=== PATIENT | female | born 1960 | race African-American/Black ===

== ENCOUNTER 2017-03-07 08:12 | Inpatient (IN) | payer OTHER ==
[2017-03-07 09:52] VITALS: BMI 25.0
--- NOTE | 2017-03-07 11:22 | HP ---
COWS - Scale Resting Pulse: 0= [place] 80 or Below Sweatin= Chills/Flushing Restless Observation: 1= Difficult to Sit Still Pupil Size: 1= Pupils >than Normal Bone or Joint Aches: 1= Mild Discomfort Runny Nose/ Eye Tearin= Nasal Congestion GI Upset > 30mins: 2= Nausea/Diarrhea Tremor Observation: 1= Tremor [place], Not Seen Yawning Observation: 1= 1-2x During Session Anxiety or Irritability: 2=Irritable/Anxious Goose Flesh Skin: 3=Piloerection COWS Score: 14 Admission [facility] Chief Complaint: opioid withdrawal sx Allergies/Adverse Reactions: Allergies Allergy/AdvReac Type Severity Reaction Status Date / Time No Known Allergies Allergy Verified 03/07/17 10:11 History of Present Illness: 56 yo f with h/o addiction - crack cocaoien in past, has developed opioid dependence after surgeryand now using percocets daily, last used today. has opioid withdrawal sx when she does not use, denies alcohol use, no seizures, no DTs, no si at thsi time. Exam Limitations: No Limitations - Ebola screening Have you traveled outside of the country in the last 21 days: No Have you had contact with anyone from an Ebola affected area: No Have you been sick,other than usual withdrawal symptoms: No - Review of Systems Constitutional: Chills, Diaphoresis, Night Sweats, Changes in sleep, Weight Stable EENT: reports: Tearing, Nose Congestion Respiratory: reports: No Symptoms reported Cardiac: reports: No Symptoms Reported GI: reports: Diarrhea, Nausea, Poor Appetite, Poor Fluid Intake, Rectal Bleeding , Vomiting, Indigestion, Abdominal cramping : reports: No Symptoms Reported Musculoskeletal: reports: Back Pain, Joint Pain, Muscle Pain Integumentary: reports: Flushing, Sweating Neuro: reports: Headache, Numbness, Tingling, Tremors Endocrine: reports: Increased Thirst Hematology: reports: No Symptoms Reported Psychiatric: reports: Judgement Intact, Mood/Affect Appropiate, Orientated x3, Anxious, Depressed Other Systems: Reviewed and Negative Patient History - Patient Medical History Hx Anemia: No Hx Asthma: No Hx Chronic Obstructive Pulmonary Disease (COPD): No Hx Cancer: No Hx Cardiac Disorders: No Hx Congestive Heart Failure: No Hx Hypertension: Yes Hx Hypercholesterolemia: No Hx Pacemaker: No HX Cerebrovascular Accident: No Hx Seizures: No Hx Dementia: No Hx Diabetes: No Hx Gastrointestinal Disorders: No Hx Liver Disease: No Hx Genitourinary Disorders: No Hx Sexually Transmitted Disorders: Yes (COLD SORE) Hx Renal Disease (ESRD): No Hx Thyroid Disease: No Hx Human Immunodeficiency Virus (HIV): No Hx Hepatitis C: No Hx Depression: Yes (THERAPY ONCE A MONTH) Hx Suicide Attempt: No (no Si) Hx Bipolar Disorder: No Hx Schizophrenia: No - Patient Surgical History Past Surgical History: No Hx Neurologic Surgery: No Hx Cataract Extraction: No Hx Cardiac Surgery: No Hx Lung Surgery: No Hx Breast Surgery: No Hx Breast Biopsy: No Hx Abdominal Surgery: No Hx Appendectomy: No Hx Cholecystectomy: No Hx Genitourinary Surgery: No Hx Section: No Hx Orthopedic Surgery: No Other Surgical History: SURGERY FOR GANGLIA CYST OF RIGHT HAND Anesthesia Reaction: No - PPD History Previous Implant?: No PPD to be Administered?: Yes - Reproductive History Patient is a Female of Child Bearing Age (11 -55 yrs old): No Patient : No - Smoking Cessation Smoking history: Never smoked Have you smoked in the past 12 months: No Hx Chewing Tobacco Use: No Initiated information on smoking cessation: No 'Breaking Loose' booklet given: 03/07/17 - Substance & Tx. History Hx Alcohol Use: No Hx Substance Use: Yes Substance Use Type: Cocaine, Opiates, Prescribed Hx Substance Use Treatment: Yes ([facility]) - Substances Abused PERCOCET Route: Oral Frequency: Daily Amount used: 10-12 10MG PILLS Age of first use: 56 Date of Last Use: 03/07/17 Family Disease History - Family Disease History Family Disease History: Other: Mother (alcoholic) Admission Physical Exam S - Vital Signs Vital Signs: Vital Signs - 24 hr 03/07/17 09:30 Temperature 96.4 F L Pulse Rate 77 Respiratory 20 Rate Blood Pressure 158/106 - Physical General Appearance: Yes: Nourished, Appropriately Dressed, Disheveled, Mild Distress, Thin, Tremorous, Irritable, Sweating, Anxious HEENTM: Yes: EOMI, Hearing grossly Normal, Normocephalic, Normal Voice, OSVALDO, Pharynx Normal, Rhinorrhea Respiratory: Yes: Within Normal Limits, Chest Non-Tender, Lungs Clear, Normal Breath Sounds Neck: Yes: Within Normal Limits, No masses,lesions,Nodules, Supple, Trachea in good position Breast: Yes: Breast Exam Deferred Cardiology: Yes: Within Normal Limits, Regular Rhythm, Regular Rate, S1, S2 Abdominal: Yes: Within Normal Limits, Normal Bowel Sounds, Non Tender, Flat, Soft, Increased Bowel Sounds Genitourinary: Yes: Within Normal Limits Back: Yes: Normal Inspection, Muscle Spasm Musculoskeletal: Yes: Within Normal Limits, full range of Motion, Gait Steady, Pelvis Stable Extremities: Yes: Normal Capillary Refill, Normal Inspection, Normal Range of Motion, Non-Tender, Tremors Neurological: Yes: selling manager II-XII NML intact, Fully Oriented, Alert, Motor Strength 5/5, Normal Response, Depressed Affect Integumentary: Yes: Normal Color, Warm, Diaphoresis, Moist Lymphatic: Yes: Within Normal Limits - Addiitonal Findings: withdrawal sx - Diagnostic (1) Opioid dependence with withdrawal Current Visit: Yes Status: Acute (2) Depression Current Visit: Yes Status: Acute (3) Anxiety Current Visit: Yes Status: Acute (4) Dehydration Current Visit: Yes Status: Acute Cleared for Admission [facility] - Detox or Rehab [facility] Level of Care: Medically Managed Detox Regimen/Protocol: Methadone [facility] Breath Alcohol Content Breath Alcohol Content: 0 Urine Pregancy Test - Result Urine Test Results: Negative- NO Line Present Urine Drug Screen - Results Drug Screen Negative: No Urine Drug Screen Results: OXY-Oxycodone
[2017-03-07] MEDS ORDERED: MAGNESIUM HYDROX 2400MG/30ML ORAL SUSPENSION 30 ML CUP PO PRN (11:24)
[2017-03-07] MEDS ORDERED: P-EPHED 60MG/TRIPROLIDI 2.5MG TABLET PO PRN (11:24)
[2017-03-07] MEDS ORDERED: MENTHOL/PHENOL 1 EACH UD MM PRN (11:24)
[2017-03-07] MEDS ORDERED: guaiFENesin/D-METHORPHAN HB 10 ML UNIT-DOSE CUPS PO PRN (11:24)
[2017-03-07] MEDS ORDERED: MAGNESIUM CITRATE 300 ML BOTTLE PO PRN (11:24)
[2017-03-07] MEDS ORDERED: METHADONE HCL 10 MG TABLET (FOR DETOX USE ONLY) PO ONE ×2 (11:50→23:00)
[2017-03-07] MEDS: cloNIDine HCL 0.1 MG TABLET PO SCH ×2 (12:46→22:18)
[2017-03-07] MEDS: diazePAM 5 MG TABLET PO PRN ×3 (12:49→22:19)
[2017-03-07] MEDS: IBUPROFEN 400 MG TABLET (FP) PO PRN (17:04)
--- NOTE | 2017-03-07 17:32 | CONSULT ---
[facility] Psychiatric Consult - Data Date of interview: 03/07/17 Admission source: [facility] Identifying data: Pt. is a 56 year old female, separted, mother of three, and currently unemployed. This is patient's first admission to [facility]. Pt. admitted for opiate dependence. Substance Abuse History: Smoking Cessation. Smoking history: Never smoked. Have you smoked in the past 12 months: No. Hx Chewing Tobacco Use: No. Initiated information on smoking cessation: No. 'Breaking Loose' booklet given : 03/07/17. - Substance & Tx. History. Hx Alcohol Use: No. Hx Substance Use: Yes. Substance Use Type: Cocaine, Opiates, Prescribed. Hx Substance Use Treatment: Yes ([facility]). - Substances Abused. PERCOCET. Route: Oral. Frequency: Daily. Amount used: 10-12 10MG PILLS. Age of first use: 56. Date of Last Use: 03/07/17 Medical History: Denies. Psychiatric History: Pt. reports one psychatric hospitalization over [address] [facility]. Reports a diagnosis of anxiety and depression. Denies h/o OPC. Reports seeing a therapist daily. Denies h/o psychotrophic medications. Reports one suicide attempt 20 years ago by cutting her left wrist. Pt. denies suicidal and homicidal ideation. Physical/Sexual Abuse/Trauma History: Denies. Mental Status Exam - Mental Status Exam Alert and Oriented to: Time, Place, Person Cognitive Function: Good Patient Appearance: Well Groomed Mood: Hopeful, Happy Affect: Appropriate Patient Behavior: Cooperative Speech Pattern: Clear, Appropriate Voice Loudness: Normal Thought Process: Goal Oriented Thought Disorder: Not Present Hallucinations: Denies Suicidal Ideation: Denies Homicidal Ideation: Denies Insight/Judgement: Poor Sleep: Fair Appetite: Good Muscle strength/Tone: Normal Gait/Station: Normal Psychiatric Findings - Problem List ([place] 1, 2,3) (1) Opioid dependence with withdrawal Current Visit: Yes Status: Acute (2) MDD (major depressive disorder), single episode Current Visit: No Status: Suspected Comment: Self reports. One episode over 8 years agol. - Initial Treatment Plan Initial Treatment Plan: Psychoeducation provided. Detoxification in progress. Observation.
[2017-03-07 20:43] LABS: URINE APPEARANCE CLEAR; URINE BILIRUBIN NEGATIVE (NEGATIVE); URINE BLOOD NEGATIVE (NEGATIVE); URINE COLOR LTYELLOW; URINE GLUCOSE (UA) NEGATIVE (NEGATIVE); URINE KETONE NEGATIVE (NEGATIVE); URINE LEUK ESTERASE NEGATIVE (NEGATIVE); URINE NITRITE NEGATIVE (NEGATIVE); URINE PROTEIN NEGATIVE (NEGATIVE); URINE UROBILINOGEN NEGATIVE mg/dL (0.2-1.0)
[2017-03-07] MEDS: THIAMINE HCL 100 MG TABLET (FP) PO SCH (22:19)
[2017-03-08] MEDS: diazePAM 5 MG TABLET PO PRN ×3 (07:22→22:22)
[2017-03-08 09:49] LABS: HEMATOCRIT 39.1 % (32.4-45.2); HEMOGLOBIN 12.5 GM/dL (10.7-15.3); MCH 28.8 pg (25.7-33.7); MCHC 31.9 g/dl (32.0-36.0); MEAN CELL VOLUME 90.3 fl (80-96); MEAN PLT VOLUME 10.3 fl (7.5-11.1); PLATELET COUNT 197 K/MM3 (134-434); RBC 4.33 M/mm3 (3.60-5.2); RDW 13.8 % (11.6-15.6)
[2017-03-08] MEDS ORDERED: METHADONE HCL 10 MG TABLET (FOR DETOX USE ONLY) PO ONE (10:00)
[2017-03-08 10:04] LABS: ALK PHOS 81 U/L (45-117); ANION GAP 6 (8-16); BILIRUBIN,TOTAL 0.4 mg/dL (0.2-1.0); BLOOD UREA NITROGEN 13 mg/dL (7-18); CALCIUM 8.9 mg/dL (8.5-10.1); CHLORIDE 106 mmol/L (98-107); CO2 28 mmol/L (21-32); CREATININE 0.8 mg/dL (0.55-1.02); GLUCOSE,RANDOM 71 mg/dL (74-106); POTASSIUM 3.9 mmol/L (3.5-5.1); SGOT/AST 26 U/L (15-37); SGPT/ALT 24 U/L (12-78); SODIUM 140 mmol/L (136-145); TOT PROT 7.2 g/dl (6.4-8.2)
[2017-03-08] MEDS: cloNIDine HCL 0.1 MG TABLET PO SCH ×2 (10:47→22:22)
[2017-03-08] MEDS: amLODIPine BESYLATE 10 MG TABLET (FP) PO SCH (10:47)
[2017-03-08] MEDS: PRENATAL VITAMINS W/ FOLIC ACID TABLET (FP) PO SCH (10:47)
--- NOTE | 2017-03-08 10:50 | PN ---
BHS COWS - Scale Resting Pulse: 0= [place] 80 or Below Sweatin=Flushed/Facial Moisture Restless Observation: 1= Difficult to Sit Still Pupil Size: 0= Normal to Room Light Bone or Joint Aches: 2= Severe Diffuse Aches Runny Nose/ Eye Tearin= Runny Nose/Eyes GI Upset > 30mins: 0= None Tremor Observation of Outstretched Hands: 2= Slight Tremor Visible Yawning Observation: 2= >3x During Session Anxiety or Irritability: 2=Irritable/Anxious Goose Flesh Skin: 0=Smooth Skin COWS Score: 13 BHS Progress Note (SOAP) Subjective: agitation sweats shakes interrupted sleep Objective: 03/08/17 10:49 Vital Signs Temperature 97.0 F L 03/08/17 07:42 Pulse Rate 56 L 03/08/17 07:42 Respiratory Rate 16 03/08/17 07:42 Blood Pressure 110/73 03/08/17 07:42 O2 Sat by Pulse Oximetry (%) Laboratory Tests 03/07/17 03/08/17 03/08/17 19:00 05:45 05:45 WBC 4.0 RBC 4.33 Hgb 12.5 Hct 39.1 MCV 90.3 MCH 28.8 MCHC 31.9 L RDW 13.8 Plt Count 197 MPV 10.3 Sodium 140 Potassium 3.9 Chloride 106 Carbon Dioxide 28 Anion Gap 6 L BUN 13 Creatinine 0.8 Creat Clearance w eGFR > 60 Random Glucose 71 L Calcium 8.9 Total Bilirubin 0.4 AST 26 ALT 24 Alkaline Phosphatase 81 Total Protein 7.2 Albumin 4.0 Urine Color Ltyellow Urine Appearance Clear Urine pH 5.0 Ur Specific [place] 1.013 Urine Protein Negative Urine Glucose (UA) Negative Urine Ketones Negative Urine Blood Negative Urine Nitrite Negative Urine Bilirubin Negative Urine Urobilinogen Negative Ur Leukocyte Esterase Negative aaox3 ambulating no acute distress Assessment: 03/08/17 10:50 withdrawal sx Plan: continue detox increase fluids
--- NOTE | 2017-03-08 15:19 | EKG ---
Test Reason : Blood Pressure : / mmHG Vent. Rate : 061 BPM Atrial Rate : 061 BPM P-R Int : 176 ms QRS Dur : 088 ms QT Int : 442 ms P-R-T Axes : 062 061 054 degrees QTc Int : 444 ms NORMAL SINUS RHYTHM CANNOT RULE OUT ANTERIOR INFARCT , AGE UNDETERMINED ABNORMAL ECG NO PREVIOUS ECGS AVAILABLE Confirmed by MD TOBIAS, DIANNE ([id number]) on 03/08/2017 3:19:31 PM Referred By: Confirmed By:DIANNE COLLADO MD
[2017-03-08] MEDS: THIAMINE HCL 100 MG TABLET (FP) PO SCH (22:22)
[2017-03-08] MEDS: ACETAMINOPHEN 325 MG TABLET (FP) PO PRN (22:23)
[2017-03-09] MEDS: diazePAM 5 MG TABLET PO PRN ×4 (05:49→20:47)
[2017-03-09] MEDS ORDERED: METHADONE HCL 5 MG TABLET (FOR DETOX USE ONLY) PO ONE (10:00)
[2017-03-09] MEDS: cloNIDine HCL 0.1 MG TABLET PO SCH ×2 (10:55→22:37)
[2017-03-09] MEDS: PRENATAL VITAMINS W/ FOLIC ACID TABLET (FP) PO SCH (10:55)
[2017-03-09] MEDS: amLODIPine BESYLATE 10 MG TABLET (FP) PO SCH (10:56)
[2017-03-09] MEDS: LOPERAMIDE HCL 2 MG CAPSULE PO PRN ×2 (10:59→22:38)
[2017-03-09] MEDS: HYDROCORTISONE 1% TOPICAL CREAM 30 GM TUBE TP PRN (14:12)
--- NOTE | 2017-03-09 14:59 | PN ---
BHS COWS - Scale Resting Pulse: 0= [place] 80 or Below Sweatin= Chills/Flushing Restless Observation: 1= Difficult to Sit Still Pupil Size: 0= Normal to Room Light Bone or Joint Aches: 1= Mild Discomfort Runny Nose/ Eye Tearin= Runny Nose/Eyes GI Upset > 30mins: 2= Nausea/Diarrhea Tremor Observation of Outstretched Hands: 2= Slight Tremor Visible Yawning Observation: 2= >3x During Session Anxiety or Irritability: 2=Irritable/Anxious Goose Flesh Skin: 0=Smooth Skin COWS Score: 13 BHS Progress Note (SOAP) Subjective: Interrupted sleep, chills, sweat, body aches, anxious Objective: 03/09/17 14:57 Last Vital Signs Temp Pulse Resp BP Pulse Ox 97.1 F L 60 20 113/77 03/09/17 10:32 03/09/17 10:32 03/09/17 10:32 03/09/17 10:32 Laboratory Last Values WBC 4.0 K/mm3 (4.0-10.0) 03/08/17 05:45 RBC 4.33 M/mm3 (3.60-5.2) 03/08/17 05:45 Hgb 12.5 GM/dL (10.7-15.3) 03/08/17 05:45 Hct 39.1 % (32.4-45.2) 03/08/17 05:45 MCV 90.3 fl (80-96) 03/08/17 05:45 MCH 28.8 pg (25.7-33.7) 03/08/17 05:45 MCHC 31.9 g/dl (32.0-36.0) L 03/08/17 05:45 RDW 13.8 % (11.6-15.6) 03/08/17 05:45 Plt Count 197 K/MM3 (134-434) 03/08/17 05:45 MPV 10.3 fl (7.5-11.1) 03/08/17 05:45 Sodium 140 mmol/L (136-145) 03/08/17 05:45 Potassium 3.9 mmol/L (3.5-5.1) 03/08/17 05:45 Chloride 106 mmol/L (98-107) 03/08/17 05:45 Carbon Dioxide 28 mmol/L (21-32) 03/08/17 05:45 Anion Gap 6 (8-16) L 03/08/17 05:45 BUN 13 mg/dL (7-18) 03/08/17 05:45 Creatinine 0.8 mg/dL (0.55-1.02) 03/08/17 05:45 Creat Clearance w eGFR > 60 (>60) 03/08/17 05:45 Random Glucose 71 mg/dL (74-106) L 03/08/17 05:45 Calcium 8.9 mg/dL (8.5-10.1) 03/08/17 05:45 Total Bilirubin 0.4 mg/dL (0.2-1.0) 03/08/17 05:45 AST 26 U/L (15-37) 03/08/17 05:45 ALT 24 U/L (12-78) 03/08/17 05:45 Alkaline Phosphatase 81 U/L (45-117) 03/08/17 05:45 Total Protein 7.2 g/dl (6.4-8.2) 03/08/17 05:45 Albumin 4.0 g/dl (3.4-5.0) 03/08/17 05:45 Urine Color Ltyellow 03/07/17 19:00 Urine Appearance Clear 03/07/17 19:00 Urine pH 5.0 (5.0-8.0) 03/07/17 19:00 Ur Specific [place] 1.013 (1.001-1.035) 03/07/17 19:00 Urine Protein Negative (NEGATIVE) 03/07/17 19:00 Urine Glucose (UA) Negative (NEGATIVE) 03/07/17 19:00 Urine Ketones Negative (NEGATIVE) 03/07/17 19:00 Urine Blood Negative (NEGATIVE) 03/07/17 19:00 Urine Nitrite Negative (NEGATIVE) 03/07/17 19:00 Urine Bilirubin Negative (NEGATIVE) 03/07/17 19:00 Urine Urobilinogen Negative mg/dL (0.2-1.0) 03/07/17 19:00 Ur Leukocyte Esterase Negative (NEGATIVE) 03/07/17 19:00 RPR Titer Nonreactive (NONREACTIVE) 03/08/17 05:45 Labs noted Assessment: 01/20/18 14:57 AOx 3 Ambulating No distress withdrawal symptoms Plan: Increase fluids continue detox
[2017-03-09] MEDS: THIAMINE HCL 100 MG TABLET (FP) PO SCH (22:38)
[2017-03-09] MEDS: hydrOXYzine PAMOATE 50 MG CAPSULE (FP) PO PRN (22:39)
[2017-03-10] MEDS: diazePAM 5 MG TABLET PO PRN ×3 (01:18→10:32)
[2017-03-10] MEDS ORDERED: METHADONE HCL 5 MG TABLET (FOR DETOX USE ONLY) PO ONE (10:00)
[2017-03-10] MEDS: PRENATAL VITAMINS W/ FOLIC ACID TABLET (FP) PO SCH (10:32)
[2017-03-10] MEDS: cloNIDine HCL 0.1 MG TABLET PO SCH ×2 (10:32→22:42)
[2017-03-10] MEDS: amLODIPine BESYLATE 10 MG TABLET (FP) PO SCH (10:33)
[2017-03-10] MEDS: IBUPROFEN 400 MG TABLET (FP) PO PRN ×2 (10:36→21:31)
--- NOTE | 2017-03-10 11:23 | PN ---
BHS Progress Note (SOAP) Subjective: general body ache gi distress sweat Objective: 03/10/17 11:22 Vital Signs Temperature 98.1 F 03/10/17 10:28 Pulse Rate 67 03/10/17 10:28 Respiratory Rate 18 03/10/17 10:28 Blood Pressure 136/82 03/10/17 10:28 O2 Sat by Pulse Oximetry (%) Laboratory Last Values WBC 4.0 K/mm3 (4.0-10.0) 03/08/17 05:45 RBC 4.33 M/mm3 (3.60-5.2) 03/08/17 05:45 Hgb 12.5 GM/dL (10.7-15.3) 03/08/17 05:45 Hct 39.1 % (32.4-45.2) 03/08/17 05:45 MCV 90.3 fl (80-96) 03/08/17 05:45 MCH 28.8 pg (25.7-33.7) 03/08/17 05:45 MCHC 31.9 g/dl (32.0-36.0) L 03/08/17 05:45 RDW 13.8 % (11.6-15.6) 03/08/17 05:45 Plt Count 197 K/MM3 (134-434) 03/08/17 05:45 MPV 10.3 fl (7.5-11.1) 03/08/17 05:45 Sodium 140 mmol/L (136-145) 03/08/17 05:45 Potassium 3.9 mmol/L (3.5-5.1) 03/08/17 05:45 Chloride 106 mmol/L (98-107) 03/08/17 05:45 Carbon Dioxide 28 mmol/L (21-32) 03/08/17 05:45 Anion Gap 6 (8-16) L 03/08/17 05:45 BUN 13 mg/dL (7-18) 03/08/17 05:45 Creatinine 0.8 mg/dL (0.55-1.02) 03/08/17 05:45 Creat Clearance w eGFR > 60 (>60) 03/08/17 05:45 Random Glucose 71 mg/dL (74-106) L 03/08/17 05:45 Calcium 8.9 mg/dL (8.5-10.1) 03/08/17 05:45 Total Bilirubin 0.4 mg/dL (0.2-1.0) 03/08/17 05:45 AST 26 U/L (15-37) 03/08/17 05:45 ALT 24 U/L (12-78) 03/08/17 05:45 Alkaline Phosphatase 81 U/L (45-117) 03/08/17 05:45 Total Protein 7.2 g/dl (6.4-8.2) 03/08/17 05:45 Albumin 4.0 g/dl (3.4-5.0) 03/08/17 05:45 Urine Color Ltyellow 03/07/17 19:00 Urine Appearance Clear 03/07/17 19:00 Urine pH 5.0 (5.0-8.0) 03/07/17 19:00 Ur Specific [place] 1.013 (1.001-1.035) 03/07/17 19:00 Urine Protein Negative (NEGATIVE) 03/07/17 19:00 Urine Glucose (UA) Negative (NEGATIVE) 03/07/17 19:00 Urine Ketones Negative (NEGATIVE) 03/07/17 19:00 Urine Blood Negative (NEGATIVE) 03/07/17 19:00 Urine Nitrite Negative (NEGATIVE) 03/07/17 19:00 Urine Bilirubin Negative (NEGATIVE) 03/07/17 19:00 Urine Urobilinogen Negative mg/dL (0.2-1.0) 03/07/17 19:00 Ur Leukocyte Esterase Negative (NEGATIVE) 03/07/17 19:00 RPR Titer Nonreactive (NONREACTIVE) 03/08/17 05:45 lab noted Assessment: 03/10/17 11:22 withdrawal sx Plan: continue detox
[2017-03-10] MEDS ORDERED: ONDANSETRON *ODT* 4 MG TABLET SL PRN (18:05)
[2017-03-10] MEDS: LOPERAMIDE HCL 2 MG CAPSULE PO PRN (19:43)
[2017-03-10] MEDS: THIAMINE HCL 100 MG TABLET (FP) PO SCH (22:42)
[2017-03-11] MEDS: IBUPROFEN 400 MG TABLET (FP) PO PRN ×3 (04:15→15:51)
[2017-03-11] MEDS: ACETAMINOPHEN 325 MG TABLET (FP) PO PRN ×2 (06:23→19:40)
[2017-03-11] MEDS: CYCLOBENZAPRINE HCL 5 MG TABLET PO PRN ×2 (07:47→22:25)
[2017-03-11] MEDS ORDERED: METHADONE HCL 10 MG TABLET (FOR DETOX USE ONLY) PO ONE (10:00)
[2017-03-11] MEDS: amLODIPine BESYLATE 10 MG TABLET (FP) PO SCH (10:43)
[2017-03-11] MEDS: PRENATAL VITAMINS W/ FOLIC ACID TABLET (FP) PO SCH (10:43)
[2017-03-11] MEDS: cloNIDine HCL 0.1 MG TABLET PO SCH ×2 (10:43→22:25)
--- NOTE | 2017-03-11 14:24 | PN ---
S Progress Note (SOAP) Subjective: Generalized pain sleep disturbance diarrhea Objective: 03/11/17 14:23 Vital Signs Temperature 98.2 F 03/11/17 09:25 Pulse Rate 65 03/11/17 09:25 Respiratory Rate 18 03/11/17 09:25 Blood Pressure 123/78 03/11/17 09:25 O2 Sat by Pulse Oximetry (%) Assessment: 03/11/17 14:23 withdrawal sx Ambulating around steadily No acute distress Plan: continue detox D/c tomorrow
[2017-03-11] MEDS: MAG HYDROX/AL HYDROX/SIMETH 30 ML UNIT-DOSE CUP PO PRN ×2 (15:52→22:54)
[2017-03-11] MEDS: HYDROCORTISONE 1% TOPICAL CREAM 30 GM TUBE TP PRN (18:04)
[2017-03-11] MEDS: hydrOXYzine PAMOATE 50 MG CAPSULE (FP) PO PRN (22:25)
[2017-03-11] MEDS: THIAMINE HCL 100 MG TABLET (FP) PO SCH (22:25)
[2017-03-12] MEDS: hydrOXYzine PAMOATE 50 MG CAPSULE (FP) PO PRN (04:44)
[2017-03-12] MEDS: CYCLOBENZAPRINE HCL 5 MG TABLET PO PRN (04:44)
[2017-03-12] MEDS: IBUPROFEN 400 MG TABLET (FP) PO PRN (04:44)
[2017-03-12] MEDS ORDERED: METHADONE HCL 5 MG TABLET (FOR DETOX USE ONLY) PO ONE (06:00)
[2017-03-12 06:33] VITALS: TEMP 97.7
--- NOTE | 2017-03-12 09:17 | DS ---
[facility] Detox Discharge Summary Admission Date: 03/07/17 Discharge Date: 03/12/17 - History Present History: Opioid Dependence Pertinent Past History: SEE BELOW ADMITTED IN ACUTE WITHDRAWAL MEDICALLY STABLE ON DC DETOX COMPLETED DC TODAY Laboratory Tests 03/07/17 03/08/17 03/08/17 19:00 05:45 05:45 WBC 4.0 RBC 4.33 Hgb 12.5 Hct 39.1 MCV 90.3 MCH 28.8 MCHC 31.9 L RDW 13.8 Plt Count 197 MPV 10.3 Sodium 140 Potassium 3.9 Chloride 106 Carbon Dioxide 28 Anion Gap 6 L BUN 13 Creatinine 0.8 Creat Clearance w eGFR > 60 Random Glucose 71 L Calcium 8.9 Total Bilirubin 0.4 AST 26 ALT 24 Alkaline Phosphatase 81 Total Protein 7.2 Albumin 4.0 Urine Color Ltyellow Urine Appearance Clear Urine pH 5.0 Ur Specific [place] 1.013 Urine Protein Negative Urine Glucose (UA) Negative Urine Ketones Negative Urine Blood Negative Urine Nitrite Negative Urine Bilirubin Negative Urine Urobilinogen Negative Ur Leukocyte Esterase Negative RPR Titer 03/08/17 05:45 WBC RBC Hgb Hct MCV MCH MCHC RDW Plt Count MPV Sodium Potassium Chloride Carbon Dioxide Anion Gap BUN Creatinine Creat Clearance w eGFR Random Glucose Calcium Total Bilirubin AST ALT Alkaline Phosphatase Total Protein Albumin Urine Color Urine Appearance Urine pH Ur Specific [place] Urine Protein Urine Glucose (UA) Urine Ketones Urine Blood Urine Nitrite Urine Bilirubin Urine Urobilinogen Ur Leukocyte Esterase RPR Titer Nonreactive Vital Signs - 24 hr 03/11/17 03/11/17 03/11/17 09:25 14:41 18:38 Temperature 98.2 F 98.2 F 99.5 F Pulse Rate 65 58 L 73 Respiratory 18 18 18 Rate Blood Pressure 123/78 113/56 113/77 03/11/17 03/12/17 03/12/17 23:11 00:30 06:00 Temperature 97.5 F L 97.7 F Pulse Rate 63 58 L Respiratory 18 18 16 Rate Blood Pressure 110/63 124/80 - Physical Exam Results Vital Signs: Vital Signs Temperature 97.7 F 03/12/17 06:00 Pulse Rate 58 L 03/12/17 06:00 Respiratory Rate 16 03/12/17 06:00 Blood Pressure 124/80 03/12/17 06:00 O2 Sat by Pulse Oximetry (%) - Treatment Hospital Course: Detox Protocol Followed, Detoxed Safely, Responded well, Discharged Condition Good, Rehab Referral Accepted - Medication Discharge Medications: Ambulatory Orders Amlodipine Besylate 10 mg PO DAILY 03/07/17 Cholecalciferol (Vitamin D3) [Vitamin D3 -] 1,000 unit PO DAILY 03/07/17 Omeprazole 20 mg PO DAILY PRN 03/07/17 Valacyclovir HCl [Valtrex -] 500 mg PO DAILY 03/07/17 - Diagnosis (1) Anxiety Current Visit: Yes Status: Acute (2) Depression Current Visit: Yes Status: Acute (3) Opioid dependence with withdrawal Current Visit: Yes Status: Acute - AMA Did Patient Leave Against Medical Advice: No
[2017-03-12] MEDS: amLODIPine BESYLATE 10 MG TABLET (FP) PO SCH (09:21)
[2017-03-12] MEDS: PRENATAL VITAMINS W/ FOLIC ACID TABLET (FP) PO SCH (09:21)
[2017-03-12] MEDS: cloNIDine HCL 0.1 MG TABLET PO SCH (09:21)
[2017-03-12 09:39] VITALS: BP 138/81; PULSE 60
== END 2017-03-12 11:35 | disposition home or self-care (01) | DRG 773 ==
LOC: YASAS 08:12 → Y6N 11:46
PROVIDERS: ADMIT Internal Medicine; ATTEND Internal Medicine
PROC: HZ2ZZZZ Detoxification Services for Substance Abuse Treatment (ICD-10-PCS; principal; 2017-03-07)
DX: F11.23 Opioid dependence with withdrawal (principal); F41.9 Anxiety disorder, unspecified; F32.9 Major depressive disorder, single episode, unspecified; E86.0 Dehydration; I10 Essential (primary) hypertension
CPT/HCPCS: 36415; 80053; 81003; 85027; 86593; 93005; 93010; J0735

== ENCOUNTER 2018-02-21 11:00 | Inpatient (IN) | payer OTHER ==
[2018-02-21 11:59] VITALS: BMI 24.1
--- NOTE | 2018-02-21 15:17 | HP ---
COWS - Scale Resting Pulse: 0= MD 80 or Below Sweatin= Chills/Flushing Restless Observation: 3= Extraneous Movement Pupil Size: 1= Pupils >than Normal Bone or Joint Aches: 2= Severe Diffuse Aches Runny Nose/ Eye Tearin= Runny Nose/Eyes GI Upset > 30mins: 3= Vomiting/Diarrhea Tremor Observation: 2= Slight Tremor Visible Yawning Observation: 2= >3x During Session Anxiety or Irritability: 2=Irritable/Anxious Goose Flesh Skin: 0=Smooth Skin COWS Score: 18 CIWA Score - Admission Criteria [facility] Guidelines: Admission for Medically Managed Detox: Requires at least one of the followin. CIWA greater than 12 2. Seizures within the past 24 hours 3. Delirium tremens within the past 24 hours 4. Hallucinations within the past 24 hours 5. Acute intervention needed for co occurring medical disorder 6. Acute intervention needed for co occurring psychiatric disorder 7. Severe withdrawal that cannot be handled at a lower level of care (continued vomiting, continued diarrhea, abnormal vital signs) requiring intravenous medication and/or fluids 8. Admission ROS [facility] - [facility] Chief Complaint: i need help to stop using percocet Allergies/Adverse Reactions: Allergies Allergy/AdvReac Type Severity Reaction Status Date / Time No Known Allergies Allergy Verified 02/21/18 14:06 History of Present Illness: this 57 years old female with percocet dependence,seeking detox,withdrawal symptom,last treatment 03/07/17 to 03/12/17 hypertension on medication herpes right buttock seen by pmd 3 weeks ago longest period of sobriety 8 years anxiety,depression,insomnia Exam Limitations: No Limitations - Ebola screening Have you traveled outside of the country in the last 21 days: No Have you had contact with anyone from an Ebola affected area: No Have you been sick,other than usual withdrawal symptoms: No Do you have a fever: No - Review of Systems Constitutional: Chills, Loss of Appetite, Malaise, Night Sweats, Changes in sleep, Weakness, Unintentional Wgt. Loss EENT: reports: Tearing, Nose Congestion Respiratory: reports: No Symptoms reported Cardiac: reports: No Symptoms Reported GI: reports: Diarrhea, Nausea, Poor Appetite, Abdominal cramping : reports: No Symptoms Reported Musculoskeletal: reports: Back Pain, Joint Pain, Muscle Pain Integumentary: reports: Dryness Neuro: reports: Headache, Tremors Endocrine: reports: No Symptoms Reported Hematology: reports: No Symptoms Reported Psychiatric: reports: No Sypmtoms Reported, Judgement Intact, Mood/Affect Appropiate, Orientated x3, Agitated, Anxious (insomnia) Patient History - Patient Medical History Hx Anemia: No Hx Asthma: No Hx Chronic Obstructive Pulmonary Disease (COPD): No Hx Cancer: No Hx Cardiac Disorders: No Hx Congestive Heart Failure: No Hx Hypertension: Yes (on meds) Hx Hypercholesterolemia: No Hx Pacemaker: No HX Cerebrovascular Accident: No Hx Seizures: No Hx Dementia: No Hx Diabetes: No Hx Gastrointestinal Disorders: No Hx Liver Disease: No Hx Genitourinary Disorders: No Hx Sexually Transmitted Disorders: Yes (COLD SORE) Hx Renal Disease (ESRD): No Hx Thyroid Disease: No Hx Human Immunodeficiency Virus (HIV): No (last 2007 negative) Hx Hepatitis C: No Hx Depression: Yes (THERAPY ONCE A MONTH) Hx Suicide Attempt: Yes (cuttter) Hx Bipolar Disorder: No Hx Schizophrenia: No Other Medical History: no suicidal,no homicidal - Patient Surgical History Past Surgical History: No Hx Neurologic Surgery: No Hx Cataract Extraction: No Hx Cardiac Surgery: No Hx Lung Surgery: No Hx Breast Surgery: No Hx Breast Biopsy: No Hx Abdominal Surgery: No Hx Appendectomy: No Hx Cholecystectomy: No Hx Genitourinary Surgery: No Hx Section: No Hx Orthopedic Surgery: No Other Surgical History: SURGERY FOR GANGLiON CYST OF RIGHT HAND Anesthesia Reaction: No - PPD History Previous Implant?: Yes Documented Results: Negative w/proof Implanted On Prior [facility] Admission?: Yes Date: 03/09/17 PPD to be Administered?: No - Reproductive History Patient : No - Smoking Cessation Smoking history: Never smoked Have you smoked in the past 12 months: No Hx Chewing Tobacco Use: No - Substance & Tx. History Hx Alcohol Use: No Hx Substance Use: Yes Substance Use Type: Opiates Hx Substance Use Treatment: Yes ([facility] 03/07/17 03/12/17) - Substances Abused Percocet Route: Oral Frequency: Daily Amount used: 10 10mg tablet Age of first use: 56 Date of Last Use: 02/21/18 Family Disease History - Family Disease History Family Disease History: Other: Mother (alcoholic) Admission Physical Exam [facility] - Vital Signs Vital Signs: Vital Signs - 24 hr 02/21/18 11:49 Temperature 97.5 F L Pulse Rate 57 L Respiratory 20 Rate Blood Pressure 137/86 - Physical General Appearance: Yes: Moderate Distress, Tremorous, Irritable, Sweating, Anxious HEENTM: Yes: Normal ENT Inspection, OSVALDO, Pharynx Normal Respiratory: Yes: Lungs Clear, Normal Breath Sounds, No Respiratory Distress Neck: Yes: Within Normal Limits, Supple, Trachea in good position Breast: Yes: Breast Exam Deferred Cardiology: Yes: Within Normal Limits, Regular Rhythm, Regular Rate, S1, S2 Abdominal: Yes: Within Normal Limits, Normal Bowel Sounds, Non Tender, Flat, Soft Genitourinary: Yes: Within Normal Limits Back: Yes: Muscle Spasm Musculoskeletal: Yes: full range of Motion, Back pain, Muscle Pain Extremities: Yes: Tremors Neurological: Yes: senior foreman II-XII NML intact, Fully Oriented, Alert, Motor Strength 5/5 Integumentary: Yes: Dry, Other (herpes right buttock) Lymphatic: Yes: Within Normal Limits - Diagnostic (1) Opioid dependence with withdrawal Current Visit: Yes Status: Acute (2) Dehydration Current Visit: No Status: Acute (3) Anxiety and depression Current Visit: Yes Status: Acute (4) History of herpes simplex infection Current Visit: Yes Status: Chronic (5) Weight loss Current Visit: Yes Status: Acute Cleared for Admission [facility] - Detox or Rehab [facility] Level of Care: Medically Managed Detox Regimen/Protocol: Methadone [facility] Breath Alcohol Content Breath Alcohol Content: 0 Urine Pregancy Test - Result Urine Test Results: Negative- NO Line Present Urine Drug Screen - Results Drug Screen Negative: No Urine Drug Screen Results: OPI-Opiates
[2018-02-21] MEDS ORDERED: P-EPHED 60MG/TRIPROLIDI 2.5MG TABLET PO PRN (15:38)
[2018-02-21] MEDS ORDERED: IBUPROFEN 400 MG TABLET (FP) PO PRN (15:38)
[2018-02-21] MEDS ORDERED: LOPERAMIDE HCL 2 MG CAPSULE PO PRN (15:38)
[2018-02-21] MEDS ORDERED: MAG HYDROX/AL HYDROX/SIMETH 30 ML UNIT-DOSE CUP PO PRN (15:38)
[2018-02-21] MEDS ORDERED: MENTHOL/PHENOL 1 EACH UD MM PRN (15:38)
[2018-02-21] MEDS ORDERED: MAGNESIUM CITRATE 300 ML BOTTLE PO PRN (15:38)
[2018-02-21] MEDS ORDERED: MAGNESIUM HYDROX 2400MG/30ML ORAL SUSPENSION 30 ML CUP PO PRN (15:38)
[2018-02-21] MEDS ORDERED: guaiFENesin/D-METHORPHAN HB 10 ML UNIT-DOSE CUPS PO PRN (15:38)
[2018-02-21] MEDS ORDERED: ACETAMINOPHEN 325 MG TABLET (FP) PO PRN (15:38)
[2018-02-21] MEDS ORDERED: METHADONE HCL 10 MG TABLET (FOR DETOX USE ONLY) PO ONE ×2 (17:00→23:00)
[2018-02-21] MEDS: diazePAM 5 MG TABLET PO PRN (17:43)
[2018-02-21] MEDS: MELATONIN 5 MG TABLETS PO PRN (22:10)
[2018-02-21] MEDS: THIAMINE HCL 100 MG TABLET (FP) PO SCH (22:10)
[2018-02-22] MEDS: diazePAM 5 MG TABLET PO PRN ×4 (03:42→22:24)
[2018-02-22] MEDS ORDERED: METHADONE HCL 10 MG TABLET (FOR DETOX USE ONLY) PO ONE (10:00)
[2018-02-22] MEDS ORDERED: COLLOIDAL OATMEAL 1 BAR EACH TP PRN (10:03)
[2018-02-22 10:20] LABS: HEMATOCRIT 35.1 % (32.4-45.2); HEMOGLOBIN 11.2 GM/dL (10.7-15.3); MCH 28.7 pg (25.7-33.7); MEAN CELL VOLUME 89.9 fl (80-96); MEAN PLT VOLUME 9.4 fl (7.5-11.1); PLATELET COUNT 205 K/MM3 (134-434); RBC 3.91 M/mm3 (3.60-5.2); RDW 13.8 % (11.6-15.6); WHITE BLOOD COUNT 3.9 K/mm3 (4.0-10.0)
[2018-02-22 10:53] LABS: ALBUMIN 3.4 g/dl (3.4-5.0); ALK PHOS 66 U/L (45-117); ANION GAP 8 MMOL/L (8-16); BILIRUBIN,TOTAL 0.4 mg/dL (0.2-1); BLOOD UREA NITROGEN 18 mg/dL (7-18); CALCIUM 8.7 mg/dL (8.5-10.1); CHLORIDE 106 mmol/L (98-107); CO2 27 mmol/L (21-32); CREATININE 0.9 mg/dL (0.55-1.3); GLUCOSE,RANDOM 73 mg/dL (74-106); POTASSIUM 4.5 mmol/L (3.5-5.1); SGOT/AST 22 U/L (15-37); SGPT/ALT 19 U/L (13-61); SODIUM 140 mmol/L (136-145); TOT PROT 6.1 g/dl (6.4-8.2)
[2018-02-22] MEDS: PANTOPRAZOLE 20 MG TABLET (FP) PO SCH (11:07)
[2018-02-22] MEDS: amLODIPine BESYLATE 10 MG TABLET (FP) PO SCH (11:07)
[2018-02-22] MEDS: PRENATAL VITAMINS W/ FOLIC ACID TABLET (FP) PO SCH (11:07)
[2018-02-22] MEDS: CHOLECALCIFEROL (VITAMIN D3) 1,000 UNIT TABLET (FP) PO SCH (11:09)
[2018-02-22] MEDS: valACYclovir HCL 500 MG TABLET (FP) PO SCH (11:09)
[2018-02-22] MEDS: BACITRACIN 0.9 GM PACKET TP SCH ×2 (11:11→22:21)
--- NOTE | 2018-02-22 15:16 | CONSULT ---
[facility] Psychiatric Consult - Data Date of interview: 02/22/18 Admission source: [facility] Identifying data: Readmission to [facility] for this 57 y/o AA female currently undregoing detoxification treatment, on , for opioid dependence. Patient is , a mother of three, domiciled, unemployed and supported on SSI benefits. Substance Abuse History: Discussed with patient in session. Details in current [facility] report : Smoking history: Never smoked. Have you smoked in the past 12 months: No. Hx Chewing Tobacco Use: No. - Substance & Tx. History. Hx Alcohol Use: No. Hx Substance Use: Yes. Substance Use Type: Opiates. Hx [facility] - Substances Abused. * * Percocet. Route: Oral. Frequency: Daily. Amount used: 10 10mg tablet. Age of first use: 56. Date of Last Use: 02/21/18 Medical History: GERD and hypertension. Psychiatric History: Patient endorses a history of multiple psychiatric hospitalizations ([facility], [facility], [facility] in [facility]). Diagnosed with MDD and Anxiety Disorder. Ms Garcia reports that she sees a private psychiatrist in [facility] for medication management (abilify 5 mg/day + lexapro 10 mg/day + xanax : dose not recalled). Admits to a distant history (six years ago) of a suicide attempt via self-mutilation (wrist-cutting). Physical/Sexual Abuse/Trauma History: Not discussed. Patient declines. Additional Comment: Urine Drug Screen Results: OPI-Opiates. Noted. Mental Status Exam - Mental Status Exam Alert and Oriented to: Time, Place, Person Patient Appearance: Well Groomed Mood: Withdrawn, Hopeful Affect: Appropriate, Normal Range Patient Behavior: Fatigued, Cooperative Speech Pattern: Clear, Appropriate Voice Loudness: Normal Thought Process: Goal Oriented Thought Disorder: Not Present Hallucinations: Denies Suicidal Ideation: Denies Homicidal Ideation: Denies Insight/Judgement: Poor Sleep: Poorly, Difficulty falling asleep Appetite: Good Muscle strength/Tone: Normal Gait/Station: Normal Psychiatric Findings - Problem List ([place] 1, 2,3) (1) Opioid dependence with withdrawal Current Visit: Yes Status: Acute (2) Substance induced mood disorder Current Visit: Yes Status: Chronic (3) Depressive disorder Current Visit: No Status: Chronic (4) Insomnia Current Visit: Yes Status: Chronic - Initial Treatment Plan Initial Treatment Plan: Psychoeducation. Sleep hygiene. Detoxification. NA meetings. Motivational rounds. Supportive, group therapy. Patient insists on resuming lexapro and abilify. Ordered : lexapro 10 mg po daily + abilify 5 mg po daily. Side effects/benefits of both drugs are discussed with the patient. Insomnia is addressed with melatonin at bedtime. Ms Garcia is in agreement with this plan of care. Consent (verbal) granted to MD. Herrera.
--- NOTE | 2018-02-22 15:40 | PN ---
[facility] CIWA - CIWA Score Nausea/Vomitin-No Nausea/No Vomiting Muscle Tremors: 4-Moderate,w/Arms Extend Anxiety: 4-Mod. Anxious/Guarded Agitation: 4-Moderately Restless Paroxysmal Sweats: 1-Minimal Palms Moist Orientation: 0-Oriented Tacttile Disturbances: 0-None Auditory Disturbances: 0-None Visual Disturbances: 0-None Headache: 0-None Present CIWA-Ar Total Score: 13 [facility] COWS - Scale Resting Pulse: 0= MS 80 or Below Sweatin= Chills/Flushing Restless Observation: 0= Sits Still Pupil Size: 0= Normal to Room Light Bone or Joint Aches: 4=Acute Joint/Muscle Pain Runny Nose/ Eye Tearin= Nasal Congestion GI Upset > 30mins: 2= Nausea/Diarrhea Tremor Observation of Outstretched Hands: 2= Slight Tremor Visible Yawning Observation: 1= 1-2x During Session Anxiety or Irritability: 2=Irritable/Anxious Goose Flesh Skin: 0=Smooth Skin COWS Score: 13 [facility] Progress Note (SOAP) Subjective: ANXIETY, DIARRHEA, HEADACHE, STOMACH CRAMPS. Objective: 02/22/18 15:36 Vital Signs 02/22/18 10:47 Temperature 97.1 F L Pulse Rate 80 Respiratory 18 Rate Blood Pressure 104/74 Laboratory Tests 02/22/18 02/22/18 02/22/18 08:00 08:00 08:00 WBC 3.9 L RBC 3.91 Hgb 11.2 Hct 35.1 MCV 89.9 MCH 28.7 MCHC 32.0 RDW 13.8 Plt Count 205 MPV 9.4 Sodium 140 Potassium 4.5 Chloride 106 Carbon Dioxide 27 Anion Gap 8 BUN 18 Creatinine 0.9 Creat Clearance w eGFR > 60 Random Glucose 73 L Calcium 8.7 Total Bilirubin 0.4 AST 22 ALT 19 Alkaline Phosphatase 66 Total Protein 6.1 L Albumin 3.4 RPR Titer Nonreactive Assessment: 02/22/18 15:36 WITHDRAWAL SX Plan: CONTINUE DETOX IMODIUM PRN FOR DIARRHEA TYLENOL PRN FOR HEADACHE
[2018-02-22] MEDS ORDERED: CYCLOBENZAPRINE HCL 10 MG TABLET (FP) PO PRN (15:42)
[2018-02-22] MEDS: MELATONIN 5 MG TABLETS PO PRN (22:22)
[2018-02-22] MEDS: THIAMINE HCL 100 MG TABLET (FP) PO SCH (22:22)
[2018-02-23] MEDS: diazePAM 5 MG TABLET PO PRN ×2 (05:10→10:26)
[2018-02-23] MEDS ORDERED: METHADONE HCL 5 MG TABLET (FOR DETOX USE ONLY) PO ONE (10:00)
[2018-02-23] MEDS: valACYclovir HCL 500 MG TABLET (FP) PO SCH (10:22)
[2018-02-23] MEDS: PANTOPRAZOLE 20 MG TABLET (FP) PO SCH (10:22)
[2018-02-23] MEDS: CHOLECALCIFEROL (VITAMIN D3) 1,000 UNIT TABLET (FP) PO SCH (10:22)
[2018-02-23] MEDS: ESCITALOPRAM OXALATE 10 MG TABLET (FP) PO SCH (10:22)
[2018-02-23] MEDS: PRENATAL VITAMINS W/ FOLIC ACID TABLET (FP) PO SCH (10:22)
[2018-02-23] MEDS: amLODIPine BESYLATE 10 MG TABLET (FP) PO SCH (10:22)
[2018-02-23] MEDS: BACITRACIN 0.9 GM PACKET TP SCH ×2 (10:23→22:16)
[2018-02-23] MEDS: ARIPiprazole 5 MG TABLET (FP) PO SCH (10:23)
--- NOTE | 2018-02-23 17:43 | PN ---
[facility] COWS - Scale Resting Pulse: 0= SD 80 or Below Sweatin= Chills/Flushing Restless Observation: 3= Extraneous Movement Pupil Size: 1= Pupils >than Normal Bone or Joint Aches: 2= Severe Diffuse Aches Runny Nose/ Eye Tearin= Runny Nose/Eyes GI Upset > 30mins: 1= Stomach Cramp Tremor Observation of Outstretched Hands: 2= Slight Tremor Visible Yawning Observation: 0= None Anxiety or Irritability: 2=Irritable/Anxious Goose Flesh Skin: 0=Smooth Skin COWS Score: 14 [facility] Progress Note (SOAP) Subjective: Stomach ache, diarrhea, headache, sweating, tremor, interrupted sleep Objective: 02/23/18 17:42 Last Vital Signs Temp Pulse Resp BP Pulse Ox 97.4 F L 60 18 128/80 02/23/18 11:30 02/23/18 11:30 02/23/18 11:30 02/23/18 11:30 Laboratory Tests 02/22/18 02/22/18 02/22/18 08:00 08:00 08:00 WBC 3.9 L RBC 3.91 Hgb 11.2 Hct 35.1 MCV 89.9 MCH 28.7 MCHC 32.0 RDW 13.8 Plt Count 205 MPV 9.4 Sodium 140 Potassium 4.5 Chloride 106 Carbon Dioxide 27 Anion Gap 8 BUN 18 Creatinine 0.9 Creat Clearance w eGFR > 60 Random Glucose 73 L Calcium 8.7 Total Bilirubin 0.4 AST 22 ALT 19 Alkaline Phosphatase 66 Total Protein 6.1 L Albumin 3.4 RPR Titer Nonreactive Labs reviewed Assessment: 02/23/18 17:42 Withdrawal symptoms Plan: Continue detox Encouraged PO water intake
[2018-02-23] MEDS: THIAMINE HCL 100 MG TABLET (FP) PO SCH (22:16)
[2018-02-24] MEDS: diazePAM 5 MG TABLET PO PRN ×2 (03:29→07:31)
[2018-02-24] MEDS: amLODIPine BESYLATE 10 MG TABLET (FP) PO SCH (09:48)
[2018-02-24] MEDS: PANTOPRAZOLE 20 MG TABLET (FP) PO SCH (09:48)
[2018-02-24] MEDS: PRENATAL VITAMINS W/ FOLIC ACID TABLET (FP) PO SCH (09:48)
[2018-02-24] MEDS: valACYclovir HCL 500 MG TABLET (FP) PO SCH (09:48)
[2018-02-24] MEDS: ESCITALOPRAM OXALATE 10 MG TABLET (FP) PO SCH (09:48)
[2018-02-24] MEDS: CHOLECALCIFEROL (VITAMIN D3) 1,000 UNIT TABLET (FP) PO SCH (09:49)
[2018-02-24] MEDS: BACITRACIN 0.9 GM PACKET TP SCH ×2 (09:49→22:16)
[2018-02-24] MEDS: ARIPiprazole 5 MG TABLET (FP) PO SCH (09:49)
[2018-02-24] MEDS ORDERED: METHADONE HCL 5 MG TABLET (FOR DETOX USE ONLY) PO ONE (10:00)
[2018-02-24] MEDS ORDERED: LOSARTAN POTASSIUM 50 MG TABLET (FP) PO SCH (10:00)
[2018-02-24] MEDS: LOSARTAN POTASSIUM 50 MG TABLET (FP) PO SCH (12:02)
--- NOTE | 2018-02-24 13:49 | PN ---
[facility] Progress Note (SOAP) Subjective: body aches tremor joints pain sweat restlessness dry skin hemorroid discomfort long history of hypertension treated with losartan 50 mg last filled 30 days supply on 02/19/18 Objective: 02/24/18 13:48 Vital Signs Temperature 97.1 F L 02/24/18 13:25 Pulse Rate 70 02/24/18 13:25 Respiratory Rate 18 02/24/18 13:25 Blood Pressure 132/97 02/24/18 13:25 O2 Sat by Pulse Oximetry (%) Laboratory Last Values WBC 3.9 K/mm3 (4.0-10.0) L 02/22/18 08:00 RBC 3.91 M/mm3 (3.60-5.2) 02/22/18 08:00 Hgb 11.2 GM/dL (10.7-15.3) 02/22/18 08:00 Hct 35.1 % (32.4-45.2) 02/22/18 08:00 MCV 89.9 fl (80-96) 02/22/18 08:00 MCH 28.7 pg (25.7-33.7) 02/22/18 08:00 MCHC 32.0 g/dl (32.0-36.0) 02/22/18 08:00 RDW 13.8 % (11.6-15.6) 02/22/18 08:00 Plt Count 205 K/MM3 (134-434) 02/22/18 08:00 MPV 9.4 fl (7.5-11.1) 02/22/18 08:00 Sodium 140 mmol/L (136-145) 02/22/18 08:00 Potassium 4.5 mmol/L (3.5-5.1) 02/22/18 08:00 Chloride 106 mmol/L (98-107) 02/22/18 08:00 Carbon Dioxide 27 mmol/L (21-32) 02/22/18 08:00 Anion Gap 8 MMOL/L (8-16) 02/22/18 08:00 BUN 18 mg/dL (7-18) 02/22/18 08:00 Creatinine 0.9 mg/dL (0.55-1.3) 02/22/18 08:00 Creat Clearance w eGFR > 60 (>60) 02/22/18 08:00 Random Glucose 73 mg/dL (74-106) L 02/22/18 08:00 Calcium 8.7 mg/dL (8.5-10.1) 02/22/18 08:00 Total Bilirubin 0.4 mg/dL (0.2-1) 02/22/18 08:00 AST 22 U/L (15-37) 02/22/18 08:00 ALT 19 U/L (13-61) 02/22/18 08:00 Alkaline Phosphatase 66 U/L (45-117) 02/22/18 08:00 Total Protein 6.1 g/dl (6.4-8.2) L 02/22/18 08:00 Albumin 3.4 g/dl (3.4-5.0) 02/22/18 08:00 RPR Titer Nonreactive (NONREACTIVE) 02/22/18 08:00 lab noted Assessment: 02/24/18 13:49 withdrawal sx 02/24/18 13:51 hypertension 02/24/18 13:51 Plan: continue detox losartan 50 mg po daily
[2018-02-24] MEDS: BENZOCAINE 28 GM HEMORRHOIDAL OINTMENT PR SCH ×2 (15:44→22:16)
[2018-02-24] MEDS: MINERAL OIL/PETROLAT/WATER TOPICAL CREAM 113 GM JAR TP SCH (15:44)
[2018-02-24] MEDS: hydrOXYzine PAMOATE 25 MG CAPSULE (FP) PO PRN ×2 (19:17→22:17)
[2018-02-24] MEDS: THIAMINE HCL 100 MG TABLET (FP) PO SCH (22:17)
[2018-02-25] MEDS ORDERED: METHADONE HCL 10 MG TABLET (FOR DETOX USE ONLY) PO ONE (10:00)
[2018-02-25] MEDS: BENZOCAINE 28 GM HEMORRHOIDAL OINTMENT PR SCH ×2 (10:32→22:25)
[2018-02-25] MEDS: PANTOPRAZOLE 20 MG TABLET (FP) PO SCH (10:33)
[2018-02-25] MEDS: valACYclovir HCL 500 MG TABLET (FP) PO SCH (10:33)
[2018-02-25] MEDS: ESCITALOPRAM OXALATE 10 MG TABLET (FP) PO SCH (10:33)
[2018-02-25] MEDS: PRENATAL VITAMINS W/ FOLIC ACID TABLET (FP) PO SCH (10:33)
[2018-02-25] MEDS: BACITRACIN 0.9 GM PACKET TP SCH ×2 (10:34→22:24)
--- NOTE | 2018-02-25 10:34 | PN ---
[facility] Progress Note (SOAP) Subjective: patient requests zantec for GERD feeling better less body aches little tremor less sweating sleep better at night Objective: 02/25/18 10:35 Vital Signs Temperature 98.2 F 02/25/18 09:28 Pulse Rate 77 02/25/18 09:28 Respiratory Rate 18 02/25/18 09:28 Blood Pressure 101/59 L 02/25/18 09:28 O2 Sat by Pulse Oximetry (%) Laboratory Last Values WBC 3.9 K/mm3 (4.0-10.0) L 02/22/18 08:00 RBC 3.91 M/mm3 (3.60-5.2) 02/22/18 08:00 Hgb 11.2 GM/dL (10.7-15.3) 02/22/18 08:00 Hct 35.1 % (32.4-45.2) 02/22/18 08:00 MCV 89.9 fl (80-96) 02/22/18 08:00 MCH 28.7 pg (25.7-33.7) 02/22/18 08:00 MCHC 32.0 g/dl (32.0-36.0) 02/22/18 08:00 RDW 13.8 % (11.6-15.6) 02/22/18 08:00 Plt Count 205 K/MM3 (134-434) 02/22/18 08:00 MPV 9.4 fl (7.5-11.1) 02/22/18 08:00 Sodium 140 mmol/L (136-145) 02/22/18 08:00 Potassium 4.5 mmol/L (3.5-5.1) 02/22/18 08:00 Chloride 106 mmol/L (98-107) 02/22/18 08:00 Carbon Dioxide 27 mmol/L (21-32) 02/22/18 08:00 Anion Gap 8 MMOL/L (8-16) 02/22/18 08:00 BUN 18 mg/dL (7-18) 02/22/18 08:00 Creatinine 0.9 mg/dL (0.55-1.3) 02/22/18 08:00 Creat Clearance w eGFR > 60 (>60) 02/22/18 08:00 Random Glucose 73 mg/dL (74-106) L 02/22/18 08:00 Calcium 8.7 mg/dL (8.5-10.1) 02/22/18 08:00 Total Bilirubin 0.4 mg/dL (0.2-1) 02/22/18 08:00 AST 22 U/L (15-37) 02/22/18 08:00 ALT 19 U/L (13-61) 02/22/18 08:00 Alkaline Phosphatase 66 U/L (45-117) 02/22/18 08:00 Total Protein 6.1 g/dl (6.4-8.2) L 02/22/18 08:00 Albumin 3.4 g/dl (3.4-5.0) 02/22/18 08:00 RPR Titer Nonreactive (NONREACTIVE) 02/22/18 08:00 lab noted Assessment: 02/25/18 10:35 mild withdrawal sx Plan: continue detox
[2018-02-25] MEDS: ARIPiprazole 5 MG TABLET (FP) PO SCH (10:35)
[2018-02-25] MEDS: LOSARTAN POTASSIUM 50 MG TABLET (FP) PO SCH (10:41)
[2018-02-25] MEDS: CHOLECALCIFEROL (VITAMIN D3) 1,000 UNIT TABLET (FP) PO SCH (10:42)
[2018-02-25] MEDS: MINERAL OIL/PETROLAT/WATER TOPICAL CREAM 113 GM JAR TP SCH (11:20)
[2018-02-25] MEDS: RANITIDINE HCL 150 MG TABLET (FP) PO SCH (22:24)
[2018-02-25] MEDS: THIAMINE HCL 100 MG TABLET (FP) PO SCH (22:24)
[2018-02-25] MEDS: MELATONIN 5 MG TABLETS PO PRN (22:26)
[2018-02-26] MEDS ORDERED: METHADONE HCL 5 MG TABLET (FOR DETOX USE ONLY) PO ONE (06:00)
[2018-02-26 06:28] VITALS: BP 141/86; PULSE 57; TEMP 97.7
[2018-02-26] MEDS: PRENATAL VITAMINS W/ FOLIC ACID TABLET (FP) PO SCH (09:01)
[2018-02-26] MEDS: ARIPiprazole 5 MG TABLET (FP) PO SCH (09:01)
[2018-02-26] MEDS: MINERAL OIL/PETROLAT/WATER TOPICAL CREAM 113 GM JAR TP SCH (09:01)
[2018-02-26] MEDS: ESCITALOPRAM OXALATE 10 MG TABLET (FP) PO SCH (09:01)
[2018-02-26] MEDS: BENZOCAINE 28 GM HEMORRHOIDAL OINTMENT PR SCH (09:01)
[2018-02-26] MEDS: LOSARTAN POTASSIUM 50 MG TABLET (FP) PO SCH (09:01)
[2018-02-26] MEDS: BACITRACIN 0.9 GM PACKET TP SCH (09:01)
[2018-02-26] MEDS: CHOLECALCIFEROL (VITAMIN D3) 1,000 UNIT TABLET (FP) PO SCH (09:02)
[2018-02-26] MEDS: RANITIDINE HCL 150 MG TABLET (FP) PO SCH (09:02)
[2018-02-26] MEDS: valACYclovir HCL 500 MG TABLET (FP) PO SCH (09:02)
--- NOTE | 2018-02-26 12:17 | DS ---
[facility] Detox Discharge Summary Admission Date: 02/21/18 Discharge Date: 02/26/18 - History Present History: Alcohol Dependence Additional Comments: 57 years old female admitted on 02/21/18 for alcohol withdrawal stabilization completed alcohol detox regimen [facility] Pertinent Past History: patient reported that [facility] is her primary care [facility] services provide medical mental and addiction services - Physical Exam Results Vital Signs: Vital Signs Temperature 97.7 F 02/26/18 06:27 Pulse Rate 57 L 02/26/18 06:27 Respiratory Rate 18 02/26/18 06:27 Blood Pressure 141/86 02/26/18 06:27 O2 Sat by Pulse Oximetry (%) Pertinent Admission Physical Exam Findings: alcohol withdrawal sx Vital Signs Temperature 97.7 F 02/26/18 06:27 Pulse Rate 57 L 02/26/18 06:27 Respiratory Rate 18 02/26/18 06:27 Blood Pressure 141/86 02/26/18 06:27 O2 Sat by Pulse Oximetry (%) Laboratory Last Values WBC 3.9 K/mm3 (4.0-10.0) L 02/22/18 08:00 RBC 3.91 M/mm3 (3.60-5.2) 02/22/18 08:00 Hgb 11.2 GM/dL (10.7-15.3) 02/22/18 08:00 Hct 35.1 % (32.4-45.2) 02/22/18 08:00 MCV 89.9 fl (80-96) 02/22/18 08:00 MCH 28.7 pg (25.7-33.7) 02/22/18 08:00 MCHC 32.0 g/dl (32.0-36.0) 02/22/18 08:00 RDW 13.8 % (11.6-15.6) 02/22/18 08:00 Plt Count 205 K/MM3 (134-434) 02/22/18 08:00 MPV 9.4 fl (7.5-11.1) 02/22/18 08:00 Sodium 140 mmol/L (136-145) 02/22/18 08:00 Potassium 4.5 mmol/L (3.5-5.1) 02/22/18 08:00 Chloride 106 mmol/L (98-107) 02/22/18 08:00 Carbon Dioxide 27 mmol/L (21-32) 02/22/18 08:00 Anion Gap 8 MMOL/L (8-16) 02/22/18 08:00 BUN 18 mg/dL (7-18) 02/22/18 08:00 Creatinine 0.9 mg/dL (0.55-1.3) 02/22/18 08:00 Creat Clearance w eGFR > 60 (>60) 02/22/18 08:00 Random Glucose 73 mg/dL (74-106) L 02/22/18 08:00 Calcium 8.7 mg/dL (8.5-10.1) 02/22/18 08:00 Total Bilirubin 0.4 mg/dL (0.2-1) 02/22/18 08:00 AST 22 U/L (15-37) 02/22/18 08:00 ALT 19 U/L (13-61) 02/22/18 08:00 Alkaline Phosphatase 66 U/L (45-117) 02/22/18 08:00 Total Protein 6.1 g/dl (6.4-8.2) L 02/22/18 08:00 Albumin 3.4 g/dl (3.4-5.0) 02/22/18 08:00 RPR Titer Nonreactive (NONREACTIVE) 02/22/18 08:00 lab noted - Treatment Hospital Course: Detox Protocol Followed, Detoxed Safely, Responded well, Discharged Condition Good, Rehab Referral Accepted Patient has Accepted a Rehab Referral to: [facility] - Medication Discharge Medications: Ambulatory Orders Amlodipine Besylate 10 mg PO DAILY 03/07/17 Cholecalciferol (Vitamin D3) [Vitamin D3 -] 1,000 unit PO DAILY 03/07/17 Omeprazole 20 mg PO DAILY PRN 03/07/17 Valacyclovir HCl [Valtrex -] 500 mg PO DAILY 03/07/17 Losartan Potassium [Cozaar -] 50 mg PO DAILY #14 tablet 02/26/18 - Diagnosis (1) Alcohol dependence with uncomplicated withdrawal Status: Acute (2) Weight loss Status: Acute (3) Essential hypertension Status: Chronic (4) Substance induced mood disorder Status: Suspected (5) GERD (gastroesophageal reflux disease) Status: Chronic - AMA Did Patient Leave Against Medical Advice: No
--- NOTE | 2018-04-15 11:43 | EKG ---
Test Reason : Blood Pressure : / mmHG Vent. Rate : 052 BPM Atrial Rate : 052 BPM P-R Int : 190 ms QRS Dur : 088 ms QT Int : 496 ms P-R-T Axes : 063 057 071 degrees QTc Int : 461 ms SINUS BRADYCARDIA NONSPECIFIC T WAVE ABNORMALITY PROLONGED QT ABNORMAL ECG WHEN COMPARED WITH ECG OF 07-MAR-2017 14:06, NONSPECIFIC T WAVE ABNORMALITY NO LONGER EVIDENT IN INFERIOR LEADS Confirmed by Joe Hancock MD ([id number]) on 04/15/2018 11:42:24 AM Referred By: Confirmed By:Joe Hancock MD
== END 2018-02-26 09:01 | disposition home or self-care (01) | DRG 773 ==
LOC: YASAS 11:00 → Y3N 15:32
PROC: HZ2ZZZZ Detoxification Services for Substance Abuse Treatment (ICD-10-PCS; principal; 2018-02-21)
DX: F11.23 Opioid dependence with withdrawal (principal); F10.230 Alcohol dependence with withdrawal, uncomplicated; F19.24 Other psychoactive substance dependence with psychoactive substance-induced mood disorder; F41.8 Other specified anxiety disorders; F32.9 Major depressive disorder, single episode, unspecified; F39 Unspecified mood [affective] disorder; I10 Essential (primary) hypertension; K21.9 Gastro-esophageal reflux disease without esophagitis; E86.0 Dehydration; E55.9 Vitamin D deficiency, unspecified; G47.00 Insomnia, unspecified; R63.4 Abnormal weight loss; Z68.24 Body mass index [BMI] 24.0-24.9, adult; Z86.19 Personal history of other infectious and parasitic diseases; Z91.5 Personal history of self-harm
CPT/HCPCS: 36415; 80053; 85027; 86593; 93005; 93010

== ENCOUNTER 2018-06-30 11:27 | Inpatient (IN) | payer OTHER ==
--- NOTE | 2018-06-30 13:31 | HP ---
COWS - Scale Resting Pulse: 0= [place] 80 or Below Sweatin= Chills/Flushing Restless Observation: 3= Extraneous Movement Pupil Size: 1= Pupils >than Normal Bone or Joint Aches: 2= Severe Diffuse Aches Runny Nose/ Eye Tearin= Runny Nose/Eyes GI Upset > 30mins: 2= Nausea/Diarrhea Tremor Observation: 2= Slight Tremor Visible Yawning Observation: 1= 1-2x During Session Anxiety or Irritability: 2=Irritable/Anxious Goose Flesh Skin: 0=Smooth Skin COWS Score: 16 CIWA Score - Admission Criteria OASAS Guidelines: Admission for Medically Managed Detox: Requires at least one of the followin. CIWA greater than 12 2. Seizures within the past 24 hours 3. Delirium tremens within the past 24 hours 4. Hallucinations within the past 24 hours 5. Acute intervention needed for co occurring medical disorder 6. Acute intervention needed for co occurring psychiatric disorder 7. Severe withdrawal that cannot be handled at a lower level of care (continued vomiting, continued diarrhea, abnormal vital signs) requiring intravenous medication and/or fluids 8. Admission ROS S - HPI Chief Complaint: i need help to stop using percocet Allergies/Adverse Reactions: Allergies Allergy/AdvReac Type Severity Reaction Status Date / Time No Known Allergies Allergy Verified 06/30/18 12:01 History of Present Illness: this 58 years old female with percocet dependence,seeking detox,withdrawal symptom, multiple admissions in detox,last 02/21/18 to 02/23/18 keep relapsing hypertension on md riding bicycle anxiety,depression,insomnia history of left foot surgery in 2016,with deformity Exam Limitations: No Limitations - Ebola screening Have you traveled outside of the country in the last 21 days: No Have you had contact with anyone from an Ebola affected area: No Do you have a fever: No - Review of Systems Constitutional: No Symptoms Reported, Chills, Changes in sleep EENT: reports: Tearing, Nose Congestion Respiratory: reports: No Symptoms reported Cardiac: reports: No Symptoms Reported GI: reports: Diarrhea, Nausea, Vomiting : reports: No Symptoms Reported Musculoskeletal: reports: Back Pain, Muscle Pain Integumentary: reports: Dryness Neuro: reports: Headache, Tremors Endocrine: reports: No Symptoms Reported Hematology: reports: No Symptoms Reported Psychiatric: reports: No Sypmtoms Reported, Judgement Intact, Mood/Affect Appropiate, Orientated x3, Anxious, other (insomnia) Other Systems: Reviewed and Negative Patient History - Patient Medical History Hx Anemia: No Hx Asthma: No Hx Chronic Obstructive Pulmonary Disease (COPD): No Hx Cancer: No Hx Cardiac Disorders: No Hx Congestive Heart Failure: No Hx Hypertension: Yes (on meds) Hx Hypercholesterolemia: No Hx Pacemaker: No HX Cerebrovascular Accident: No Hx Seizures: No Hx Dementia: No Hx Diabetes: No Hx Gastrointestinal Disorders: No Hx Liver Disease: No Hx Genitourinary Disorders: No Hx Sexually Transmitted Disorders: Yes (COLD SORE) Hx Renal Disease (ESRD): No Hx Thyroid Disease: No Hx Human Immunodeficiency Virus (HIV): No (last 2007 negative) Hx Hepatitis C: No Hx Depression: Yes (THERAPY ONCE A MONTH) Hx Suicide Attempt: Yes (cuttter at age 38) Hx Bipolar Disorder: No Hx Schizophrenia: No Other Medical History: no suicidal,no homicidal - Patient Surgical History Past Surgical History: No Hx Neurologic Surgery: No Hx Cataract Extraction: No Hx Cardiac Surgery: No Hx Lung Surgery: No Hx Breast Surgery: No Hx Breast Biopsy: No Hx Abdominal Surgery: No Hx Appendectomy: No Hx Cholecystectomy: No Hx Genitourinary Surgery: No Hx Section: No Hx Orthopedic Surgery: No Other Surgical History: SURGERY FOR GANGLiON CYST OF RIGHT HAND in 2017 Anesthesia Reaction: No - PPD History Previous Implant?: Yes Implanted On Prior [facility] Admission?: Yes Date: 03/09/17 PPD to be Administered?: Yes - Smoking Cessation Smoking history: Never smoked Have you smoked in the past 12 months: No Hx Chewing Tobacco Use: No - Substance & Tx. History Hx Alcohol Use: No Hx Substance Use: Yes Substance Use Type: Opiates Hx Substance Use Treatment: Yes ([facility] 02/21/18 to 02/26/18) - Substances abused Other Other (specify): percocet Substance route: Oral Frequency: Daily Amount used: (15) 10-325mg Age of first use: 56 Date of last use: 06/30/18 Family Disease History - Family Disease History Family Disease History: Other: Mother (alcoholic) Admission Physical Exam BHS - Vital Signs Vital Signs: Vital Signs - 24 hr 06/30/18 12:01 Temperature 97.1 F L Pulse Rate 56 L Respiratory 18 Rate Blood Pressure 140/85 - Physical General Appearance: Yes: Moderate Distress, Tremorous, Irritable, Sweating, Anxious HEENTM: Yes: Normal ENT Inspection, OSVALDO, Pharynx Normal Respiratory: Yes: Lungs Clear, Normal Breath Sounds, No Respiratory Distress Neck: Yes: Within Normal Limits, Supple, Trachea in good position Breast: Yes: Breast Exam Deferred Cardiology: Yes: Bradycardia Abdominal: Yes: Normal Bowel Sounds, Non Tender, Soft Genitourinary: Yes: Within Normal Limits Back: Yes: Muscle Spasm Musculoskeletal: Yes: Back pain, Muscle Pain Extremities: Yes: Tremors, Other (scar of right hand) Neurological: Yes: case management director II-XII NML intact, Fully Oriented, Alert, Motor Strength 5/5 Integumentary: Yes: Dry Lymphatic: Yes: Within Normal Limits - Diagnostic (1) Opioid dependence with withdrawal Current Visit: No Status: Acute (2) Anxiety and depression Current Visit: No Status: Acute (3) Vitamin D deficiency Current Visit: No Status: Acute (4) Essential hypertension Current Visit: No Status: Chronic (5) GERD (gastroesophageal reflux disease) Current Visit: No Status: Chronic (6) Insomnia Current Visit: No Status: Chronic Cleared for Admission [facility] - Detox or Rehab [facility] Level of Care: Medically Managed Detox Regimen/Protocol: Methadone Breathalyzer - Breathalyzer Breathalyzer: 0 Urine Drug Screen - Test Device Lot number: [id number] Expiration date: 03/20/20 - Control Is test valid?: Yes - Results Drug screen NEGATIVE: No Urine drug screen results: OXY-Oxycodone Inpatient Rehab Admission - Rehab Decision to Admit Inpatient rehab admission?: No
[2018-06-30] MEDS ORDERED: IBUPROFEN 400 MG TABLET (FP) PO PRN (13:47)
[2018-06-30] MEDS ORDERED: MAGNESIUM CITRATE 300 ML BOTTLE PO PRN (13:47)
[2018-06-30] MEDS ORDERED: ACETAMINOPHEN 325 MG TABLET (FP) PO PRN ×2 (13:47)
[2018-06-30] MEDS ORDERED: MENTHOL/PHENOL 1 EACH UD MM PRN (13:47)
[2018-06-30] MEDS ORDERED: MAG HYDROX/AL HYDROX/SIMETH 30 ML UNIT-DOSE CUP PO PRN (13:47)
[2018-06-30] MEDS ORDERED: MAGNESIUM HYDROX 2400MG/30ML ORAL SUSPENSION 30 ML CUP PO PRN (13:47)
[2018-06-30] MEDS ORDERED: METHADONE HCL 10 MG TABLET (FOR DETOX USE ONLY) PO ONE ×2 (14:30→23:00)
[2018-06-30 14:34] VITALS: BMI 24.7
[2018-06-30] MEDS: diazePAM 5 MG TABLET PO PRN ×2 (14:51→22:10)
[2018-06-30] MEDS: hydrOXYzine PAMOATE 25 MG CAPSULE (FP) PO PRN (19:47)
[2018-06-30] MEDS: THIAMINE HCL 100 MG TABLET (FP) PO SCH (22:08)
[2018-06-30] MEDS: cloNIDine HCL 0.1 MG TABLET PO PRN (22:10)
[2018-06-30] MEDS: LOSARTAN POTASSIUM 25 MG TABLET PO SCH (22:43)
[2018-07-01 00:53] LABS: URINE APPEARANCE CLEAR; URINE BILIRUBIN NEGATIVE (NEGATIVE); URINE COLOR YELLOW; URINE GLUCOSE (UA) NEGATIVE (NEGATIVE); URINE KETONE NEGATIVE (NEGATIVE); URINE LEUK ESTERASE NEGATIVE (NEGATIVE); URINE NITRITE NEGATIVE (NEGATIVE); URINE PROTEIN NEGATIVE (NEGATIVE); URINE UROBILINOGEN 0.2 mg/dL (0.2-1.0)
[2018-07-01] MEDS: diazePAM 5 MG TABLET PO PRN ×3 (07:44→22:32)
[2018-07-01] MEDS ORDERED: METHADONE HCL 10 MG TABLET (FOR DETOX USE ONLY) PO ONE (10:00)
[2018-07-01] MEDS: CHOLECALCIFEROL (VITAMIN D3) 1,000 UNIT TABLET (FP) PO SCH (10:17)
[2018-07-01] MEDS: PANTOPRAZOLE 20 MG TABLET (FP) PO SCH (10:17)
[2018-07-01] MEDS: amLODIPine BESYLATE 10 MG TABLET (FP) PO SCH (10:17)
[2018-07-01] MEDS: PRENATAL VITAMINS W/ FOLIC ACID TABLET (FP) PO SCH (10:17)
--- NOTE | 2018-07-01 11:25 | PN ---
BHS COWS - Scale Resting Pulse: 0= [place] 80 or Below Sweatin=Flushed/Facial Moisture Restless Observation: 1= Difficult to Sit Still Pupil Size: 0= Normal to Room Light Bone or Joint Aches: 2= Severe Diffuse Aches Runny Nose/ Eye Tearin= Runny Nose/Eyes GI Upset > 30mins: 1= Stomach Cramp Tremor Observation of Outstretched Hands: 2= Slight Tremor Visible Yawning Observation: 2= >3x During Session Anxiety or Irritability: 2=Irritable/Anxious Goose Flesh Skin: 0=Smooth Skin COWS Score: 14 BHS Progress Note (SOAP) Subjective: agitation sweats shakes interrupted sleep body aches interrupted sleep low back pain dry skin Objective: 07/01/18 11:22 Vital Signs Temperature 96.8 F L 07/01/18 09:38 Pulse Rate 55 L 07/01/18 09:38 Respiratory Rate 18 07/01/18 09:38 Blood Pressure 111/73 07/01/18 09:38 O2 Sat by Pulse Oximetry (%) Laboratory Tests 06/30/18 14:38 Urine Color Yellow Urine Appearance Clear Urine pH 7.0 D Ur Specific [place] 1.013 Urine Protein Negative Urine Glucose (UA) Negative Urine Ketones Negative Urine Blood Negative Urine Nitrite Negative Urine Bilirubin Negative Urine Urobilinogen 0.2 Ur Leukocyte Esterase Negative labs pending aaox3 ambulating no acute distress Assessment: 07/01/18 11:24 withdrawal sx Plan: continue detox increase fluids
[2018-07-01 12:26] LABS: HEMATOCRIT 40.6 % (32.4-45.2); HEMOGLOBIN 13.3 GM/dL (10.7-15.3); MCH 29.5 pg (25.7-33.7); MCHC 32.7 g/dl (32.0-36.0); MEAN PLT VOLUME 10.1 fl (7.5-11.1); PLATELET COUNT 238 K/MM3 (134-434); RBC 4.51 M/mm3 (3.60-5.2); RDW 14.5 % (11.6-15.6); WHITE BLOOD COUNT 5.2 K/mm3 (4.0-10.0)
[2018-07-01 12:36] LABS: ALBUMIN 4.2 g/dl (3.4-5.0); BILIRUBIN,TOTAL 0.4 mg/dL (0.2-1); CALCIUM 9.6 mg/dL (8.5-10.1); CREATININE 0.7 mg/dL (0.55-1.3); POTASSIUM 4.1 mmol/L (3.5-5.1); TOT PROT 7.5 g/dl (6.4-8.2)
[2018-07-01] MEDS: AMMONIUM LACTATE 12% LOTION 225 GM BOTTLE TP SCH ×2 (15:17→22:31)
[2018-07-01] MEDS: LOSARTAN POTASSIUM 25 MG TABLET PO SCH (22:32)
[2018-07-01] MEDS: MELATONIN 5 MG TABLETS PO PRN (22:33)
[2018-07-01] MEDS: THIAMINE HCL 100 MG TABLET (FP) PO SCH (22:33)
[2018-07-02] MEDS: diazePAM 5 MG TABLET PO PRN ×3 (02:34→22:17)
[2018-07-02] MEDS ORDERED: COLLOIDAL OATMEAL 1 BAR EACH TP PRN (08:43)
--- NOTE | 2018-07-02 09:20 | PN ---
BHS COWS - Scale Resting Pulse: 0= [place] 80 or Below Sweatin=Flushed/Facial Moisture Restless Observation: 1= Difficult to Sit Still Pupil Size: 0= Normal to Room Light Bone or Joint Aches: 2= Severe Diffuse Aches Runny Nose/ Eye Tearin= None GI Upset > 30mins: 0= None Tremor Observation of Outstretched Hands: 2= Slight Tremor Visible Yawning Observation: 1= 1-2x During Session Anxiety or Irritability: 2=Irritable/Anxious Goose Flesh Skin: 0=Smooth Skin COWS Score: 10 BHS Progress Note (SOAP) Subjective: feeling a little better sweats anxiety mild shakes anxiety Objective: 07/02/18 09:21 Vital Signs Temperature 98.1 F 07/02/18 06:42 Pulse Rate 79 07/02/18 06:42 Respiratory Rate 16 07/02/18 06:42 Blood Pressure 130/92 07/02/18 06:42 O2 Sat by Pulse Oximetry (%) Laboratory Tests 06/30/18 06/30/18 07/01/18 12:39 14:38 06:00 WBC 5.2 RBC 4.51 Hgb 13.3 Hct 40.6 D MCV 90.0 MCH 29.5 MCHC 32.7 RDW 14.5 Plt Count 238 MPV 10.1 Sodium Potassium Chloride Carbon Dioxide Anion Gap BUN Creatinine Est GFR (CKD-EPI)AfAm Est GFR (CKD-EPI)NonAf Random Glucose Calcium Total Bilirubin AST ALT Alkaline Phosphatase Total Protein Albumin Urine Color Yellow Urine Appearance Clear Urine pH 7.0 D Ur Specific [place] 1.013 Urine Protein Negative Urine Glucose (UA) Negative Urine Ketones Negative Urine Blood Negative Urine Nitrite Negative Urine Bilirubin Negative Urine Urobilinogen 0.2 Ur Leukocyte Esterase Negative POC Urine HCG, Qual Negative RPR Titer 07/01/18 07/01/18 06:00 06:00 WBC RBC Hgb Hct MCV MCH MCHC RDW Plt Count MPV Sodium 138 Potassium 4.1 Chloride 104 Carbon Dioxide 28 Anion Gap 5 L BUN 9 Creatinine 0.7 Est GFR (CKD-EPI)AfAm 109.15 Est GFR (CKD-EPI)NonAf 94.17 Random Glucose 77 Calcium 9.6 Total Bilirubin 0.4 AST 28 ALT 24 Alkaline Phosphatase 86 Total Protein 7.5 Albumin 4.2 Urine Color Urine Appearance Urine pH Ur Specific [place] Urine Protein Urine Glucose (UA) Urine Ketones Urine Blood Urine Nitrite Urine Bilirubin Urine Urobilinogen Ur Leukocyte Esterase POC Urine HCG, Qual RPR Titer Nonreactive aaox3 ambulating no acute distress Assessment: 07/02/18 09:22 mild withdrawal sx Plan: continue detox increase fluids
[2018-07-02] MEDS ORDERED: METHADONE HCL 10 MG TABLET (FOR DETOX USE ONLY) PO ONE (10:00)
[2018-07-02] MEDS: PRENATAL VITAMINS W/ FOLIC ACID TABLET (FP) PO SCH (10:15)
[2018-07-02] MEDS: PANTOPRAZOLE 20 MG TABLET (FP) PO SCH (10:16)
[2018-07-02] MEDS: amLODIPine BESYLATE 10 MG TABLET (FP) PO SCH (10:16)
[2018-07-02] MEDS: AMMONIUM LACTATE 12% LOTION 225 GM BOTTLE TP SCH ×2 (10:17→22:58)
[2018-07-02] MEDS: CHOLECALCIFEROL (VITAMIN D3) 1,000 UNIT TABLET (FP) PO SCH (11:23)
[2018-07-02] MEDS ORDERED: WITCH HAZEL 50% (TUCKS) 40 PAD/JAR PAD TP PRN (11:30)
--- NOTE | 2018-07-02 18:47 | PN ---
BHS Progress Note Note: Pt states she has a recurrence of herpes infection. Pt has anogenital herpes- start of lesions- pt c/o burning, itching and also vaginal lesions. PE: intraoral under tongue with small open area rectal area- with no open areas noted a/p: h/o genital herpes with recurrence: pt does not tolerate valtrex- with side effects. Will start acyclovir 400mg TID X 5 days. d/w pt suppression of herpes recurrence with lower dose of meds.
[2018-07-02] MEDS: THIAMINE HCL 100 MG TABLET (FP) PO SCH (22:14)
[2018-07-02] MEDS: cloNIDine HCL 0.1 MG TABLET PO PRN (22:14)
[2018-07-02] MEDS: LOSARTAN POTASSIUM 25 MG TABLET PO SCH (22:14)
[2018-07-02] MEDS: ACYCLOVIR 400 MG TABLET PO SCH (22:15)
[2018-07-03] MEDS: ACYCLOVIR 400 MG TABLET PO SCH ×3 (06:06→21:55)
[2018-07-03] MEDS ORDERED: METHADONE HCL 5 MG TABLET (FOR DETOX USE ONLY) ONE (09:06)
[2018-07-03] MEDS ORDERED: METHADONE HCL 10 MG TABLET (FOR DETOX USE ONLY) ONE (09:07)
[2018-07-03] MEDS ORDERED: METHADONE HCL 10 MG TABLET (FOR DETOX USE ONLY) PO ONE (10:00)
[2018-07-03] MEDS ORDERED: METHADONE (DETOX) 10 MG, METHADONE (DETOX) 5 MG PO ONE (10:00)
[2018-07-03] MEDS: PRENATAL VITAMINS W/ FOLIC ACID TABLET (FP) PO SCH (10:06)
[2018-07-03] MEDS: amLODIPine BESYLATE 10 MG TABLET (FP) PO SCH (10:06)
[2018-07-03] MEDS: PANTOPRAZOLE 20 MG TABLET (FP) PO SCH (10:06)
[2018-07-03] MEDS: diazePAM 5 MG TABLET PO PRN ×3 (10:10→21:54)
[2018-07-03] MEDS: AMMONIUM LACTATE 12% LOTION 225 GM BOTTLE TP SCH ×2 (10:12→21:54)
[2018-07-03] MEDS: CHOLECALCIFEROL (VITAMIN D3) 1,000 UNIT TABLET (FP) PO SCH (10:13)
--- NOTE | 2018-07-03 11:50 | PN ---
BHS Progress Note (SOAP) Subjective: feeling much better sweats anxiety Objective: 07/03/18 11:49 Vital Signs Temperature 98.6 F 07/03/18 10:40 Pulse Rate 68 07/03/18 10:40 Respiratory Rate 18 07/03/18 10:40 Blood Pressure 109/68 07/03/18 10:40 O2 Sat by Pulse Oximetry (%) aaox3 ambulating no acute distress Assessment: 07/03/18 11:49 mild withdrawal sx Plan: continue detox increase fluids valium prn ordered
[2018-07-03] MEDS ORDERED: LOPERAMIDE HCL 2 MG CAPSULE PO PRN (15:30)
[2018-07-03] MEDS ORDERED: HYDROCORTISONE 1% TOPICAL CREAM 30 GM TUBE TP PRN (15:32)
[2018-07-03] MEDS: BISMUTH SUBSALICYLATE 262 MG/15 ML BTL PO PRN (17:32)
[2018-07-03] MEDS: LOSARTAN POTASSIUM 25 MG TABLET PO SCH (21:53)
[2018-07-03] MEDS: MELATONIN 5 MG TABLETS PO PRN (21:54)
[2018-07-03] MEDS: hydrOXYzine PAMOATE 25 MG CAPSULE (FP) PO PRN (21:55)
[2018-07-03] MEDS: THIAMINE HCL 100 MG TABLET (FP) PO SCH (21:55)
[2018-07-04] MEDS ORDERED: METHADONE HCL 5 MG TABLET (FOR DETOX USE ONLY) PO ONE (06:00)
[2018-07-04] MEDS: ACYCLOVIR 400 MG TABLET PO SCH ×3 (06:46→22:02)
[2018-07-04] MEDS ORDERED: METHADONE HCL 10 MG TABLET (FOR DETOX USE ONLY) PO ONE (10:00)
[2018-07-04] MEDS: amLODIPine BESYLATE 10 MG TABLET (FP) PO SCH (10:12)
[2018-07-04] MEDS: AMMONIUM LACTATE 12% LOTION 225 GM BOTTLE TP SCH ×2 (10:12→22:03)
[2018-07-04] MEDS: PANTOPRAZOLE 20 MG TABLET (FP) PO SCH (10:12)
[2018-07-04] MEDS: PRENATAL VITAMINS W/ FOLIC ACID TABLET (FP) PO SCH (10:13)
[2018-07-04] MEDS: CHOLECALCIFEROL (VITAMIN D3) 1,000 UNIT TABLET (FP) PO SCH (10:13)
--- NOTE | 2018-07-04 11:47 | PN ---
BHS Progress Note (SOAP) Subjective: feeling much better a little anxious Objective: 07/04/18 11:45 Vital Signs Temperature 97.9 F 07/04/18 09:18 Pulse Rate 70 07/04/18 09:18 Respiratory Rate 18 07/04/18 09:18 Blood Pressure 130/77 07/04/18 09:18 O2 Sat by Pulse Oximetry (%) aaox3 ambulating no acute distress Assessment: 07/04/18 11:45 mild withdrawal sx Plan: continue detox increase fluids d/c in am
[2018-07-04] MEDS: METHOCARBAMOL 500 MG TABLET PO PRN ×2 (15:08→22:03)
[2018-07-04] MEDS: hydrOXYzine PAMOATE 25 MG CAPSULE (FP) PO PRN ×2 (15:08→22:03)
[2018-07-04] MEDS: BISMUTH SUBSALICYLATE 262 MG/15 ML BTL PO PRN (18:50)
[2018-07-04] MEDS: THIAMINE HCL 100 MG TABLET (FP) PO SCH (22:01)
[2018-07-04] MEDS: LOSARTAN POTASSIUM 25 MG TABLET PO SCH (22:01)
[2018-07-04] MEDS: MELATONIN 5 MG TABLETS PO PRN (22:04)
[2018-07-05] MEDS: ACYCLOVIR 400 MG TABLET PO SCH (05:37)
[2018-07-05] MEDS ORDERED: METHADONE HCL 5 MG TABLET (FOR DETOX USE ONLY) PO ONE (06:00)
[2018-07-05 06:17] VITALS: BP 127/84; PULSE 68; TEMP 97.2
--- NOTE | 2018-07-05 13:03 | DS ---
[facility] Detox Discharge Summary Admission Date: 06/30/18 Discharge Date: 07/05/18 - History Present History: Opioid Dependence Additional Comments: Pt is medically cleared and is discharged today. As per social sciences department chair notes, " PT met with this Counselor for a Psychosocial Assessment and aftercare referral. PT declined aftercare referral; however, she was provided with an alternative agency info ([facility]) as well as 12 step meetings info in her area". Pt is AOX3, in no respiratory distress. Pertinent Past History: h/o HTN, opioid use disorder - Physical Exam Results Vital Signs: Vital Signs Temperature 97.2 F L 07/05/18 06:00 Pulse Rate 68 07/05/18 06:00 Respiratory Rate 18 07/05/18 06:00 Blood Pressure 127/84 07/05/18 06:00 O2 Sat by Pulse Oximetry (%) Lab Results WBC 5.2 K/mm3 (4.0-10.0) 07/01/18 06:00 RBC 4.51 M/mm3 (3.60-5.2) 07/01/18 06:00 Hgb 13.3 GM/dL (10.7-15.3) 07/01/18 06:00 Hct 40.6 % (32.4-45.2) D 07/01/18 06:00 MCV 90.0 fl (80-96) 07/01/18 06:00 MCHC 32.7 g/dl (32.0-36.0) 07/01/18 06:00 RDW 14.5 % (11.6-15.6) 07/01/18 06:00 Plt Count 238 K/MM3 (134-434) 07/01/18 06:00 Sodium 138 mmol/L (136-145) 07/01/18 06:00 Potassium 4.1 mmol/L (3.5-5.1) 07/01/18 06:00 Chloride 104 mmol/L (98-107) 07/01/18 06:00 Carbon Dioxide 28 mmol/L (21-32) 07/01/18 06:00 Anion Gap 5 MMOL/L (8-16) L 07/01/18 06:00 BUN 9 mg/dL (7-18) 07/01/18 06:00 Creatinine 0.7 mg/dL (0.55-1.3) 07/01/18 06:00 Random Glucose 77 mg/dL (74-106) 07/01/18 06:00 Calcium 9.6 mg/dL (8.5-10.1) 07/01/18 06:00 Labs noted. Pertinent Admission Physical Exam Findings: withdrawal symptoms - Treatment Hospital Course: Detox Protocol Followed, Detoxed Safely, Responded well, Discharged Condition Good - Medication Discharge Medications: Ambulatory Orders Amlodipine Besylate 10 mg PO DAILY 03/07/17 Cholecalciferol (Vitamin D3) [Vitamin D3 -] 1,000 unit PO DAILY 03/07/17 Omeprazole 20 mg PO DAILY PRN 03/07/17 Losartan Potassium [Cozaar -] 20 mg PO DAILY 06/30/18 - Diagnosis (1) Opioid dependence with withdrawal Status: Acute (2) Essential hypertension Status: Chronic (3) GERD (gastroesophageal reflux disease) Status: Chronic (4) History of herpes simplex infection Status: Chronic - AMA Did Patient Leave Against Medical Advice: No
== END 2018-07-05 08:43 | disposition home or self-care (01) | DRG 773 ==
LOC: YASAS 11:27 → Y6N 14:14
PROVIDERS: ADMIT Surgery; ATTEND Surgery
PROC: HZ2ZZZZ Detoxification Services for Substance Abuse Treatment (ICD-10-PCS; principal; 2018-06-30)
DX: F11.23 Opioid dependence with withdrawal (principal); F32.9 Major depressive disorder, single episode, unspecified; F41.8 Other specified anxiety disorders; I10 Essential (primary) hypertension; K21.9 Gastro-esophageal reflux disease without esophagitis; E55.9 Vitamin D deficiency, unspecified; G47.00 Insomnia, unspecified; Z86.19 Personal history of other infectious and parasitic diseases; Z91.5 Personal history of self-harm
CPT/HCPCS: 36415; 80053; 81003; 81025; 85027; 86593; J0735

== ENCOUNTER 2018-10-10 11:44 | Inpatient (IN) | payer OTHER ==
[2018-10-10 13:17] VITALS: BMI 25.0
--- NOTE | 2018-10-10 14:14 | HP ---
COWS - Scale Resting Pulse: 0= [place] 80 or Below Sweatin= Chills/Flushing Restless Observation: 1= Difficult to Sit Still Pupil Size: 1= Pupils >than Normal Bone or Joint Aches: 2= Severe Diffuse Aches Runny Nose/ Eye Tearin= Runny Nose/Eyes GI Upset > 30mins: 2= Nausea/Diarrhea Tremor Observation: 2= Slight Tremor Visible Yawning Observation: 2= >3x During Session Anxiety or Irritability: 2=Irritable/Anxious Goose Flesh Skin: 0=Smooth Skin COWS Score: 15 CIWA Score - Admission Criteria OASAS Guidelines: Admission for Medically Managed Detox: Requires at least one of the followin. CIWA greater than 12 2. Seizures within the past 24 hours 3. Delirium tremens within the past 24 hours 4. Hallucinations within the past 24 hours 5. Acute intervention needed for co occurring medical disorder 6. Acute intervention needed for co occurring psychiatric disorder 7. Severe withdrawal that cannot be handled at a lower level of care (continued vomiting, continued diarrhea, abnormal vital signs) requiring intravenous medication and/or fluids 8. 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,has bradycardia history of hypertension denied seizure,no syncope anxiety and depression no significant period of sobriety plan for outpatient program,and meeting Exam Limitations: No Limitations - Ebola screening Have you traveled outside of the country in the last 21 days: No (N) Have you had contact with anyone from an Ebola affected area: No Do you have a fever: No - Review of Systems Constitutional: Chills, Loss of Appetite, Night Sweats, Changes in sleep EENT: reports: Tearing, Nose Congestion Respiratory: reports: No Symptoms reported Cardiac: reports: Other (bradycardia) GI: reports: Diarrhea, Nausea, Poor Appetite : reports: No Symptoms Reported Musculoskeletal: reports: Back Pain, Joint Pain, Muscle Pain Integumentary: reports: Dryness Neuro: reports: Headache, Tremors Endocrine: reports: No Symptoms Reported Hematology: reports: No Symptoms Reported Psychiatric: reports: No Sypmtoms Reported, Judgement Intact, Mood/Affect Appropiate, Orientated x3, Anxious, Depressed (insomnia) Other Systems: Reviewed and Negative Patient History - Patient Medical History Hx Anemia: No Hx Asthma: No Hx Chronic Obstructive Pulmonary Disease (COPD): No Hx Cancer: No Hx Cardiac Disorders: No Hx Congestive Heart Failure: No Hx Hypertension: Yes (on meds) Hx Hypercholesterolemia: No Hx Pacemaker: No HX Cerebrovascular Accident: No Hx Seizures: No Hx Dementia: No Hx Diabetes: No Hx Gastrointestinal Disorders: No Hx Liver Disease: No Hx Genitourinary Disorders: No Hx Sexually Transmitted Disorders: Yes (COLD SORE) Hx Renal Disease (ESRD): No Hx Thyroid Disease: No Hx Human Immunodeficiency Virus (HIV): No (last 10/06 negative) Hx Hepatitis C: No Hx Depression: Yes (THERAPY ONCE A MONTH) Hx Suicide Attempt: Yes (cuttter at age 38) Hx Bipolar Disorder: No Hx Schizophrenia: No Other Medical History: no suicidal,no homicidal - Patient Surgical History Past Surgical History: No Hx Neurologic Surgery: No Hx Cataract Extraction: No Hx Cardiac Surgery: No Hx Lung Surgery: No Hx Breast Surgery: No Hx Breast Biopsy: No Hx Abdominal Surgery: No Hx Appendectomy: No Hx Cholecystectomy: No Hx Genitourinary Surgery: No Hx Section: No Hx Orthopedic Surgery: No Other Surgical History: SURGERY FOR GANGLiON CYST OF RIGHT HAND in 2017 Anesthesia Reaction: No - PPD History Previous Implant?: Yes Documented Results: Negative w/proof Date: 07/02/18 Results: 0 mm PPD to be Administered?: No - Reproductive History Patient is a Female of Child Bearing Age (11 -55 yrs old): No Patient : No - Smoking Cessation Smoking history: Never smoked Have you smoked in the past 12 months: No Hx Chewing Tobacco Use: No - Substance & Tx. History Hx Alcohol Use: No Hx Substance Use: Yes Substance Use Type: Opiates Hx Substance Use Treatment: Yes ([facility] 06/30/18 to 07/05/18) - Substances abused Other Other (specify): percocet Substance route: Oral Frequency: Daily Amount used: (15) 10-325mg Age of first use: 56 Date of last use: 10/10/18 Family Disease History - Family Disease History Family Disease History: Other: Mother (alcoholic) Admission Physical Exam [facility] - Vital Signs Vital Signs: Vital Signs - 24 hr 10/10/18 13:04 Temperature 97.2 F L Pulse Rate 45 L Respiratory 20 Rate Blood Pressure 166/93 - Physical General Appearance: Yes: Moderate Distress, Tremorous, Irritable, Sweating, Anxious HEENTM: Yes: Normal ENT Inspection, OSVALDO, Pharynx Normal Respiratory: Yes: Within Normal Limits, Lungs Clear, Normal Breath Sounds Neck: Yes: Within Normal Limits, Supple, Trachea in good position Breast: Yes: Breast Exam Deferred Cardiology: Yes: Bradycardia Abdominal: Yes: Normal Bowel Sounds, Non Tender, Flat Genitourinary: Yes: Within Normal Limits Back: Yes: Muscle Spasm Musculoskeletal: Yes: Back pain, Muscle Pain Neurological: Yes: plastics patternmaker II-XII NML intact, Fully Oriented, Alert, Motor Strength 5/5 Integumentary: Yes: Dry Lymphatic: Yes: Within Normal Limits - Diagnostic (1) Opioid dependence with withdrawal Current Visit: Yes Status: Acute (2) Anxiety and depression Current Visit: No Status: Acute (3) Insomnia Current Visit: No Status: Chronic (4) Essential hypertension Current Visit: No Status: Chronic (5) Vitamin D deficiency Current Visit: No Status: Acute (6) History of herpes simplex infection Current Visit: No Status: Chronic Cleared for Admission [facility] - Detox or Rehab [facility] Level of Care: Medically Managed Detox Regimen/Protocol: Methadone Breathalyzer - Breathalyzer Breathalyzer: 0 Urine Drug Screen - Test Device Lot number: [id number] Expiration date: 07/18/20 - Control Is test valid?: Yes - Results Drug screen NEGATIVE: No Urine drug screen results: OXY-Oxycodone Inpatient Rehab Admission - Rehab Decision to Admit Inpatient rehab admission?: No
[2018-10-10] MEDS ORDERED: IBUPROFEN 400 MG TABLET (FP) PO PRN (14:29)
[2018-10-10] MEDS ORDERED: MAG HYDROX/AL HYDROX/SIMETH 30 ML UNIT-DOSE CUP PO PRN (14:29)
[2018-10-10] MEDS ORDERED: MENTHOL/PHENOL 1 EACH UD MM PRN (14:29)
[2018-10-10] MEDS ORDERED: BISMUTH SUBSALICYLATE 262 MG/15 ML BTL PO PRN (14:29)
[2018-10-10] MEDS ORDERED: cloNIDine HCL 0.1 MG TABLET PO PRN (14:29)
[2018-10-10] MEDS ORDERED: MAGNESIUM CITRATE 300 ML BOTTLE PO PRN (14:29)
[2018-10-10] MEDS ORDERED: hydrOXYzine PAMOATE 25 MG CAPSULE (FP) PO PRN (14:29)
[2018-10-10] MEDS ORDERED: ACETAMINOPHEN 325 MG TABLET (FP) PO PRN ×2 (14:29)
[2018-10-10] MEDS ORDERED: COLLOIDAL OATMEAL 1 BAR EACH TP PRN (14:37)
[2018-10-10] MEDS ORDERED: METHADONE HCL 10 MG TABLET (FOR DETOX USE ONLY) PO ONE (14:55)
[2018-10-10] MEDS: diazePAM 5 MG TABLET PO PRN ×2 (15:39→22:15)
--- NOTE | 2018-10-10 16:58 | CONSULT ---
[facility] Psychiatric Consult - Data Date of interview: 10/10/18 Admission source: [facility] Identifying data: Patient is a 58 year old single female, mother of three, unemployed, domiciled, and is supported by [facility]. This is one of multiple admissions for patient. Patient admitted to for percocet dependence. Substance Abuse History: Smoking Cessation. Smoking history: Never smoked. Have you smoked in the past 12 months: No. Hx Chewing Tobacco Use: No. - Substance & Tx. History. Hx Alcohol Use: No. Hx Substance Use: Yes. Substance Use Type: Opiates. Hx Substance Use Treatment: Yes ([facility] 06/30/18 to 07/05/18). - Substances abused. Other. Other (specify): percocet. Substance route: Oral. Frequency: Daily. Amount used: (15) 10-325mg. Age of first use: 56. Date of last use: 10/10/18 Medical History: hypertension, Surgery for ganglion cyst of right hand in 2017 Psychiatric History: Patient's first psychiatric contact was in her 30's after she had a suicide attempt via cutting which resulted in a psychiatric hospitalization at [facility]. Patient's most recent psychiatric hospitalization was approximately ten years ago at [facility] after threatening to hurt herself. Ms. Garcia is also known to [facility]. Diagnosis of depression and anxiety. Patient is currently provided with outpatient [facility] [place] and is prescribed abilify 10mg + Lexapro 20mg . She reports medication noncompliance. At present patient reports stable mood. Physical/Sexual Abuse/Trauma History: denies. Mental Status Exam - Mental Status Exam Alert and Oriented to: Time, Place Cognitive Function: Good Patient Appearance: Well Groomed Mood: Euthymic Affect: Mood Congruent Patient Behavior: Cooperative Speech Pattern: Appropriate Voice Loudness: Normal Thought Process: Goal Oriented Thought Disorder: Not Present Hallucinations: Denies Suicidal Ideation: Denies Homicidal Ideation: Denies Insight/Judgement: Poor Sleep: Fair Appetite: Fair Muscle strength/Tone: Normal Gait/Station: Normal Psychiatric Findings - Problem List ([place] 1, 2,3) (1) Opioid dependence with withdrawal Current Visit: Yes Status: Acute (2) Depressive disorder Current Visit: No Status: Chronic - Initial Treatment Plan Initial Treatment Plan: Psychoeducation provided. Detoxification in progress. Patient refuses to accept psychotropic medications. States she is noncompliant when she feels good and right now she is in a "good space" and does need to accept psychotropic medications.
[2018-10-10 17:03] LABS: HEMATOCRIT 39.4 % (32.4-45.2); HEMOGLOBIN 13.2 GM/dL (10.7-15.3); MCH 30.6 pg (25.7-33.7); MCHC 33.4 g/dl (32.0-36.0); MEAN CELL VOLUME 91.6 fl (80-96); MEAN PLT VOLUME 9.7 fl (7.5-11.1); PLATELET COUNT 225 K/MM3 (134-434); RDW 13.8 % (11.6-15.6); WHITE BLOOD COUNT 4.3 K/mm3 (4.0-10.0)
[2018-10-10 17:22] LABS: ALBUMIN 4.2 g/dl (3.4-5.0); BILIRUBIN,TOTAL 0.3 mg/dL (0.2-1); BLOOD UREA NITROGEN 10.3 mg/dL (7-18); CALCIUM 9.6 mg/dL (8.5-10.1); CREATININE 0.8 mg/dL (0.55-1.3); POTASSIUM 3.9 mmol/L (3.5-5.1); TOT PROT 7.7 g/dl (6.4-8.2)
[2018-10-10] MEDS: MELATONIN 5 MG TABLETS PO PRN (22:15)
[2018-10-10] MEDS: THIAMINE HCL 100 MG TABLET (FP) PO SCH (22:15)
[2018-10-10] MEDS: MINERAL OIL/PETROLAT/WATER TOPICAL CREAM 113 GM JAR TP SCH (22:15)
[2018-10-11] MEDS: diazePAM 5 MG TABLET PO PRN ×3 (06:25→22:27)
[2018-10-11] MEDS ORDERED: METHADONE HCL 5 MG TABLET (FOR DETOX USE ONLY) ONE (09:39)
[2018-10-11] MEDS ORDERED: METHADONE HCL 10 MG TABLET (FOR DETOX USE ONLY) ONE (09:39)
[2018-10-11] MEDS ORDERED: METHADONE (DETOX) 20 MG, METHADONE (DETOX) 5 MG PO ONE (10:00)
[2018-10-11] MEDS: CHOLECALCIFEROL (VIT D3) 1,000 UNIT (25 MCG) TABLET PO SCH (10:17)
[2018-10-11] MEDS: amLODIPine BESYLATE 10 MG TABLET (FP) PO SCH (10:18)
[2018-10-11] MEDS: PRENATAL VITAMINS W/ FOLIC ACID TABLET (FP) PO SCH (10:18)
[2018-10-11] MEDS: MINERAL OIL/PETROLAT/WATER TOPICAL CREAM 113 GM JAR TP SCH ×2 (10:18→22:30)
[2018-10-11] MEDS: PANTOPRAZOLE 20 MG TABLET (FP) PO SCH (10:18)
--- NOTE | 2018-10-11 12:11 | PN ---
S COWS - Scale Resting Pulse: 0= [place] 80 or Below Sweatin= Beads of Sweat on Face Restless Observation: 1= Difficult to Sit Still Pupil Size: 0= Normal to Room Light Bone or Joint Aches: 2= Severe Diffuse Aches Runny Nose/ Eye Tearin= None GI Upset > 30mins: 0= None Tremor Observation of Outstretched Hands: 2= Slight Tremor Visible Yawning Observation: 1= 1-2x During Session Anxiety or Irritability: 2=Irritable/Anxious Goose Flesh Skin: 0=Smooth Skin COWS Score: 11 [facility] Progress Note (SOAP) Subjective: c/o sweats, anxiety/irritability, and muscle aches Objective: 10/11/18 12:10 Vital Signs 10/11/18 10/11/18 10/11/18 04:39 06:00 10:00 Temperature 97.7 F 97.9 F Pulse Rate 60 62 Respiratory 18 18 16 Rate Blood Pressure 135/73 141/82 Lab Results WBC 4.3 K/mm3 (4.0-10.0) 10/10/18 14:40 RBC 4.30 M/mm3 (3.60-5.2) 10/10/18 14:40 Hgb 13.2 GM/dL (10.7-15.3) 10/10/18 14:40 Hct 39.4 % (32.4-45.2) 10/10/18 14:40 MCV 91.6 fl (80-96) 10/10/18 14:40 MCHC 33.4 g/dl (32.0-36.0) 10/10/18 14:40 RDW 13.8 % (11.6-15.6) 10/10/18 14:40 Plt Count 225 K/MM3 (134-434) 10/10/18 14:40 Sodium 140 mmol/L (136-145) 10/10/18 14:40 Potassium 3.9 mmol/L (3.5-5.1) 10/10/18 14:40 Chloride 105 mmol/L (98-107) 10/10/18 14:40 Carbon Dioxide 28 mmol/L (21-32) 10/10/18 14:40 Anion Gap 8 MMOL/L (8-16) 10/10/18 14:40 BUN 10.3 mg/dL (7-18) 10/10/18 14:40 Creatinine 0.8 mg/dL (0.55-1.3) 10/10/18 14:40 Random Glucose 76 mg/dL (74-106) 10/10/18 14:40 Calcium 9.6 mg/dL (8.5-10.1) 10/10/18 14:40 Labs noted. Assessment: 10/11/18 12:11 AOX3, in no acute respiratory distress. Full ROM, ambulating in the unit. Withdrawal symptoms. Plan: continue detox.
[2018-10-11] MEDS: METHOCARBAMOL 500 MG TABLET PO PRN (18:07)
[2018-10-11] MEDS: MELATONIN 5 MG TABLETS PO PRN (22:27)
[2018-10-11] MEDS: THIAMINE HCL 100 MG TABLET (FP) PO SCH (22:28)
[2018-10-12] MEDS: diazePAM 5 MG TABLET PO PRN ×2 (04:07→22:37)
[2018-10-12] MEDS ORDERED: METHADONE HCL 10 MG TABLET (FOR DETOX USE ONLY) PO ONE (10:00)
[2018-10-12] MEDS: PANTOPRAZOLE 20 MG TABLET (FP) PO SCH (10:24)
[2018-10-12] MEDS: amLODIPine BESYLATE 10 MG TABLET (FP) PO SCH (10:24)
[2018-10-12] MEDS: PRENATAL VITAMINS W/ FOLIC ACID TABLET (FP) PO SCH (10:24)
[2018-10-12] MEDS: CHOLECALCIFEROL (VIT D3) 1,000 UNIT (25 MCG) TABLET PO SCH (10:25)
[2018-10-12] MEDS: MINERAL OIL/PETROLAT/WATER TOPICAL CREAM 113 GM JAR TP SCH ×2 (10:25→22:35)
[2018-10-12] MEDS ORDERED: cloNIDine HCL 0.1 MG TABLET PO PRN (11:00)
--- NOTE | 2018-10-12 16:51 | PN ---
S COWS - Scale Resting Pulse: 0= [place] 80 or Below Sweatin= Chills/Flushing Restless Observation: 1= Difficult to Sit Still Pupil Size: 0= Normal to Room Light Bone or Joint Aches: 2= Severe Diffuse Aches Runny Nose/ Eye Tearin= Runny Nose/Eyes GI Upset > 30mins: 1= Stomach Cramp Tremor Observation of Outstretched Hands: 2= Slight Tremor Visible Yawning Observation: 0= None Anxiety or Irritability: 2=Irritable/Anxious Goose Flesh Skin: 0=Smooth Skin COWS Score: 11 [facility] Progress Note (SOAP) Subjective: Runny nose, yawning, feels lousy, lack of energy, anxious, interrupted sleep. Wants vistaril increased to help with withdrawal sxs. Objective: 10/12/18 16:49 Last Vital Signs Temp Pulse Resp BP Pulse Ox 98.1 F 63 18 116/69 10/12/18 13:18 10/12/18 13:18 10/12/18 13:18 10/12/18 13:18 Laboratory Tests 10/10/18 10/10/18 10/10/18 14:40 14:40 14:40 WBC 4.3 RBC 4.30 Hgb 13.2 Hct 39.4 MCV 91.6 MCH 30.6 MCHC 33.4 RDW 13.8 Plt Count 225 MPV 9.7 Sodium 140 Potassium 3.9 Chloride 105 Carbon Dioxide 28 Anion Gap 8 BUN 10.3 Creatinine 0.8 Est GFR (CKD-EPI)AfAm 92.87 Est GFR (CKD-EPI)NonAf 80.13 Random Glucose 76 Calcium 9.6 Total Bilirubin 0.3 AST 27 ALT 21 Alkaline Phosphatase 92 Total Protein 7.7 Albumin 4.2 RPR Titer Nonreactive Labs reviewed Assessment: 10/12/18 16:49 Withdrawal sxs Plan: Continue detox Encouraged PO water intake Vistaril increased to 50mg PO q6hr prn to help with withdrawal sxs as per patient's request
[2018-10-12] MEDS: METHOCARBAMOL 500 MG TABLET PO PRN (18:03)
[2018-10-12] MEDS: MAGNESIUM HYDROX 2400MG/30ML ORAL SUSPENSION 30 ML CUP PO PRN (20:55)
[2018-10-12] MEDS: MELATONIN 5 MG TABLETS PO PRN (22:36)
[2018-10-12] MEDS: THIAMINE HCL 100 MG TABLET (FP) PO SCH (22:36)
[2018-10-13] MEDS: diazePAM 5 MG TABLET PO PRN ×2 (02:35→10:54)
[2018-10-13] MEDS: METHOCARBAMOL 500 MG TABLET PO PRN (05:51)
[2018-10-13] MEDS ORDERED: METHADONE HCL 5 MG TABLET (FOR DETOX USE ONLY) ONE (09:07)
[2018-10-13] MEDS ORDERED: METHADONE HCL 10 MG TABLET (FOR DETOX USE ONLY) ONE (09:07)
[2018-10-13] MEDS ORDERED: METHADONE (DETOX) 10 MG, METHADONE (DETOX) 5 MG PO ONE (10:00)
[2018-10-13] MEDS: amLODIPine BESYLATE 10 MG TABLET (FP) PO SCH (10:39)
[2018-10-13] MEDS: PANTOPRAZOLE 20 MG TABLET (FP) PO SCH (10:39)
[2018-10-13] MEDS: PRENATAL VITAMINS W/ FOLIC ACID TABLET (FP) PO SCH (10:39)
[2018-10-13] MEDS: CHOLECALCIFEROL (VIT D3) 1,000 UNIT (25 MCG) TABLET PO SCH (10:39)
[2018-10-13] MEDS: MINERAL OIL/PETROLAT/WATER TOPICAL CREAM 113 GM JAR TP SCH ×2 (10:45→21:23)
[2018-10-13] MEDS: MAGNESIUM HYDROX 2400MG/30ML ORAL SUSPENSION 30 ML CUP PO PRN (10:45)
[2018-10-13] MEDS ORDERED: COLLOIDAL OATMEAL 1 BAR EACH TP ONE (11:25)
--- NOTE | 2018-10-13 11:25 | PN ---
[facility] COWS - Scale Resting Pulse: 0= [place] 80 or Below Sweatin= Chills/Flushing Restless Observation: 1= Difficult to Sit Still Pupil Size: 0= Normal to Room Light Bone or Joint Aches: 1= Mild Discomfort Runny Nose/ Eye Tearin= Nasal Congestion GI Upset > 30mins: 0= None Tremor Observation of Outstretched Hands: 1= Tremor [place], Not Seen Yawning Observation: 1= 1-2x During Session Anxiety or Irritability: 1=Feels Anxious/Irritable Goose Flesh Skin: 0=Smooth Skin COWS Score: 7 [facility] Progress Note (SOAP) Subjective: nausea sometimes sweats interrupted sleep Objective: 10/13/18 11:24 Vital Signs Temperature 97.5 F L 10/13/18 09:36 Pulse Rate 78 10/13/18 09:36 Respiratory Rate 18 10/13/18 09:36 Blood Pressure 125/89 10/13/18 09:36 O2 Sat by Pulse Oximetry (%) Laboratory Tests 10/10/18 10/10/18 10/10/18 14:40 14:40 14:40 WBC 4.3 RBC 4.30 Hgb 13.2 Hct 39.4 MCV 91.6 MCH 30.6 MCHC 33.4 RDW 13.8 Plt Count 225 MPV 9.7 Sodium 140 Potassium 3.9 Chloride 105 Carbon Dioxide 28 Anion Gap 8 BUN 10.3 Creatinine 0.8 Est GFR (CKD-EPI)AfAm 92.87 Est GFR (CKD-EPI)NonAf 80.13 Random Glucose 76 Calcium 9.6 Total Bilirubin 0.3 AST 27 ALT 21 Alkaline Phosphatase 92 Total Protein 7.7 Albumin 4.2 RPR Titer Nonreactive labs noted aaox3 ambulating no acute distress Assessment: 10/13/18 11:25 mild withdrawals Plan: continue detox increase fluids zofran prn
[2018-10-13] MEDS ORDERED: ONDANSETRON *ODT* 4 MG TABLET SL PRN (11:26)
[2018-10-13] MEDS: hydrOXYzine PAMOATE 25 MG CAPSULE (FP) PO PRN (19:31)
[2018-10-13] MEDS: MELATONIN 5 MG TABLETS PO PRN (21:08)
[2018-10-13] MEDS: THIAMINE HCL 100 MG TABLET (FP) PO SCH (21:08)
[2018-10-14] MEDS: METHOCARBAMOL 500 MG TABLET PO PRN ×2 (07:05→18:22)
[2018-10-14] MEDS ORDERED: METHADONE HCL 10 MG TABLET (FOR DETOX USE ONLY) PO ONE (10:00)
[2018-10-14] MEDS: PRENATAL VITAMINS W/ FOLIC ACID TABLET (FP) PO SCH (10:17)
[2018-10-14] MEDS: PANTOPRAZOLE 20 MG TABLET (FP) PO SCH (10:17)
[2018-10-14] MEDS: amLODIPine BESYLATE 10 MG TABLET (FP) PO SCH (10:17)
[2018-10-14] MEDS: MINERAL OIL/PETROLAT/WATER TOPICAL CREAM 113 GM JAR TP SCH ×2 (10:18→22:21)
[2018-10-14] MEDS: CHOLECALCIFEROL (VIT D3) 1,000 UNIT (25 MCG) TABLET PO SCH (10:18)
[2018-10-14] MEDS: hydrOXYzine PAMOATE 25 MG CAPSULE (FP) PO PRN ×2 (10:21→18:22)
--- NOTE | 2018-10-14 12:29 | PN ---
[facility] COWS - Scale Resting Pulse: 1= [place] 81-100 Sweatin= Chills/Flushing Restless Observation: 1= Difficult to Sit Still Pupil Size: 0= Normal to Room Light Bone or Joint Aches: 0= None Runny Nose/ Eye Tearin= None GI Upset > 30mins: 0= None Tremor Observation of Outstretched Hands: 0= None Yawning Observation: 0= None Anxiety or Irritability: 1=Feels Anxious/Irritable Goose Flesh Skin: 0=Smooth Skin COWS Score: 4 [facility] Progress Note (SOAP) Subjective: little anxiety otherwise i feel good Objective: 10/14/18 12:28 Vital Signs Temperature 98.2 F 10/14/18 09:40 Pulse Rate 81 10/14/18 09:40 Respiratory Rate 16 10/14/18 09:40 Blood Pressure 131/90 10/14/18 09:40 O2 Sat by Pulse Oximetry (%) aaox3 ambulating no acute distress Assessment: 10/14/18 12:28 mild withdrawal sx Plan: continue detox d/c in am
[2018-10-14] MEDS: THIAMINE HCL 100 MG TABLET (FP) PO SCH (22:21)
[2018-10-14] MEDS: MELATONIN 5 MG TABLETS PO PRN (22:21)
[2018-10-15] MEDS: METHOCARBAMOL 500 MG TABLET PO PRN (05:55)
[2018-10-15] MEDS ORDERED: METHADONE HCL 5 MG TABLET (FOR DETOX USE ONLY) PO ONE (06:00)
--- NOTE | 2018-10-15 09:10 | DS ---
[facility] Detox Discharge Summary Admission Date: 10/10/18 Discharge Date: 10/15/18 - History Present History: Alcohol Dependence, Opioid Dependence - Physical Exam Results Vital Signs: Vital Signs Temperature 97.9 F 10/15/18 07:34 Pulse Rate 78 10/15/18 07:34 Respiratory Rate 17 10/15/18 07:34 Blood Pressure 137/98 10/15/18 07:34 O2 Sat by Pulse Oximetry (%) - Treatment Hospital Course: Detox Protocol Followed, Detoxed Safely, Responded well, Discharged Condition Good, Rehab Referral Accepted Patient has Accepted a Rehab Referral to: referred to outpatient rehab - Medication Discharge Medications: Ambulatory Orders Amlodipine Besylate 10 mg PO DAILY 03/07/17 Cholecalciferol (Vitamin D3) [Vitamin D3 -] 1,000 unit PO DAILY 03/07/17 Omeprazole 20 mg PO DAILY PRN 03/07/17 Losartan Potassium [Cozaar -] 20 mg PO DAILY 06/30/18 Alprazolam [Xanax] 0.5 mg PO DAILY PRN 10/10/18 Aripiprazole [Abilify -] 10 mg PO DAILY 10/10/18 - Diagnosis (1) Opioid dependence with withdrawal Current Visit: Yes Status: Chronic (2) Alcohol dependence with uncomplicated withdrawal Current Visit: Yes Status: Chronic (3) Anxiety Current Visit: No Status: Acute (4) Anxiety and depression Current Visit: No Status: Acute (5) Depression Current Visit: No Status: Acute (6) Vitamin D deficiency Current Visit: No Status: Acute (7) Weight loss Current Visit: No Status: Acute (8) Depressive disorder Current Visit: No Status: Chronic (9) Essential hypertension Current Visit: Yes Status: Chronic (10) GERD (gastroesophageal reflux disease) Current Visit: Yes Status: Chronic Qualifiers: Esophagitis presence: without esophagitis Qualified Code(s): K21.9 - Gastro -esophageal reflux disease without esophagitis (11) History of herpes simplex infection Current Visit: No Status: Chronic (12) Insomnia Current Visit: No Status: Chronic (13) MDD (major depressive disorder), single episode Current Visit: No Status: Suspected (14) Substance induced mood disorder Current Visit: No Status: Suspected - AMA Did Patient Leave Against Medical Advice: No
[2018-10-15 09:33] VITALS: BP 124/81; PULSE 67; TEMP 97.3
== END 2018-10-15 09:23 | disposition home or self-care (01) | DRG 773 ==
LOC: YASAS 11:44 → Y6N 14:34
PROVIDERS: ADMIT Surgery; ATTEND Surgery
PROC: HZ2ZZZZ Detoxification Services for Substance Abuse Treatment (ICD-10-PCS; principal; 2018-10-10)
DX: F11.23 Opioid dependence with withdrawal (principal); F10.230 Alcohol dependence with withdrawal, uncomplicated; F41.9 Anxiety disorder, unspecified; F32.9 Major depressive disorder, single episode, unspecified; F19.24 Other psychoactive substance dependence with psychoactive substance-induced mood disorder; I10 Essential (primary) hypertension; E55.9 Vitamin D deficiency, unspecified; R63.4 Abnormal weight loss; K21.9 Gastro-esophageal reflux disease without esophagitis; G47.00 Insomnia, unspecified; R00.1 Bradycardia, unspecified; Z91.5 Personal history of self-harm; Z86.19 Personal history of other infectious and parasitic diseases
CPT/HCPCS: 36415; 80053; 85027; 86593

== ENCOUNTER 2019-01-28 10:52 | Inpatient (IN) | payer OTHER ==
[2019-01-28 11:45] VITALS: BMI 23.6
--- NOTE | 2019-01-28 12:05 | HP ---
COWS - Scale Resting Pulse: 0= [place] 80 or Below Sweatin= Chills/Flushing Restless Observation: 1= Difficult to Sit Still Pupil Size: 0= Normal to Room Light Bone or Joint Aches: 0= None Runny Nose/ Eye Tearin= Runny Nose/Eyes GI Upset > 30mins: 1= Stomach Cramp Tremor Observation: 1= Tremor [place], Not Seen Yawning Observation: 2= >3x During Session Anxiety or Irritability: 2=Irritable/Anxious Goose Flesh Skin: 3=Piloerection COWS Score: 13 CIWA Score - Admission Criteria [facility]ASAS Guidelines: Admission for Medically Managed Detox: Requires at least one of the followin. CIWA greater than 12 2. Seizures within the past 24 hours 3. Delirium tremens within the past 24 hours 4. Hallucinations within the past 24 hours 5. Acute intervention needed for co occurring medical disorder 6. Acute intervention needed for co occurring psychiatric disorder 7. Severe withdrawal that cannot be handled at a lower level of care (continued vomiting, continued diarrhea, abnormal vital signs) requiring intravenous medication and/or fluids 8. Admitting History and Physical - Admission Chief Complaint: "I want to get my life together. 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 I want to live without anything chasing me." History of Present Illness: This 58 years old female with percocet dependence,seeking detox,withdrawal symptom, multiple admissions in detox,last [facility] 06/30/18 to 07/05/18.he takes up to 13 percocets per day, last used 5 am this morning. She was in detox here and completed it in 09/2018 but then relapsed after just 2 weeks. He had surgery on her left foot and given oral opioids but she liked the feeling it gave to her and she started to buy them on the streets. 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 active in sport,has bradycardia PMH: history of hypertension denied seizure,no syncope Psych: anxiety and depression on no constant medications She has no significant period of sobriety plan for outpatient program,and meeting History Source: Patient Limitations to Obtaining History: No Limitations - Past Surgical History Additional Past Surgical History: left foot surgery - Smoking History Smoking history: Never smoked Have you smoked in the past 12 months: No - Alcohol/Substance Use Hx Alcohol Use: No Admission ROS [facility] - HPI Allergies/Adverse Reactions: Allergies Allergy/AdvReac Type Severity Reaction Status Date / Time No Known Allergies Allergy Verified 01/28/19 11:31 - Ebola screening Have you traveled outside of the country in the last 21 days: No (N) Have you had contact with anyone from an Ebola affected area: No Have you been sick,other than usual withdrawal symptoms: No Do you have a fever: No - Review of Systems Constitutional: Chills, Diaphoresis EENT: reports: No Symptoms Reported Respiratory: reports: No Symptoms reported Cardiac: reports: No Symptoms Reported GI: reports: Nausea, Abdominal cramping : reports: No Symptoms Reported Musculoskeletal: reports: No Symptoms Reported Integumentary: reports: No Symptoms Reported Neuro: reports: No Symptoms reported Endocrine: reports: No Symptoms Reported Hematology: reports: No Symptoms Reported Psychiatric: reports: Judgement Intact, Mood/Affect Appropiate, Orientated x3 Other Systems: Reviewed and Negative Patient History - Patient Medical History Hx Anemia: No Hx Asthma: No Hx Chronic Obstructive Pulmonary Disease (COPD): No Hx Cancer: No Hx Cardiac Disorders: No Hx Congestive Heart Failure: No Hx Hypertension: Yes (on meds) Hx Hypercholesterolemia: No Hx Pacemaker: No HX Cerebrovascular Accident: No Hx Seizures: No Hx Dementia: No Hx Diabetes: No Hx Gastrointestinal Disorders: No Hx Liver Disease: No Hx Genitourinary Disorders: No Hx Sexually Transmitted Disorders: Yes (COLD SORE) Hx Renal Disease (ESRD): No Hx Thyroid Disease: No Hx Human Immunodeficiency Virus (HIV): No (last 10/06 negative) Hx Hepatitis C: No Hx Depression: Yes (THERAPY ONCE A MONTH) Hx Suicide Attempt: Yes (cuttter at age 38) Hx Bipolar Disorder: No Hx Schizophrenia: No - Patient Surgical History Past Surgical History: No Hx Neurologic Surgery: No Hx Cataract Extraction: No Hx Cardiac Surgery: No Hx Lung Surgery: No Hx Breast Surgery: No Hx Breast Biopsy: No Hx Abdominal Surgery: No Hx Appendectomy: No Hx Cholecystectomy: No Hx Genitourinary Surgery: No Hx Section: No Hx Orthopedic Surgery: No Other Surgical History: SURGERY FOR GANGLiON CYST OF RIGHT HAND in 2017 Anesthesia Reaction: No - PPD History Previous Implant?: Yes Documented Results: Negative w/proof Implanted On Prior R Admission?: Yes Date: 07/02/18 Results: 0 mm PPD to be Administered?: No - Smoking Cessation Smoking history: Never smoked Have you smoked in the past 12 months: No Hx Chewing Tobacco Use: No Initiated information on smoking cessation: Yes 'Breaking Loose' booklet given: 01/28/19 - Substances abused Other Other (specify): percocet Substance route: Oral Frequency: Daily Amount used: (14-15) 10-325mg Age of first use: 56 Date of last use: 01/28/19 Admission Physical Exam [facility] - Vital Signs Vital Signs: Vital Signs - 24 hr 01/28/19 11:16 Temperature 97.6 F Pulse Rate 62 Respiratory 20 Rate Blood Pressure 154/80 - Physical General Appearance: Yes: Moderate Distress, Alcohol on Breath, Irritable, Sweating, Anxious HEENTM: Yes: EOMI, Hearing grossly Normal, Normal ENT Inspection, Normocephalic , Normal Voice, OSVALDO, Pharynx Normal, Tm's normal Respiratory: Yes: Chest Non-Tender, Lungs Clear, Normal Breath Sounds, No Respiratory Distress, No Accessory Muscle Use Neck: Yes: No masses,lesions,Nodules, Supple, Trachea in good position Breast: Yes: Breast Exam Deferred Cardiology: Yes: Regular Rhythm, Regular Rate, S1, S2 Abdominal: Yes: Normal Bowel Sounds, Non Tender, Flat, Soft Genitourinary: Yes: Within Normal Limits Musculoskeletal: Yes: full range of Motion, Gait Steady, Pelvis Stable Extremities: Yes: Normal Capillary Refill, Normal Inspection, Normal Range of Motion, Non-Tender Neurological: Yes: instructional services librarian II-XII NML intact, Fully Oriented, Alert, Motor Strength 5/5, Normal Mood/Affect, Normal Response Integumentary: Yes: Normal Color, Warm Lymphatic: Yes: Within Normal Limits - Diagnostic (1) Opioid dependence with withdrawal Current Visit: Yes Status: Acute (2) Weight loss Current Visit: Yes Status: Acute (3) Essential hypertension Current Visit: Yes Status: Chronic (4) Insomnia Current Visit: Yes Status: Chronic Cleared for Admission [facility] - Detox or Rehab [facility] Level of Care: Medically Managed Detox Regimen/Protocol: Methadone Screened but not Admitted - Documentation of Visit Screened but not Admitted: No Breathalyzer - Breathalyzer Breathalyzer: 0 Urine Drug Screen - Test Device Lot number: [id number] Expiration date: 07/18/20 - Control Is test valid?: Yes - Results Drug screen NEGATIVE: No Urine drug screen results: OXY-Oxycodone Inpatient Rehab Admission - Rehab Decision to Admit Inpatient rehab admission?: No
[2019-01-28] MEDS ORDERED: IBUPROFEN 400 MG TABLET (FP) PO PRN (12:12)
[2019-01-28] MEDS ORDERED: MAG HYDROX/AL HYDROX/SIMETH 30 ML UNIT-DOSE CUP PO PRN (12:12)
[2019-01-28] MEDS ORDERED: cloNIDine HCL 0.1 MG TABLET PO PRN (12:12)
[2019-01-28] MEDS ORDERED: ACETAMINOPHEN 325 MG TABLET (FP) PO PRN ×2 (12:12)
[2019-01-28] MEDS ORDERED: hydrOXYzine PAMOATE 25 MG CAPSULE (FP) PO PRN (12:12)
[2019-01-28] MEDS ORDERED: MAGNESIUM CITRATE 300 ML BOTTLE PO PRN (12:12)
[2019-01-28] MEDS ORDERED: BISMUTH SUBSALICYLATE 262 MG/15 ML BTL PO PRN (12:12)
[2019-01-28] MEDS ORDERED: MENTHOL/PHENOL 1 EACH UD MM PRN (12:12)
[2019-01-28] MEDS ORDERED: MAGNESIUM HYDROX 2400MG/30ML ORAL SUSPENSION 30 ML CUP PO PRN (12:12)
[2019-01-28] MEDS ORDERED: COLLOIDAL OATMEAL 1 BAR EACH TP PRN (12:17)
[2019-01-28] MEDS ORDERED: MINERAL OIL/PETROLAT/WATER TOPICAL CREAM 113 GM JAR TP PRN (12:17)
[2019-01-28] MEDS ORDERED: diazePAM 2 MG TABLET PO PRN (12:33)
[2019-01-28] MEDS ORDERED: METHADONE HCL 10 MG TABLET (FOR DETOX USE ONLY) PO ONE (13:45)
[2019-01-28] MEDS ORDERED: LOSARTAN POTASSIUM 25 MG TABLET PO ONE (14:23)
[2019-01-28] MEDS: diazePAM 5 MG TABLET PO PRN ×2 (14:36→21:39)
[2019-01-28 15:51] LABS: HEMATOCRIT 36.7 % (32.4-45.2); MCH 30.2 pg (25.7-33.7); MCHC 32.8 g/dl (32.0-36.0); MEAN CELL VOLUME 92.1 fl (80-96); MEAN PLT VOLUME 9.2 fl (7.5-11.1); PLATELET COUNT 232 K/MM3 (134-434); RBC 3.99 M/mm3 (3.60-5.2); RDW 14.5 % (11.6-15.6); WHITE BLOOD COUNT 3.7 K/mm3 (4.0-10.0)
[2019-01-28 16:16] LABS: ALBUMIN 3.9 g/dl (3.4-5.0); BILIRUBIN,TOTAL 0.4 mg/dL (0.2-1); BLOOD UREA NITROGEN 15.8 mg/dL (7-18); CALCIUM 9.2 mg/dL (8.5-10.1); CREATININE 0.9 mg/dL (0.55-1.3); TOT PROT 7.5 g/dl (6.4-8.2)
[2019-01-28] MEDS: valACYclovir HCL 500 MG TABLET (FP) PO SCH (22:06)
[2019-01-28] MEDS: MELATONIN 5 MG TABLETS PO PRN (22:07)
[2019-01-28] MEDS: THIAMINE HCL 100 MG TABLET (FP) PO SCH (22:07)
[2019-01-29] MEDS: diazePAM 5 MG TABLET PO PRN ×2 (06:02→17:41)
[2019-01-29] MEDS ORDERED: METHADONE HCL 5 MG TABLET (FOR DETOX USE ONLY) ONE (09:14)
[2019-01-29] MEDS ORDERED: METHADONE HCL 10 MG TABLET (FOR DETOX USE ONLY) ONE (09:14)
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
[2019-01-29] MEDS ORDERED: LOSARTAN POTASSIUM 50 MG TABLET (FP) PO SCH (10:00)
[2019-01-29] MEDS ORDERED: METHOCARBAMOL 500 MG TABLET PO ONE (10:00)
[2019-01-29] MEDS ORDERED: METHADONE (DETOX) 20 MG, METHADONE (DETOX) 5 MG PO ONE (10:00)
[2019-01-29] MEDS: PRENATAL VITAMINS W/ FOLIC ACID TABLET (FP) PO SCH (10:26)
[2019-01-29] MEDS: CHOLECALCIFEROL (VIT D3) 1,000 UNIT (25 MCG) TABLET PO SCH (10:26)
[2019-01-29] MEDS: NICOTINE 7 MG/24 HOURS TOPICAL PATCH TD SCH (10:26)
[2019-01-29] MEDS: PANTOPRAZOLE 40 MG TABLET (FP) PO SCH (10:26)
[2019-01-29] MEDS: amLODIPine BESYLATE 10 MG TABLET (FP) PO SCH (10:26)
[2019-01-29] MEDS: valACYclovir HCL 500 MG TABLET (FP) PO SCH (21:23)
[2019-01-29] MEDS: THIAMINE HCL 100 MG TABLET (FP) PO SCH (21:23)
[2019-01-29] MEDS ORDERED: SUVOREXANT 5 MG TABLET PO ONE (22:00)
[2019-01-30] MEDS: diazePAM 5 MG TABLET PO PRN ×3 (05:09→22:12)
[2019-01-30] MEDS ORDERED: METHADONE HCL 10 MG TABLET (FOR DETOX USE ONLY) PO ONE (10:00)
[2019-01-30] MEDS: CHOLECALCIFEROL (VIT D3) 1,000 UNIT (25 MCG) TABLET PO SCH (10:40)
[2019-01-30] MEDS: PRENATAL VITAMINS W/ FOLIC ACID TABLET (FP) PO SCH (10:41)
[2019-01-30] MEDS: PANTOPRAZOLE 40 MG TABLET (FP) PO SCH (10:41)
[2019-01-30] MEDS: amLODIPine BESYLATE 10 MG TABLET (FP) PO SCH (10:41)
[2019-01-30] MEDS: NICOTINE 7 MG/24 HOURS TOPICAL PATCH TD SCH (10:44)
[2019-01-30] MEDS ORDERED: HYDROCORTISONE 2.5% TOPICAL CREAM 30 GM TUBE PR ONE (10:46)
[2019-01-30] MEDS: DOCUSATE SODIUM 100 MG CAPSULE (FP) PO SCH ×2 (13:35→22:08)
--- NOTE | 2019-01-30 17:04 | PN ---
[facility] COWS - Scale Resting Pulse: 0= [place] 80 or Below Sweatin= Chills/Flushing Restless Observation: 1= Difficult to Sit Still Pupil Size: 1= Pupils >than Normal Bone or Joint Aches: 1= Mild Discomfort Runny Nose/ Eye Tearin= None GI Upset > 30mins: 1= Stomach Cramp Tremor Observation of Outstretched Hands: 0= None Yawning Observation: 0= None Anxiety or Irritability: 1=Feels Anxious/Irritable Goose Flesh Skin: 0=Smooth Skin COWS Score: 6 [facility] Progress Note (SOAP) Subjective: interrupted sleep, sweats, shakes , perirectal skin irrition , constipation Objective: 01/30/19 17:00 Vital Signs Temperature 98.2 F 01/30/19 13:30 Pulse Rate 61 01/30/19 13:30 Respiratory Rate 18 01/30/19 13:30 Blood Pressure 130/78 01/30/19 13:30 O2 Sat by Pulse Oximetry (%) Laboratory Tests 01/28/19 01/28/19 01/28/19 12:05 12:05 12:10 WBC 3.7 L RBC 3.99 Hgb 12.0 Hct 36.7 MCV 92.1 MCH 30.2 MCHC 32.8 RDW 14.5 Plt Count 232 MPV 9.2 Sodium 138 Potassium 4.0 Chloride 106 Carbon Dioxide 27 Anion Gap 5 L BUN 15.8 Creatinine 0.9 Est GFR (CKD-EPI)AfAm 80.55 Est GFR (CKD-EPI)NonAf 69.50 Random Glucose 82 Calcium 9.2 Total Bilirubin 0.4 AST 27 ALT 22 Alkaline Phosphatase 90 Total Protein 7.5 Albumin 3.9 RPR Titer Nonreactive pt aox3 in nad ambulating well , cooperative Assessment: 01/30/19 17:02 withdrawal sx's constipation Plan: cont detox increase fluids anusol 2.5% cream colace tid
--- NOTE | 2019-01-30 19:50 | PN ---
[facility] Progress Note Note: C/o constipation, difficulty evacuating bowels, and increased tenderness at anal area. States blood streaks noted when strains. BM noted in t-bowl: 1 strand : approx 6 cm, narrow, firm looking and brown. Abd non-tender. Small skin tag noted at anal orifice. No blood noted. Plan: Miralax BID x 2 doses Hemorrhoidal cream q2h prn. Encourage increased fluids/vegetables.
[2019-01-30] MEDS: THIAMINE HCL 100 MG TABLET (FP) PO SCH (22:08)
[2019-01-30] MEDS: valACYclovir HCL 500 MG TABLET (FP) PO SCH (22:08)
[2019-01-30] MEDS: HYDROCORTISONE 2.5% TOPICAL CREAM 30 GM TUBE TP SCH (22:09)
[2019-01-30] MEDS: MELATONIN 5 MG TABLETS PO PRN (22:10)
[2019-01-30] MEDS: METHOCARBAMOL 500 MG TABLET PO PRN (22:11)
[2019-01-30] MEDS: POLYETHYLENE GLYCOL 3350 119 GM BTL PO SCH (23:09)
[2019-01-30] MEDS: BENZOCAINE 28 GM HEMORRHOIDAL OINTMENT PR PRN (23:10)
[2019-01-31] MEDS: diazePAM 5 MG TABLET PO PRN ×2 (05:17→13:42)
[2019-01-31] MEDS: METHOCARBAMOL 500 MG TABLET PO PRN ×2 (05:17→16:50)
[2019-01-31] MEDS: DOCUSATE SODIUM 100 MG CAPSULE (FP) PO SCH ×3 (07:11→22:45)
[2019-01-31] MEDS: BENZOCAINE 28 GM HEMORRHOIDAL OINTMENT PR PRN (09:00)
[2019-01-31] MEDS ORDERED: METHADONE HCL 10 MG TABLET (FOR DETOX USE ONLY) ONE (09:43)
[2019-01-31] MEDS ORDERED: METHADONE HCL 5 MG TABLET (FOR DETOX USE ONLY) ONE (09:44)
[2019-01-31] MEDS ORDERED: METHADONE (DETOX) 10 MG, METHADONE (DETOX) 5 MG PO ONE (10:00)
[2019-01-31] MEDS: NICOTINE 7 MG/24 HOURS TOPICAL PATCH TD SCH (10:24)
[2019-01-31] MEDS: HYDROCORTISONE 2.5% TOPICAL CREAM 30 GM TUBE TP SCH ×2 (10:25→22:44)
[2019-01-31] MEDS: PRENATAL VITAMINS W/ FOLIC ACID TABLET (FP) PO SCH (10:25)
[2019-01-31] MEDS: CHOLECALCIFEROL (VIT D3) 1,000 UNIT (25 MCG) TABLET PO SCH (10:25)
[2019-01-31] MEDS: amLODIPine BESYLATE 10 MG TABLET (FP) PO SCH (10:25)
[2019-01-31] MEDS: PANTOPRAZOLE 40 MG TABLET (FP) PO SCH (10:25)
[2019-01-31] MEDS: POLYETHYLENE GLYCOL 3350 119 GM BTL PO SCH (10:28)
--- NOTE | 2019-01-31 13:05 | PN ---
[facility] COWS - Scale Resting Pulse: 0= [place] 80 or Below Sweatin= Chills/Flushing Restless Observation: 0= Sits Still Pupil Size: 0= Normal to Room Light Bone or Joint Aches: 2= Severe Diffuse Aches Runny Nose/ Eye Tearin= None GI Upset > 30mins: 0= None Tremor Observation of Outstretched Hands: 0= None Yawning Observation: 0= None Anxiety or Irritability: 2=Irritable/Anxious Goose Flesh Skin: 0=Smooth Skin COWS Score: 5 [facility] Progress Note (SOAP) Subjective: c/o mild withdrawal symptoms. Objective: 01/31/19 13:04 Vital Signs 01/31/19 01/31/19 06:18 09:22 Temperature 98.4 F 97.6 F Pulse Rate 59 L 50 L Respiratory 16 16 Rate Blood Pressure 116/76 129/76 Laboratory Last Values WBC 3.7 K/mm3 (4.0-10.0) L 01/28/19 12:10 RBC 3.99 M/mm3 (3.60-5.2) 01/28/19 12:10 Hgb 12.0 GM/dL (10.7-15.3) 01/28/19 12:10 Hct 36.7 % (32.4-45.2) 01/28/19 12:10 MCV 92.1 fl (80-96) 01/28/19 12:10 MCH 30.2 pg (25.7-33.7) 01/28/19 12:10 MCHC 32.8 g/dl (32.0-36.0) 01/28/19 12:10 RDW 14.5 % (11.6-15.6) 01/28/19 12:10 Plt Count 232 K/MM3 (134-434) 01/28/19 12:10 MPV 9.2 fl (7.5-11.1) 01/28/19 12:10 Sodium 138 mmol/L (136-145) 01/28/19 12:05 Potassium 4.0 mmol/L (3.5-5.1) 01/28/19 12:05 Chloride 106 mmol/L (98-107) 01/28/19 12:05 Carbon Dioxide 27 mmol/L (21-32) 01/28/19 12:05 Anion Gap 5 MMOL/L (8-16) L 01/28/19 12:05 BUN 15.8 mg/dL (7-18) 01/28/19 12:05 Creatinine 0.9 mg/dL (0.55-1.3) 01/28/19 12:05 Est GFR (CKD-EPI)AfAm 80.55 01/28/19 12:05 Est GFR (CKD-EPI)NonAf 69.50 01/28/19 12:05 Random Glucose 82 mg/dL (74-106) 01/28/19 12:05 Calcium 9.2 mg/dL (8.5-10.1) 01/28/19 12:05 Total Bilirubin 0.4 mg/dL (0.2-1) 01/28/19 12:05 AST 27 U/L (15-37) 01/28/19 12:05 ALT 22 U/L (13-61) 01/28/19 12:05 Alkaline Phosphatase 90 U/L (45-117) 01/28/19 12:05 Total Protein 7.5 g/dl (6.4-8.2) 01/28/19 12:05 Albumin 3.9 g/dl (3.4-5.0) 01/28/19 12:05 RPR Titer Nonreactive (NONREACTIVE) 01/28/19 12:05 Labs noted. Assessment: 01/31/19 13:04 AOX3, in no acute respiratory distress. Full ROM, ambulating in the unit. Withdrawal symptoms. Plan: continue detox.
[2019-01-31 17:37] VITALS: BP 131/87; PULSE 61; TEMP 98.3
--- NOTE | 2019-01-31 20:21 | PN ---
S Progress Note Note: Patient w/ a hx opioid use disorder her for detox. Patient on a methadone taper. Patient w/ c/o constipation and abnormal BM x 3 days w/o relief from laxatives Patient c/o increased abd size and tenderness x 1. Denies nausea/vomiting. States last BM was one skinny short piece earlier today. States has brown liquid seepage from anus. Vital Signs 01/31/19 01/31/19 15:19 17:36 Temperature 96.1 F L 98.3 F Pulse Rate 64 61 Respiratory 18 18 Rate Blood Pressure 126/77 131/87 Abd firm, irregular contour, distended and tender to touch. No guarding. No rebound. Plan: Send to ED for evaluation. Patient can return to [facility] once evaluated. Report given to Dr. Kwong at [facility]. Patient transported to ED via ambulance.
[2019-01-31] MEDS: THIAMINE HCL 100 MG TABLET (FP) PO SCH (22:45)
[2019-01-31] MEDS: valACYclovir HCL 500 MG TABLET (FP) PO SCH (22:45)
[2019-02-01] MEDS: DOCUSATE SODIUM 100 MG CAPSULE (FP) PO SCH (07:47)
[2019-02-01] MEDS ORDERED: METHADONE HCL 10 MG TABLET (FOR DETOX USE ONLY) PO ONE (10:00)
[2019-02-02] MEDS ORDERED: METHADONE HCL 5 MG TABLET (FOR DETOX USE ONLY) PO ONE (06:00)
== END 2019-02-01 07:54 | disposition short-term general hospital (02) | DRG 773 ==
LOC: YASAS 10:52 → Y6N 12:46 → Y3N 22:22
PROVIDERS: ADMIT Allergy & Immunology; ATTEND Allergy & Immunology
PROC: HZ2ZZZZ Detoxification Services for Substance Abuse Treatment (ICD-10-PCS; principal; 2019-01-28)
DX: F11.23 Opioid dependence with withdrawal (principal); I10 Essential (primary) hypertension; K59.00 Constipation, unspecified; R10.9 Unspecified abdominal pain; K31.89 Other diseases of stomach and duodenum; R63.4 Abnormal weight loss; G47.00 Insomnia, unspecified; Z91.5 Personal history of self-harm
CPT/HCPCS: 36415; 80053; 85027; 86593

== ENCOUNTER 2019-01-31 21:38 | Inpatient (IN) | payer OTHER ==
[2019-01-31 21:45] VITALS: BMI 23.6
--- NOTE | 2019-01-31 22:53 | PDOC ---
Attending Attestation - Resident Resident Name: Jacklyn Barber - ED Attending Attestation I have performed the following: I have examined & evaluated the patient, The case was reviewed & discussed with the resident, I agree w/resident's findings & plan, Exceptions are as noted - HPI HPI: 01/31/19 22:52 Ms Garcia is a 58 yo F who presents from [facility] due to constipation and abdominal pain Pt has a h/o percocet dependence, HTN She has had multiple admissions for detox, taking upwards of 13 percocets/day She reported to the staff at [facility] that she was constipated Pt given Magnesium Citrate and Colace Pt having watery brown stools Now reports abdominal distention 01/31/19 22:55 - Physicial Exam PE: 01/31/19 22:53 GENERAL: The patient is in no acute distress. ENT: Ears normal, nares patent, oropharynx clear without exudates. Moist mucous membranes. NECK: Normal range of motion, supple LUNGS: Breath sounds equal, clear to auscultation bilaterally. No wheezes, and no crackles. HEART:Regular rate and rhythm, normal S1 and S2 without murmur, rub or gallop. ABDOMEN: Soft, anterior abd wall tenderness, no distention, no involuntary guarding, no rebound EXTREMITIES: Normal range of motion, no edema. NEUROLOGICAL: Cranial nerves II through XII grossly intact. Normal speech. No focal neurological deficits. SKIN: Warm, Dry, normal turgor, no rashes or lesions noted. 02/04/19 10:38 - Medical Decision Making 02/04/19 10:35 Laboratory Tests 01/31/19 02/01/19 02/01/19 23:18 00:20 00:20 WBC 4.6 Hgb 11.6 Hct 35.4 Plt Count 206 BUN 12.3 Creatinine 0.9 Stool Occult Blood Negative CT demonstrates: supraumbilical omental hernia measuring 5 x 4.5 x 3.3cm w/ surrounding edema, concerning for incarceration. Also notes small hiatal hernia, diverticulosis, heterogeneous enlarged uterus. 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 Lactate 1.0 Re-examined pt. TTP over location of hernia. No overlying erythema, warmth, or other skin changes. Pt states there is no pain except w/ palpation. Case reviewed with Dr. Siddiqi Will pre op patient She will see this patient in the ER Clinical impression: incarcerated hernia, initial presentation
--- NOTE | 2019-01-31 23:33 | PDOC ---
History of Present Illness - General Chief Complaint: Pain Stated Complaint: ABD PAIN Time Seen by Provider: 01/31/19 22:47 - History of Present Illness Initial Comments: Genevieve Garcia is a 58yo woman with a PMH of HTN, opiate abuse (Percocets) who presents to the ED from detox due to constipation for 3 days, abdominal pain , and BRBPR with bowel movements. She states that she generally has a BM every day without straining, but for the past 3 days she has been unable to go. She reports that yesterday and today she tried for a long period of time to have a bowel movement with significant straining. She noted red blood on the toilet tissue, which she has never had before. She reports that she took milk of mag at detox without any results. She also currently report abdominal bloating and pain, which she is unable to describe, mostly in the epigastrium and left upper abdomen. She denies any nausea/vomiting or PO intolerance. She has never been told that she has hemorrhoids and has never had significant constipation in the past. She additionally denies any chest pain, SOB, fever/chills, or other recent symptoms. Past History - Past Medical History Allergies/Adverse Reactions: Allergies Allergy/AdvReac Type Severity Reaction Status Date / Time No Known Allergies Allergy Verified 01/31/19 21:45 Home Medications: Ambulatory Orders Amlodipine Besylate 10 mg PO DAILY 03/07/17 Cholecalciferol (Vitamin D3) [Vitamin D3 -] 1,000 unit PO DAILY 03/07/17 Omeprazole 20 mg PO DAILY PRN 03/07/17 Losartan Potassium [Cozaar -] 20 mg PO DAILY 06/30/18 Alprazolam [Xanax] 0.5 mg PO DAILY PRN 10/10/18 Aripiprazole [Abilify -] 10 mg PO PRN PRN 10/10/18 Escitalopram Oxalate [Lexapro -] 20 mg PO PRN PRN 01/28/19 Valacyclovir HCl [Valtrex] 500 mg PO HS 01/28/19 Zolpidem Tartrate [Ambien] 10 mg PO HS PRN 01/28/19 Naloxone HCl [Narcan] 4 mg NS ASDIR PRN #1 spray 01/29/19 Anemia: No Asthma: No Cancer: No Cardiac Disorders: No CVA: No COPD: No CHF: No Dementia: No Diabetes: No GI Disorders: Yes (Hx of GERD) Disorders: No HTN: No Hypercholesterolemia: No Kidney Stones: No Liver Disease: No Seizures: No Thyroid Disease: No - Surgical History Abdominal Surgery: No Appendectomy: No Cardiac Surgery: No Cholecystectomy: No Lung Surgery: No Neurologic Surgery: No Orthopedic Surgery: No - Reproductive History PID: No - Immunization History Immunization Up to Date: Yes - Psycho Social/Smoking Cessation Hx Smoking History: Never smoked Have you smoked in the past 12 months: No Information on smoking cessation initiated: No 'Breaking Loose' booklet given: 01/28/19 Hx Alcohol Use: No Drug/Substance Use Hx: No Substance Use Type: Opiates Hx Substance Use Treatment: Yes Review of Systems - Review of Systems Comments:: General: No fevers, no chills, no weight or appetite change, no malaise HEENT: No changes in vision, no changes in hearing, no congestion, no sore throat CV: No chest pain, no palpitations, no LE edema Pulm: No SOB, no cough, no wheezing GI: No nausea or vomiting. See HPI : No frequency, no urgency, no dysuria Musc: No back pain, no joint swelling, no recent injury Skin: No rash, no lesions, no erythema Endo: No excessive thirst, no heat/cold intolerance Heme: No unusual bruising or bleeding, no swollen glands Neuro: No syncope, no numbness/tingling, no focal weakness Vasc: No claudication Psych: No recent change in mood, no SI or HI *Physical Exam - Vital Signs Last Vital Signs Temp Pulse Resp BP Pulse Ox 97.9 F 60 20 146/82 98 01/31/19 21:41 01/31/19 21:41 01/31/19 21:41 01/31/19 21:41 01/31/19 21:41 - Physical Exam General: Comfortable, no acute distress HEENT: Atraumatic, PERRL, EOMI, MMM, voice normal, normal neck ROM Cards: RRR, no murmur appreciated Pulm: Comfortable on room air, clear to auscultation bilaterally Abd: Soft, nontender, nondistended Rectal: Normal tone, no blood noted, no perianal lesions, no fissure, no hemorrhoids. Soft brown stool in vault Ext: Atraumatic. No LE edema. ROM intact. WWP Skin: Normal color, no rashes or lesions Neuro: A&Ox3, CN grossly intact, normal speech, motor/sensory grossly intact and symmetric Psych: Mood appropriate to situation ED Treatment Course - LABORATORY CBC & Chemistry Diagram: 02/01/19 00:20 02/01/19 00:20 - ADDITIONAL ORDERS Additional order review: Laboratory Results 01/31/19 23:18 Stool Occult Blood Negative Medical Decision Making - Medical Decision Making 01/31/19 23:27 Genevieve Garcia is a 58yo woman with a PMH of HTN, opiate abuse (Percocets) who presents to the ED from detox due to constipation for 3 days, abdominal pain , and BRBPR with bowel movements. She denies nausea/vomiting, PO intolerance, h/ o hemorrhoids but does endorse significant straining for a bowel movement for several days. - Ddx includes pain due to constipation 2/2 to chronic opiate use, gastritis, mesenteric ischemia, pancreatitis. No RUQ pain suggesting cholecystitis but will check LFT's. No lower abdominal TTP suggesting appendicitis or diverticulitis. - CBC, CMP, lipase, lactate - NS, famotidine, maalox - Abd xray to eval for constipation 02/01/19 00:38 - Abd xrays without concerning findings - CT abd/pelvis with IV and PO contrast for further evaluation of continued pain - PO contrast started 02/01/19 01:57 - Labs reviewed. No concerning abnormalities 02/01/19 03:01 - CT notable for supraumbilical omental hernia measuring 5 x 4.5 x 3.3cm w/ surrounding edema, concerning for incarceration. Also notes small hiatal hernia , diverticulosis, heterogeneous enlarged uterus. 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 - Lactate sent, pending - Will most likely admit w/ surgical eval 02/01/19 03:37 - Lactate 1.0, less concerning for strangulation - Re-examined pt. TTP over location of hernia. No overlying erythema, warmth, or other skin changes. Pt states there is no pain except w/ palpation. 02/01/19 03:51 - Sign out given to Dr Corrales, will admit to med/surg 12/15/19 04:10 - Spoke to Dr Siddiqi. Will evaluate pt - PT, PTT, type and screen, EKG, CXR - NPO, IVF Discussed with Dr Brent Barber PGY2 Discharge - Discharge Information Problems reviewed: Yes Clinical Impression/Diagnosis: Ventral hernia Qualifiers: Obstruction and gangrene presence: without obstruction or gangrene Qualified Code(s): K43.9 - Ventral hernia without obstruction or gangrene Condition: Stable - Admission Yes - Follow up/Referral - Patient Discharge Instructions - Post Discharge Activity
[2019-01-31] MEDS ORDERED: MAG HYDROX/AL HYDROX/SIMETH 30 ML UNIT-DOSE CUP PO ONE (23:34)
[2019-01-31] MEDS ORDERED: FAMOTIDINE 20 MG/50 ML IVPB 20 MG/50 ML MG IVPB ONE (23:34)
[2019-01-31] MEDS ORDERED: SODIUM CHLORIDE 0.9% 500 ML INFUS.BAG IV ONE (23:34)
[2019-02-01] MEDS ORDERED: FAMOTIDINE 20 MG/50 ML IVPB 20 MG/50 ML MG IVPB ONE (00:01)
[2019-02-01 00:30] LABS: BASO % 0.8 % (0-2.0); EOS % 1.9 % (0-4.5); HEMATOCRIT 35.4 % (32.4-45.2); HEMOGLOBIN 11.6 GM/dL (10.7-15.3); LYMPH % 31.4 % (8-40); MCH 30.1 pg (25.7-33.7); MCHC 32.7 g/dl (32.0-36.0); MEAN CELL VOLUME 91.9 fl (80-96); MEAN PLT VOLUME 8.4 fl (7.5-11.1); MONO % 14.4 % (3.8-10.2); NEUT % 51.5 % (42.8-82.8); PLATELET COUNT 206 K/MM3 (134-434); RBC 3.86 M/mm3 (3.60-5.2); WHITE BLOOD COUNT 4.6 K/mm3 (4.0-10.0)
[2019-02-01 00:52] LABS: AMYLASE 75 U/L (25-115); LIPASE 108 U/L (73-393)
[2019-02-01 00:58] LABS: ALBUMIN 3.7 g/dl (3.4-5.0); BILIRUBIN,TOTAL 0.2 mg/dL (0.2-1); BLOOD UREA NITROGEN 12.3 mg/dL (7-18); CALCIUM 9.1 mg/dL (8.5-10.1); CREATININE 0.9 mg/dL (0.55-1.3); POTASSIUM 4.5 mmol/L (3.5-5.1); TOT PROT 6.9 g/dl (6.4-8.2)
[2019-02-01] MEDS ORDERED: SODIUM CHLORIDE 1,000 ML IV SCH ×2 (03:45→06:00)
--- NOTE | 2019-02-01 05:22 | HP ---
CHIEF COMPLAINT: abdominal pain, rectal pain HISTORY OF PRESENT ILLNESS: Ms. Garcia is a 58y/o female with HTN, anxiety disorder, depressive disorder, and opioid use disorder (Percocets for 2 years) who presents from [facility] with intermittent abdominal and rectal pain. She reports beginning detox 3 days ago and on the same day began experiencing rectal pain, especially when trying to have a bowel movement. This is associated with rectal burning and itching. She reports small amounts of stool and blood has been seen on the toilet paper, not in the toilet or in the stool. The pain is 8/10. She also reports central abdominal pain that is intermittent, worse with movement, and "knotting" pain, max 10/10. She was given milk of magnesia without relief before presenting to the ED. She denies nausea, vomiting, acid reflux, and hx of constipation. Pt has not had a colonoscopy in the past. Menopause at age 45 with no vaginal bleeding since then. ER course was notable for: (1) famotidine, NS (2) CT abdomen- supraumbilical hernia with edema in the herniated fat most likely due to incarceration or strangulation PAST MEDICAL HISTORY: HTN, anxiety disorder, depressive disorder, and opioid use disorder PAST SURGICAL HISTORY: 3 vertical c-sections left foot surgery right hand surgery for ganglion cyst Social History: Smoking: quit 2002 Alcohol: denies Drugs: Percocet, formerly used cocaine and quit about 10 years ago Family History: no hx of bleeding disorders mother- suicidal ideations Allergies No Known Allergies Allergy (Verified 01/31/19 21:45) HOME MEDICATIONS: Home Medications Medication Instructions Recorded Amlodipine Besylate 10 mg PO DAILY 03/07/17 Cholecalciferol (Vitamin D3) 1,000 unit PO DAILY 03/07/17 [Vitamin D3 -] Omeprazole 20 mg PO DAILY PRN 03/07/17 Alprazolam [Xanax] 0.5 mg PO DAILY PRN 10/10/18 Aripiprazole [Abilify -] 10 mg PO PRN PRN 10/10/18 Escitalopram Oxalate [Lexapro -] 20 mg PO PRN PRN 01/28/19 Valacyclovir HCl [Valtrex] 500 mg PO HS 01/28/19 Zolpidem Tartrate [Ambien] 10 mg PO HS PRN 01/28/19 Naloxone HCl [Narcan] 4 mg NS ASDIR PRN #1 spray 01/29/19 REVIEW OF SYSTEMS see HPI PHYSICAL EXAMINATION Vital Signs - 24 hr 01/31/19 21:41 Temperature 97.9 F Pulse Rate 60 Respiratory 20 Rate Blood Pressure 146/82 O2 Sat by Pulse 98 Oximetry (%) GENERAL: Awake, alert, and fully oriented, in no acute distress. HEAD: Normal with no signs of trauma. EYES: Pupils equal, round and reactive to light, extraocular movements intact, conjunctiva clear. EARS, NOSE, THROAT: Ears normal, nares patent. Moist mucous membranes. NECK: Normal range of motion, no JVD or masses. LUNGS: Clear to auscultation bilaterally. No wheezes. HEART: Regular rate and rhythm, 3/6 holosystolic murmur best heard at KRISTI, pronounced S2 ABDOMEN: Soft, generalized tenderness to deep palpation, tender to light palpation superior to umbilicus, hyperactive bowel sounds, no guarding or rebound, ventral hernia superior to umbilicus which is not-reducible and is more pronounced with valsalva, vertical scar and small scars on abdomen, no acute discoloration noted RECTAL: External hemorrhoid at 5 o' clock position, no masses noted, light brown stool, no blood noted MUSCULOSKELETAL: Normal range of motion. UPPER EXTREMITIES: Warm, well-perfused. No peripheral edema. LOWER EXTREMITIES: Warm, well-perfused. No peripheral edema. NEUROLOGICAL: Cranial nerves II-XII intact. Normal speech. PSYCHIATRIC: Appropriate mood and affect. SKIN: Warm, dry, normal turgor Laboratory Results - last 24 hr 01/31/19 02/01/19 02/01/19 23:18 00:20 00:20 WBC 4.6 RBC 3.86 Hgb 11.6 Hct 35.4 MCV 91.9 MCH 30.1 MCHC 32.7 RDW 14.0 Plt Count 206 MPV 8.4 Absolute Neuts (auto) 2.4 Neutrophils % 51.5 Lymphocytes % 31.4 Monocytes % 14.4 H Eosinophils % 1.9 Basophils % 0.8 Nucleated RBC % 0 Sodium 140 Potassium 4.5 Chloride 104 Carbon Dioxide 30 Anion Gap 6 L BUN 12.3 Creatinine 0.9 Est GFR (CKD-EPI)AfAm 80.55 Est GFR (CKD-EPI)NonAf 69.50 Random Glucose 95 Lactic Acid Calcium 9.1 Total Bilirubin 0.2 AST 27 ALT 23 Alkaline Phosphatase 86 Total Protein 6.9 Albumin 3.7 Total Amylase Lipase Stool Occult Blood Negative 02/01/19 02/01/19 00:20 02:21 WBC RBC Hgb Hct MCV MCH MCHC RDW Plt Count MPV Absolute Neuts (auto) Neutrophils % Lymphocytes % Monocytes % Eosinophils % Basophils % Nucleated RBC % Sodium Potassium Chloride Carbon Dioxide Anion Gap BUN Creatinine Est GFR (CKD-EPI)AfAm Est GFR (CKD-EPI)NonAf Random Glucose Lactic Acid 1.0 Calcium Total Bilirubin AST ALT Alkaline Phosphatase Total Protein Albumin Total Amylase 75 Lipase 108 Stool Occult Blood ASSESSMENT/PLAN: Ms. Garcia is a 58y/o female with HTN, anxiety disorder, depressive disorder, and opioid use disorder (Percocets for 2 years) who presents from [facility] with intermittent abdominal and rectal pain x 3 days. #supraumbilical hernia with edema from incarceration vs strangulation -stable vitals, afebrile, no leukocytosis or LA -surgery will see pt in the morning -Tylenol PRN -try to avoid narcotics #external hemorrhoids #constipation -consider bowel regimen after decision for surgery #opioid use disorder -no active signs of withdrawal -continue methadone taper #HTN -amlodipine 10mg with sip of water #anxiety disorder #depressive disorder -pt takes meds "when I need them" and she is not currently taking them at detox -monitor DVT Ppx SCDs FEN NS 75mL/hr NPO except for amlodipine and methadone monitor labs Visit type - Emergency Visit Emergency Visit: Yes ED Registration Date: 02/01/19 Care time: The patient presented to the Emergency Department on the above date and was hospitalized for further evaluation of their emergent condition. - New Patient This patient is new to me today: Yes Date on this admission: 02/01/19 - Critical Care Critical Care patient: No ATTENDING PHYSICIAN STATEMENT I saw and evaluated the patient. I reviewed the resident's note and discussed the case with the resident. I agree with the resident's findings and plan as documented. SUBJECTIVE: OBJECTIVE: ASSESSMENT AND PLAN:
[2019-02-01 05:40] LABS: INR 0.98 (0.83-1.09); PROTHROMBIN TIME (PATIENT) 11.6 SEC (9.7-13.0)
[2019-02-01 05:42] LABS: ACTIVATED PTT 31.1 SECONDS (25.2-36.5)
[2019-02-01] MEDS ORDERED: ACETAMINOPHEN 1000 MG/100 ML VIAL (NON FORMULARY) IVPB PRN ×2 (06:07→09:21)
--- NOTE | 2019-02-01 06:49 | PN ---
Teaching Attending Note Name of Resident: Tori Corrales ATTENDING PHYSICIAN STATEMENT I saw and evaluated the patient. I reviewed the resident's note and discussed the case with the resident. I agree with the resident's findings and plan as documented. SUBJECTIVE: 58yo woman with a PMH of HTN, opiate abuse (Percocets) who Presents complaining of periumbilical abdominal pain for the last 2 days, not associated with any nausea or vomiting. She also complains of bright red blood per rectum with straining for defecation. Never had a colonoscopy, no reported hematemesis. OBJECTIVE: Last Vital Signs Temp Pulse Resp BP Pulse Ox 97.9 F 60 20 146/82 98 01/31/19 21:41 01/31/19 21:41 01/31/19 21:41 01/31/19 21:41 01/31/19 21:41 GENERAL: Well developed, well nourished. Awake and alert. No acute distress. HEENT: Normocephalic, atraumatic. PERRLA, EOMI. No conjunctival pallor. Sclera are non- icteric. Moist mucous membranes. Oropharynx is clear. NECK: Supple. Full ROM. No JVD. Carotid pulses 2+ and symmetric, without bruits. No thyromegaly. No lymphadenopathy. CARDIOVASCULAR: Regular rate and rhythm. No murmurs, rubs, or gallops. Distal pulses are 2+ and symmetric. PULMONARY: No evidence of respiratory distress. Lungs clear to auscultation bilaterally. No wheezing, rales or rhonchi. ABDOMINAL: Soft. Non-tender. Non-distended. No rebound or guarding. No organomegaly. Decreased bowel sounds, Mild periumbilical tenderness MUSCULOSKELETAL Normal range of motion at all joints. No bony deformities or tenderness. No CVA tenderness. EXTREMITIES: No cyanosis. No clubbing. No edema. No calf tenderness. SKIN: Warm and dry. Normal capillary refill. No rashes. No jaundice. PSYCHIATRIC: Cooperative. Good eye contact. Appropriate mood and affect. Abnormal Lab Results 02/01/19 02/01/19 00:20 00:20 Monocytes % 14.4 H Anion Gap [address] notable for supraumbilical omental hernia measuring 5 x 4.5 x 3.3cm w/ surrounding edema, concerning for incarceration. Also notes small hiatal hernia , diverticulosis, heterogeneous enlarged uterus. 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 Lactate was wnl. Surgery was consultedDr. Devang aware PT and PTT Type and screen IV fluid hydration Keep n.p.o. IV Tylenol for pain management EKG #Bright red blood per rectumstool for fecal occult was negative. Vital signs were stable, H&H stable. Reported to have hemorrhoids on prior LUPE. Suspect bright red blood per rectum may be secondary to straining from constipation versus hemorrhoids. Patient would benefit from colonoscopy as she has not had one yet Monitor H&H and vital signs closely Stool softener and laxative Opiate cessation SCDs for DVT prophylaxis
[2019-02-01] MEDS ORDERED: LORazepam 2 MG/ML SDV VIAL ONE (08:35)
[2019-02-01] MEDS: LORazepam 2 MG/ML SDV VIAL IVPUSH PRN (08:46)
[2019-02-01] MEDS ORDERED: amLODIPine BESYLATE 10 MG TABLET (FP) PO SCH (10:00)
[2019-02-01] MEDS ORDERED: METHADONE HCL 10 MG TABLET (FOR DETOX USE ONLY) PO ONE (10:00)
--- NOTE | 2019-02-01 10:11 | EKG ---
Test Reason : Blood Pressure : / mmHG Vent. Rate : 053 BPM Atrial Rate : 053 BPM P-R Int : 194 ms QRS Dur : 084 ms QT Int : 482 ms P-R-T Axes : 045 041 074 degrees QTc Int : 452 ms POOR DATA QUALITY, INTERPRETATION MAY BE ADVERSELY AFFECTED SINUS BRADYCARDIA NONSPECIFIC T WAVE ABNORMALITY ABNORMAL ECG WHEN COMPARED WITH ECG OF 22-FEB-2018 07:47, NO SIGNIFICANT CHANGE WAS FOUND Confirmed by AMY EAGLE, MP ([id number]) on 02/01/2019 10:11:17 AM Referred By: Confirmed By:MP REYES MD
[2019-02-01] MEDS ORDERED: METHADONE HCL 10 MG TABLET PO ONE (10:45)
--- NOTE | 2019-02-01 12:35 | CONSULT ---
Consult Consult Specialty:: General Surgery Referred by:: Sujatha Barber Reason for Consultation:: incarcerated ventral hernia - History of Present Illness Chief Complaint: rectal pain, constipation, supraumbilical pain History of Present Illness: 58yo F with HTN, GERD, anxiety, depression, percocet abuse just started detox 3d ago at [facility] on methadone taper (30-25-20-10 today), and opioid-induced constipation, c/o difficulty moving bowels for several days, straining at stool , and having had some blood (occult neg in ER). She presented with constipation as well as supraumbilical pain, which she has had to a much lesser degree intermittently in past that usually eases up eventually, and was found on imaging to have fat-containing supraumbilical hernia, not fully reducible on exam and quite tender. No skin changes, normal wbc, no fevers, no emesis. Surgery was asked to assess. She is seen and examined in bed, relatively comfortable. NPO since last night. Pain is there without touching the area, but not as much. She is getting IV fluids and voiding well. Small BM in ER only, nothing since. - History Source History Provided By: Patient Limitations to Obtaining History: No Limitations - Past Medical History Cardio/Vascular: Yes: HTN Gastrointestinal: Yes: Constipation, GERD Reproductive: Yes: Postmenopausal Psych: Yes: Addictions (percocet - just entered rehab), Anxiety, Depression - Past Surgical History Past Surgical History: Yes: (x2) Additional Surgical History: ganglion cysts off hands - Alcohol/Substance Use Hx Alcohol Use: No History of Substance Use: reports: Cocaine (remote snorting - quit many years ago), Prescription (percocet - used up to 13 daily, started rehab 3d ago) - Smoking History Smoking history: Former smoker Have you smoked in the past 12 months: No If you are a former smoker, when did you quit?: many years ago - Social History ADL: Independent Home Medications - Allergies Allergies/Adverse Reactions: Allergies Allergy/AdvReac Type Severity Reaction Status Date / Time No Known Allergies Allergy Verified 01/31/19 21:45 - Home Medications Home Medications: Ambulatory Orders Amlodipine Besylate 10 mg PO DAILY 03/07/17 Cholecalciferol (Vitamin D3) [Vitamin D3 -] 1,000 unit PO DAILY 03/07/17 Omeprazole 20 mg PO DAILY PRN 03/07/17 Losartan Potassium [Cozaar -] 20 mg PO DAILY 06/30/18 Alprazolam [Xanax] 0.5 mg PO DAILY PRN 10/10/18 Aripiprazole [Abilify -] 10 mg PO PRN PRN 10/10/18 Escitalopram Oxalate [Lexapro -] 20 mg PO PRN PRN 01/28/19 Valacyclovir HCl [Valtrex] 500 mg PO HS 01/28/19 Zolpidem Tartrate [Ambien] 10 mg PO HS PRN 01/28/19 Naloxone HCl [Narcan] 4 mg NS ASDIR PRN #1 spray 01/29/19 Home Medications (free text): pt taking only vit D3, amlodipine regularly. NOT using losartan. uses antacid PRN, abilify and lexapro PRN (stops taking when she feels better) Family Medical History Family History: Unremarkable (noncontributory) Review of Systems - Review of Systems Constitutional: denies: Chills, Fever Eyes: reports: Other (wears bifocals). denies: Recent Change in Vision HENT: denies: Difficult Swallowing, Throat Pain Neck: denies: Swollen Glands, Tenderness Cardiovascular: denies: Chest Pain, Palpitations Respiratory: denies: Cough, SOB Gastrointestinal: reports: Abdominal Pain (with hpi), Constipation. denies: Diarrhea, Nausea, Vomiting Genitourinary: denies: Burning, Dysuria Musculoskeletal: denies: Back Pain, Joint Pain, Muscle Pain Integumentary: denies: Change in Color, Rash Neurological: denies: Dizziness, Headache Psychiatric: reports: Anxiety, Depression Physical Exam Vital Signs: Vital Signs Temperature 97.9 F 02/01/19 10:49 Pulse Rate 68 02/01/19 10:49 Respiratory Rate 16 02/01/19 10:49 Blood Pressure 148/87 02/01/19 10:49 O2 Sat by Pulse Oximetry (%) 98 02/01/19 10:49 Constitutional: Yes: Well Nourished, No Distress, Calm Eyes: Yes: Conjunctiva Clear, EOM Intact HENT: Yes: Atraumatic, Normocephalic Neck: Yes: Supple, Trachea Midline Cardiovascular: Yes: Regular Rate and Rhythm Respiratory: Yes: Regular, CTA Bilaterally Gastrointestinal: Yes: Normal Bowel Sounds, Soft, Hernia (tiny umbilical, reducible; supraumbilical not fully reducible, tender, no overlying skin changes ), Palpable Mass (supraumbilical), Tenderness (supraumbilical and less at umbilicus only). No: Distention, Tenderness, Rebound ...Rectal Exam: Yes: Deferred Renal/: No: CVA Tenderness - Left, CVA Tenderness - Right Musculoskeletal: No: Joint Stiffness, Joint Swelling Extremities: No: Cool, Cyanosis Edema: No Peripheral Pulses WNL: Yes Integumentary: Yes: Tattoos. No: Jaundice, Rash Neurological: Yes: Alert, Oriented Psychiatric: Yes: Alert, Oriented Labs: CBC, BMP 02/01/19 00:20 02/01/19 00:20 CMP Sodium 140 mmol/L (136-145) 02/01/19 00:20 Potassium 4.5 mmol/L (3.5-5.1) 02/01/19 00:20 Chloride 104 mmol/L (98-107) 02/01/19 00:20 Carbon Dioxide 30 mmol/L (21-32) 02/01/19 00:20 Anion Gap 6 MMOL/L (8-16) L 02/01/19 00:20 BUN 12.3 mg/dL (7-18) 02/01/19 00:20 Creatinine 0.9 mg/dL (0.55-1.3) 02/01/19 00:20 Est GFR (CKD-EPI)AfAm 80.55 02/01/19 00:20 Est GFR (CKD-EPI)NonAf 69.50 02/01/19 00:20 Random Glucose 95 mg/dL (74-106) 02/01/19 00:20 Lactic Acid 1.0 mmol/L (0.4-2.0) 02/01/19 02:21 Calcium 9.1 mg/dL (8.5-10.1) 02/01/19 00:20 Total Bilirubin 0.2 mg/dL (0.2-1) 02/01/19 00:20 AST 27 U/L (15-37) 02/01/19 00:20 ALT 23 U/L (13-61) 02/01/19 00:20 Alkaline Phosphatase 86 U/L (45-117) 02/01/19 00:20 Total Protein 6.9 g/dl (6.4-8.2) 02/01/19 00:20 Albumin 3.7 g/dl (3.4-5.0) 02/01/19 00:20 Total Amylase 75 U/L (25-115) 02/01/19 00:20 Lipase 108 U/L (73-393) 02/01/19 00:20 INR, PTT INR 0.98 (0.83-1.09) 02/01/19 05:00 Imaging - Results Cat Scan: Image Reviewed (supraumbilical fat-containing hernia with some stranding in sac, also tiny fat-containing umbilical hernia, +++ stool, no free air or fluid) Problem List - Problems (1) Ventral hernia Assessment/Plan: incarcerated supraumbilical hernia NPO since last night less pain, but tender Discussed with patient risks, benefits and alternatives of laparoscopic possible open ventral and umbilical hernia repair with mesh, including but not limited to bleeding, infection, injury to adjacent structures, recurrent or incisional hernia; alternatives include delayed or no surgery - risks of this include necrosis of hernia contents, persistent hernia, incarceration of bowel with sequelae. Patient desires to proceed with operation - will take to OR for above. Informed consent signed for same. anticipate resuming po postop pain management with alternating tylenol and ibuprofen plan to continue methadone 10mg daily for next couple days, then can conclude taper recommend consulting detox physician in am plan to avoid additional narcotics Code(s): K43.9 - VENTRAL HERNIA WITHOUT OBSTRUCTION OR GANGRENE Qualifiers: Obstruction and gangrene presence: with obstruction but without gangrene Qualified Code(s): K43.6 - Other and unspecified ventral hernia with obstruction , without gangrene (2) Umbilical hernia without obstruction and without gangrene Assessment/Plan: will incorporate repair into laparoscopic patch placement Code(s): K42.9 - UMBILICAL HERNIA WITHOUT OBSTRUCTION OR GANGRENE (3) Periumbilical pain Code(s): R10.33 - PERIUMBILICAL PAIN (4) Anxiety and depression Assessment/Plan: advised pt to take meds daily as prescribed in future Code(s): F41.9 - ANXIETY DISORDER, UNSPECIFIED; F32.9 - MAJOR DEPRESSIVE DISORDER, SINGLE EPISODE, UNSPECIFIED (5) Opioid dependence with withdrawal Assessment/Plan: methadone taper continuing - will plan to hold at 10mg daily for 2-3 days perioperatively to avoid withdrawal and facilitate acute pain management with nonnarcotics ONLY Code(s): F11.23 - OPIOID DEPENDENCE WITH WITHDRAWAL (6) Constipation due to opioid therapy Assessment/Plan: had oral contrast with CT scan, which may facilitate evacuation consider a dose of Relistor if no BM by tomorrow will need bowel regimen postop - daily stool softener PLUS nightly laxative if no BM that day, plenty of fiber (25-30g daily) and plenty of water daily Code(s): K59.03 - DRUG INDUCED CONSTIPATION; T40.2X5A - ADVERSE EFFECT OF OTHER OPIOIDS, INITIAL ENCOUNTER (7) Essential hypertension Assessment/Plan: continuing amlodipine Code(s): I10 - ESSENTIAL (PRIMARY) HYPERTENSION (8) GERD (gastroesophageal reflux disease) Code(s): K21.9 - GASTRO-ESOPHAGEAL REFLUX DISEASE WITHOUT ESOPHAGITIS Qualifiers: Esophagitis presence: without esophagitis Qualified Code(s): K21.9 - Gastro -esophageal reflux disease without esophagitis
[2019-02-01] MEDS ORDERED: BUPIVACAINE HCL/PF 0.5% (5 MG/ML) 30 ML VIAL IJ ONE ×3 (13:45→17:45)
[2019-02-01] MEDS ORDERED: ONDANSETRON 4 MG/2 ML VIAL IVPUSH PRN (14:16)
[2019-02-01] MEDS ORDERED: BUPIVACAINE LIPOSOME/PF (EXPAREL) 266 MG/20 ML VIAL ONE (14:25)
[2019-02-01] MEDS ORDERED: LACTATED RINGERS SOLUTION 1,000 ML IV SCH (14:30)
[2019-02-01] MEDS ORDERED: MIDAZOLAM HCL 5 MG/1 ML Single Dose Vial ONE (14:33)
[2019-02-01] MEDS ORDERED: SUCCINYLCHOLINE CHLORIDE 200 MG/10 ML SYRINGE ONE (14:55)
[2019-02-01] MEDS ORDERED: PROPOFOL 20 ML ONE (14:55)
--- NOTE | 2019-02-01 14:59 | PN ---
Physical Exam: SUBJECTIVE: Patient seen and examined at the bedside. OBJECTIVE: Patient is a 58 year old female with a past medical history of anxiety disorder , depressive disorder, and opioid use disorder (on methadone taper) who presents from [facility] with intermittent abdominal and rectal pain. She reports beginning detox 3 days ago and on the same day began experiencing rectal pain. She reports bowel movements are small and associated with rectal burning and itching. She reports small amounts of stool and blood has been seen on the toilet paper, not in the toilet or in the stool. She also reports central abdominal pain that is intermittent, worse with movement. She was given milk of magnesia without relief. Reports a small bm in the ED, but non since. She also complains of bright red blood per rectum with straining for defecation. imaging: ct abdomen/pelvis 02/01/19: small supraumbilical fat containing hernia with a small amount of fluid and stranding suggestive of incarcinated hernia. mild dilation of the small bowel loops likely in the basis of ileus. enlarged fibroid uterus. Vital Signs Period Temp Pulse Resp BP Sys/Sanchez Pulse Ox Last 24 Hr 97.8 F-98.1 F 55-68 16-20 135-148/80-87 98-98 GENERAL: The patient is awake, alert, and fully oriented, in no acute distress. HEAD: Normal with no signs of trauma. EYES: PERRL, extraocular movements intact, sclera anicteric, conjunctiva clear. No ptosis. ENT: Ears normal, nares patent, oropharynx clear without exudates, moist mucous membranes. NECK: Trachea midline, full range of motion, supple. LUNGS: Breath sounds equal, clear to auscultation bilaterally, no wheezes HEART: Regular rate and rhythm ABDOMEN: Soft, nontender, mildly distended, no pain on palpation of abdomen EXTREMITIES: no edema. NEUROLOGICAL: Normal speech, gait steady PSYCH: Normal mood, normal affect. SKIN: Warm, dry, normal turgor, no rashes or lesions noted Laboratory Results - last 24 hr 01/31/19 02/01/19 02/01/19 23:18 00:20 00:20 WBC 4.6 RBC 3.86 Hgb 11.6 Hct 35.4 MCV 91.9 MCH 30.1 MCHC 32.7 RDW 14.0 Plt Count 206 MPV 8.4 Absolute Neuts (auto) 2.4 Neutrophils % 51.5 Lymphocytes % 31.4 Monocytes % 14.4 H Eosinophils % 1.9 Basophils % 0.8 Nucleated RBC % 0 PT with INR INR PTT (Actin FS) Sodium 140 Potassium 4.5 Chloride 104 Carbon Dioxide 30 Anion Gap 6 L BUN 12.3 Creatinine 0.9 Est GFR (CKD-EPI)AfAm 80.55 Est GFR (CKD-EPI)NonAf 69.50 Random Glucose 95 Lactic Acid Calcium 9.1 Total Bilirubin 0.2 AST 27 ALT 23 Alkaline Phosphatase 86 Total Protein 6.9 Albumin 3.7 Total Amylase Lipase Stool Occult Blood Negative Blood Type Antibody Screen 02/01/19 02/01/19 02/01/19 00:20 02:21 05:00 WBC RBC Hgb Hct MCV MCH MCHC RDW Plt Count MPV Absolute Neuts (auto) Neutrophils % Lymphocytes % Monocytes % Eosinophils % Basophils % Nucleated RBC % PT with INR 11.60 INR 0.98 PTT (Actin FS) 31.1 Sodium Potassium Chloride Carbon Dioxide Anion Gap BUN Creatinine Est GFR (CKD-EPI)AfAm Est GFR (CKD-EPI)NonAf Random Glucose Lactic Acid 1.0 Calcium Total Bilirubin AST ALT Alkaline Phosphatase Total Protein Albumin Total Amylase 75 Lipase 108 Stool Occult Blood Blood Type Antibody Screen 02/01/19 02/01/19 02/01/19 05:00 05:00 08:18 WBC RBC Hgb Hct MCV MCH MCHC RDW Plt Count MPV Absolute Neuts (auto) Neutrophils % Lymphocytes % Monocytes % Eosinophils % Basophils % Nucleated RBC % PT with INR Cancelled INR Cancelled PTT (Actin FS) Sodium Potassium Chloride Carbon Dioxide Anion Gap BUN Creatinine Est GFR (CKD-EPI)AfAm Est GFR (CKD-EPI)NonAf Random Glucose Lactic Acid Calcium Total Bilirubin AST ALT Alkaline Phosphatase Total Protein Albumin Total Amylase Lipase Stool Occult Blood Blood Type O POSITIVE O POSITIVE Antibody Screen Negative Active Medications Generic Name Dose Route Start Last Admin Trade Name Freq PRN Reason Stop Dose Admin Acetaminophen 1,000 mg 02/01/19 09:21 02/01/19 13:41 Ofirmev Injection - IVPB 1,000 mg Q6H PRN Administration Pain Level 4 - 10 Amlodipine Besylate 10 mg 02/01/19 10:00 02/01/19 10:40 Norvasc - PO 10 mg DAILY RICHAR Administration Fentanyl 50 mcg 02/01/19 14:16 Sublimaze Injection - IVPUSH [id number] PRN PAIN-PACU ORDER X 4 DOSES ONLY Sodium Chloride 1,000 mls @ 75 mls/hr 02/01/19 06:00 02/01/19 06:58 Normal Saline - IV 75 mls/hr ASDIR RICHAR Administration Lactated Ringer's 1,000 mls @ 75 mls/hr 02/01/19 14:30 Lactated Ringers Solution IV ASDIR RICHAR Lorazepam 0.5 mg 02/01/19 08:12 02/01/19 08:46 Ativan Injection - IVPUSH 0.5 mg Q6H PRN Administration ANXIETY Methadone HCl 10 mg 02/02/19 10:00 Dolophine - PO 02/05/19 09:59 DAILY RICHAR Ondansetron HCl 4 mg 02/01/19 14:16 Zofran Injection IVPUSH Q6H PRN NAUSEA AND/OR VOMITING ASSESSMENT/PLAN: Problem List - Problems (1) Constipation due to opioid therapy Code(s): K59.03 - DRUG INDUCED CONSTIPATION; T40.2X5A - ADVERSE EFFECT OF OTHER OPIOIDS, INITIAL ENCOUNTER (2) Periumbilical pain Assessment/Plan: CT abdomen- supraumbilical hernia with edema in the herniated fat due to incarceration for surgical intervention with Dr. Siddiqi today Code(s): R10.33 - PERIUMBILICAL PAIN (3) Umbilical hernia without obstruction and without gangrene Code(s): K42.9 - UMBILICAL HERNIA WITHOUT OBSTRUCTION OR GANGRENE (4) Anxiety and depression Assessment/Plan: ativan prn Code(s): F41.9 - ANXIETY DISORDER, UNSPECIFIED; F32.9 - MAJOR DEPRESSIVE DISORDER, SINGLE EPISODE, UNSPECIFIED (5) Depression Code(s): F32.9 - MAJOR DEPRESSIVE DISORDER, SINGLE EPISODE, UNSPECIFIED (6) Opioid dependence with withdrawal Assessment/Plan: on methadone taper Code(s): F11.23 - OPIOID DEPENDENCE WITH WITHDRAWAL Visit type - Emergency Visit Emergency Visit: Yes ED Registration Date: 02/01/19 Care time: The patient presented to the Emergency Department on the above date and was hospitalized for further evaluation of their emergent condition. - New Patient This patient is new to me today: Yes Date on this admission: 02/02/19 - Critical Care Critical Care patient: No - Discharge Referral Referred to [facility] Med P.C.: No
[2019-02-01] MEDS ORDERED: DEXAMETHASONE SOD PHOSPHATE 4 MG/1 ML VIAL ONE (15:10)
[2019-02-01] MEDS ORDERED: ceFAZolin SODIUM 1 GM VIAL ONE (15:10)
[2019-02-01] MEDS ORDERED: ceFAZolin SODIUM 1 GM VIAL IVPB ONE (15:10)
[2019-02-01] MEDS ORDERED: ROCURONIUM BROMIDE 50 MG/5 ML SYRINGE ONE (15:14)
[2019-02-01] MEDS ORDERED: HYDROmorphone HCl 2 MG/ML VIAL ONE (15:37)
[2019-02-01] MEDS ORDERED: LABETALOL HCL 5 MG/1 ML (100MG/20 ML VIAL) ONE (15:50)
[2019-02-01] MEDS ORDERED: KETOROLAC TROMETHAMINE 30 MG/1 ML VIAL ONE (17:49)
[2019-02-01] MEDS ORDERED: BENZOIN/ALOE VERA/STORAX/TOLU 58 ML BOTTLE TP ONE (17:53)
--- NOTE | 2019-02-01 18:16 | OP ---
Operative Note - Note: Operative Date: 02/01/19 Pre-Operative Diagnosis: incarcerated ventral hernia, umbilical hernia Operation: laparoscopic incarcerated ventral hernia and umbilical hernia repair with mesh Findings: umbilical hernia with very little preperitoneal fat, defect ~1cm, closed percutaneously; incarcerated falciform fat in supraumbilical hernia, reduced and partially removed (not sent), defect ~1cm, closed percutaneously; 6"x8" elliptical Ventralight mesh placed with Echo positioning system to cover both defects Implants: 6x8" Bard Ventralight elliptical mesh with Echo PS Post-Operative Diagnosis: Same as Pre-op Surgeon: Rafa Siddiqi Anesthesiologist/POWER NUT RUNNER OPERATOR: Faith Al Anesthesia: General, Local (20 ml 0.5% marcaine (+ OLU block)) Estimated Blood Loss (mls): 10 Fluid Volume Replaced (mls): 1,000 (crystalloid) Operative Report Dictated: Yes
[2019-02-01] MEDS: ACETAMINOPHEN 325 MG TABLET (FP) PO SCH (21:06)
[2019-02-02] MEDS: IBUPROFEN 600 MG TABLET (FP) PO SCH ×2 (00:15→01:03)
[2019-02-02] MEDS: LORazepam 2 MG/ML SDV VIAL IVPUSH PRN (01:39)
[2019-02-02] MEDS: ACETAMINOPHEN 325 MG TABLET (FP) PO SCH ×3 (04:00→14:58)
[2019-02-02] MEDS ORDERED: ONDANSETRON 4 MG/2 ML VIAL IVPUSH PRN (05:34)
[2019-02-02] MEDS ORDERED: LACTATED RINGERS SOLUTION 1,000 ML IV SCH (05:34)
[2019-02-02] MEDS ORDERED: LORazepam 2 MG/ML SDV VIAL IVPUSH PRN (05:34)
[2019-02-02] MEDS ORDERED: IBUPROFEN 600 MG TABLET (FP) PO SCH (06:00)
[2019-02-02] MEDS: amLODIPine BESYLATE 10 MG TABLET (FP) PO SCH ×2 (08:57→09:00)
[2019-02-02 09:09] VITALS: BP 135/89; PULSE 79; TEMP 97.9
[2019-02-02] MEDS ORDERED: oxyCODONE HCL 5 MG TABLET PO PRN (09:52)
--- NOTE | 2019-02-02 09:52 | PN ---
Progress Note (short form) - Note Progress Note: Post op day #1.S/P Laproscopic Ventral/Unmlical hernia repair under GA with TAP block uneventful.Patient stable and c/o lot of pain.She is on NSAI and because she is on Detox for narcotics they are avoiding narcotics.But if her pain is not controlled by NSAID then we may neeed to give her some narcotics.I will order some PRN oxycodone.
[2019-02-02] MEDS ORDERED: METHADONE HCL 10 MG TABLET (FOR DETOX USE ONLY) PO SCH ×2 (10:00)
[2019-02-02] MEDS ORDERED: METHADONE HCL 10 MG TABLET PO SCH (10:00)
[2019-02-02] MEDS ORDERED: LORazepam 1 MG TABLET PO ONE (11:25)
--- NOTE | 2019-02-02 11:41 | PN ---
Physical Exam: SUBJECTIVE: Patient seen and examined at the bedside. tearful, stating she is in pain post surgery and her pain is not being managed. tylenol and motrin not working. overnight she took her IVs out and wanted to leave ama. this morning very upset. OBJECTIVE: spoke to patient at length patient is on metadone taper. will get methadone 10mg this a.m. and for next 3 days if Ok with detox, but may need increased dose for pain control. called dr morrison and sent microblog, awaiting call back in the meantime with give 1mg ativan PO for worsening anxiety. plan to is discharge back to [facility] after clearing with detox physician. consult also placed. will change motrin to toraldol q 6 10mg scheduled with scheduled tylenol. Patient is a 58 year old female with a past medical history of anxiety disorder , depressive disorder, and opioid use disorder (on methadone taper) who presents from [facility] with intermittent abdominal and rectal pain. She reports beginning detox 3 days ago and on the same day began experiencing rectal pain. She reports bowel movements are small and associated with rectal burning and itching. She reports small amounts of stool and blood has been seen on the toilet paper, not in the toilet or in the stool. She also reports central abdominal pain that is intermittent, worse with movement. She was given milk of magnesia without relief. Reports a small bm in the ED, but non since. She also complains of bright red blood per rectum with straining for defecation. imaging: ct abdomen/pelvis 02/01/19: small supraumbilical fat containing hernia with a small amount of fluid and stranding suggestive of incarcinated hernia. mild dilation of the small bowel loops likely in the basis of ileus. enlarged fibroid uterus. Vital Signs Period Temp Pulse Resp BP Sys/Sanchez Pulse Ox Last 24 Hr 97.7 F-98.3 F 61-88 12-18 119-166/66-89 94-100 GENERAL: The patient is awake, alert, tearful, crying stating she is in alot of pain. not yet given methadone (waiting verification from pharmacy) HEAD: Normal with no signs of trauma. EYES: PERRL, extraocular movements intact, sclera anicteric, conjunctiva clear. No ptosis. ENT: Ears normal, nares patent, oropharynx clear without exudates, moist mucous membranes. NECK: Trachea midline, full range of motion, supple. LUNGS: Breath sounds equal, clear to auscultation bilaterally, no wheezes HEART: Regular rate and rhythm ABDOMEN: s/p incarcerated hernia repair, dressing c/d/i. EXTREMITIES: no edema. - mild deformity of left foot s/p surgery a few years ago. NEUROLOGICAL: Normal speech, gait steady PSYCH: crying, upset Active Medications Generic Name Dose Route Start Last Admin Trade Name Freq PRN Reason Stop Dose Admin Acetaminophen 650 mg 02/02/19 09:00 02/02/19 08:57 Tylenol - PO 650 mg Q6H RICHAR Administration Amlodipine Besylate 10 mg 02/02/19 10:00 02/02/19 09:00 Norvasc - PO Not Given DAILY RICHAR Lactated Ringer's 1,000 mls @ 75 mls/hr 02/02/19 05:34 02/02/19 05:36 Lactated Ringers Solution IV Not Given ASDIR RICHAR Ketorolac Tromethamine 10 mg 02/02/19 12:00 Toradol PO 02/07/19 11:59 Q6HPO RICHAR Lorazepam 0.5 mg 02/02/19 05:34 Ativan Injection - IVPUSH Q6H PRN ANXIETY Methadone HCl 10 mg 02/02/19 10:00 02/02/19 11:08 Dolophine - PO 02/05/19 09:59 10 mg DAILY RICHAR Administration Ondansetron HCl 4 mg 02/02/19 05:34 Zofran Injection IVPUSH Q6H PRN NAUSEA AND/OR VOMITING ASSESSMENT/PLAN: Problem List - Problems (1) Incarcerated hernia Assessment/Plan: CT abdomen- supraumbilical hernia with edema in the herniated fat due to incarceration POD #1 incarcerated hernia repair on methadone taper, patient was scheduled for methadone 5 but will give methadone 10 for pain control. further methadone taper per detox physician ( consulted) also on scheduled tylenol and toradol surgery protocol: early ambuation, incentive spirometer, bowel regimen, monitor surgery sites. per surgery, can be [place] [facility] Code(s): K46.0 - UNSP ABDOMINAL HERNIA WITH OBSTRUCTION, WITHOUT GANGRENE (2) Constipation due to opioid therapy Assessment/Plan: monitor output, no distention on exam. tolerating meals, no nausea. Code(s): K59.03 - DRUG INDUCED CONSTIPATION; T40.2X5A - ADVERSE EFFECT OF OTHER OPIOIDS, INITIAL ENCOUNTER (3) Periumbilical pain Assessment/Plan: CT abdomen- supraumbilical hernia with edema in the herniated fat due to incarceration POD #1 incarcerated hernia repair Code(s): R10.33 - PERIUMBILICAL PAIN (4) Umbilical hernia without obstruction and without gangrene Code(s): K42.9 - UMBILICAL HERNIA WITHOUT OBSTRUCTION OR GANGRENE (5) Anxiety and depression Assessment/Plan: anxious today in the setting of recent surgery, verbalizes fear of having increased pain will give ativan 1mg x 1 now Code(s): F41.9 - ANXIETY DISORDER, UNSPECIFIED; F32.9 - MAJOR DEPRESSIVE DISORDER, SINGLE EPISODE, UNSPECIFIED (6) Depression Code(s): F32.9 - MAJOR DEPRESSIVE DISORDER, SINGLE EPISODE, UNSPECIFIED (7) Opioid dependence with withdrawal Assessment/Plan: on methadone taper, consult place with detox physician will d/c to [facility] if cleared by detox physician patient will need pain managed at facility Code(s): F11.23 - OPIOID DEPENDENCE WITH WITHDRAWAL Visit type - Emergency Visit Emergency Visit: Yes ED Registration Date: 02/01/19 Care time: The patient presented to the Emergency Department on the above date and was hospitalized for further evaluation of their emergent condition. - New Patient This patient is new to me today: No - Critical Care Critical Care patient: No - Discharge Referral Referred to [facility] Med P.C.: No
[2019-02-02] MEDS ORDERED: KETOROLAC TROMETHAMINE 10 MG TABLET PO SCH (12:00)
[2019-02-02] MEDS ORDERED: PT OWN MED DRAWER 7, Y5N ONE (12:35)
--- NOTE | 2019-02-02 12:59 | DS ---
Physical Exam: SUBJECTIVE: Patient seen and examined at the bedside. tearful, stating she is in pain post surgery and her pain is not being managed. tylenol and motrin not working. overnight she took her IVs out and wanted to leave ama. this morning very upset. OBJECTIVE: spoke to patient at length patient is on metadone taper. will get methadone 10mg this a.m. and for next 3 days if Ok with detox. I discussed with Dr. Knott who is in agreement with the methadone 10mg for pain control. Patient also on scheduled toradol and tylenol. Patient given 1mg ativan PO today for worsening anxiety. plan to is discharge back to [facility] today, she has been accepted by detox physician. will change motrin to toraldol q 6 10mg scheduled with scheduled tylenol. surgery notes reviewed. Patient is a 58 year old female with a past medical history of anxiety disorder , depressive disorder, and opioid use disorder (on methadone taper) who presents from [facility] with intermittent abdominal and rectal pain. She reports beginning detox 3 days ago and on the same day began experiencing rectal pain. She reports bowel movements are small and associated with rectal burning and itching. She reports small amounts of stool and blood has been seen on the toilet paper, not in the toilet or in the stool. She also reports central abdominal pain that is intermittent, worse with movement. She was given milk of magnesia without relief. Reports a small bm in the ED, but non since. She also complains of bright red blood per rectum with straining for defecation. imaging: ct abdomen/pelvis 02/01/19: small supraumbilical fat containing hernia with a small amount of fluid and stranding suggestive of incarcinated hernia. mild dilation of the small bowel loops likely in the basis of ileus. enlarged fibroid uterus. Vital Signs Period Temp Pulse Resp BP Sys/Sanchez Pulse Ox Last 24 Hr 97.7 F-98.3 F 61-88 12-18 119-166/66-89 94-100 PHYSICAL EXAM GENERAL: The patient is awake, alert, tearful, crying stating she is in alot of pain. not yet given methadone (waiting verification from pharmacy) HEAD: Normal with no signs of trauma. EYES: PERRL, extraocular movements intact, sclera anicteric, conjunctiva clear. No ptosis. ENT: Ears normal, nares patent, oropharynx clear without exudates, moist mucous membranes. NECK: Trachea midline, full range of motion, supple. LUNGS: Breath sounds equal, clear to auscultation bilaterally, no wheezes HEART: Regular rate and rhythm ABDOMEN: s/p incarcerated hernia repair, dressing c/d/i. EXTREMITIES: no edema. - mild deformity of left foot s/p surgery a few years ago. NEUROLOGICAL: Normal speech, gait steady PSYCH: crying, upset LABS HOSPITAL COURSE: Date of Admission:02/01/19 Date of Discharge: 02/02/19 Minutes to complete discharge: 60 Discharge Summary Problems reviewed: Yes Reason For Visit: VENTRAL HERNIA Current Active Problems Constipation due to opioid therapy (Acute) Incarcerated hernia (Acute) Periumbilical pain (Acute) Umbilical hernia without obstruction and without gangrene (Acute) Ventral hernia (Acute) Condition: Stable - Instructions Diet, Activity, Other Instructions: Postoperative instructions: You had a laparoscopic incarcerated ventral and umbilical hernia repairs with mesh on 02/01/[address] Rafa Siddiqi of [facility]. Activity: Resume your usual activities gradually, but no heavy exertion or lifting more than 10-15 pounds for 4-6 weeks. Remove dressings 48 hours after surgery; sticky tapes underneath will fall off by themselves. You may shower daily then, with the sticky tapes, just pat the incision areas dry. No bath or swimming until skin incisions have healed. Eat lightly at first, but advance to your usual diet as tolerated. Pain: For pain, you may use and alternate Tylenol (acetaminophen) 1-2 pills and/ or ibuprofen 200 mg (1-3 pills) every 6 hours each as needed; this means that you can take one OR the other at 3-hour intervals. Do not take more than 4000mg of acetaminophen in a day. Take medications as prescribed or indicated on the labeling. Follow-up: Call [phone] to make your postop appointment (for Tuesday 02/13) . Clinic is held in the [facility] on the fifth floor of [facility]. Call Dr. Siddiqi's office at [phone] if you have: * increasing pain not responsive to pain medication * fever of 101F or higher * vomiting * unusual or increasing bleeding or drainage from wounds * increasing redness or swelling at wound sites Also, see your primary medical doctor within 1-2 weeks. Referrals: Rafa Siddiqi MD [Staff Physician] - Yo Horn [Primary Care Provider] - Disposition: HALF-WAY FACILITY - Home Medications Comprehensive Discharge Medication List: Ambulatory Orders Amlodipine Besylate 10 mg PO DAILY 03/07/17 Cholecalciferol (Vitamin D3) [Vitamin D3 -] 1,000 unit PO DAILY 03/07/17 Omeprazole 20 mg PO DAILY PRN 03/07/17 Losartan Potassium [Cozaar -] 20 mg PO DAILY 06/30/18 Aripiprazole [Abilify -] 10 mg PO PRN PRN 10/10/18 Escitalopram Oxalate [Lexapro -] 20 mg PO PRN PRN 01/28/19 Valacyclovir HCl [Valtrex] 500 mg PO HS 01/28/19 Zolpidem Tartrate [Ambien] 10 mg PO HS PRN 01/28/19 Naloxone HCl [Narcan] 4 mg NS ASDIR PRN #1 spray 01/29/19 Acetaminophen [Tylenol .Regular Strength -] 650 mg PO Q6H tablet 02/02/19 Ketorolac Tromethamine [Toradol -] 10 mg PO Q6HPO tablet 02/02/19 Problem List - Problems (1) Incarcerated hernia Assessment/Plan: CT abdomen- supraumbilical hernia with edema in the herniated fat due to incarceration POD #1 incarcerated hernia repair on methadone taper, patient was scheduled for methadone 5 but will give methadone 10 for pain control. further methadone taper per detox physician ( consulted) also on scheduled tylenol and toradol surgery protocol: early ambuation, incentive spirometer, bowel regimen, monitor surgery sites. per surgery, can be d/c to [facility] with follow up Code(s): K46.0 - UNSP ABDOMINAL HERNIA WITH OBSTRUCTION, WITHOUT GANGRENE (2) Constipation due to opioid therapy Assessment/Plan: monitor output, no distention on exam. tolerating meals, no nausea. Code(s): K59.03 - DRUG INDUCED CONSTIPATION; T40.2X5A - ADVERSE EFFECT OF OTHER OPIOIDS, INITIAL ENCOUNTER (3) Periumbilical pain Assessment/Plan: CT abdomen- supraumbilical hernia with edema in the herniated fat due to incarceration POD #1 incarcerated hernia repair Code(s): R10.33 - PERIUMBILICAL PAIN (4) Umbilical hernia without obstruction and without gangrene Code(s): K42.9 - UMBILICAL HERNIA WITHOUT OBSTRUCTION OR GANGRENE (5) Anxiety and depression Assessment/Plan: anxious today in the setting of recent surgery, verbalizes fear of having increased pain will give ativan 1mg x 1 now Code(s): F41.9 - ANXIETY DISORDER, UNSPECIFIED; F32.9 - MAJOR DEPRESSIVE DISORDER, SINGLE EPISODE, UNSPECIFIED (6) Depression Code(s): F32.9 - MAJOR DEPRESSIVE DISORDER, SINGLE EPISODE, UNSPECIFIED (7) Opioid dependence with withdrawal Assessment/Plan: on methadone taper, d/c to [facility] Code(s): F11.23 - OPIOID DEPENDENCE WITH WITHDRAWAL This patient is new to me today: Yes Date on this admission: 02/02/19 Emergency Visit: No Critical Care patient: No - Discharge Referral Referred to [facility] No
--- NOTE | 2019-02-02 16:49 | PN ---
Progress Note, Physician History of Present Illness: s/p lap incarcerated ventral hernia repair and umbilical hernia repairs with mesh pt ambulating, eating, no BM yet + flatus voiding ok pain is not optimally controlled, but she moves well [facility] - Current Medication List Current Medications: Active Medications Acetaminophen (Tylenol -) 650 mg PO Q6H [facility] Last Admin: 02/02/19 14:58 Dose: Not Given Amlodipine Besylate (Norvasc -) 10 mg PO DAILY [facility] Last Admin: 02/02/19 09:00 Dose: Not Given Lactated Ringer's (Lactated Ringers Solution) 1,000 mls @ 75 mls/hr IV ASDIR [facility] Last Admin: 02/02/19 05:36 Dose: Not Given Ketorolac Tromethamine (Toradol) 10 mg PO Q6HPO [facility] Stop: 02/07/19 11:59 Last Admin: 02/02/19 14:42 Dose: Not Given Lorazepam (Ativan Injection -) 0.5 mg IVPUSH Q6H PRN PRN Reason: ANXIETY Methadone HCl (Dolophine -) 10 mg PO DAILY [facility] Stop: 02/05/19 09:59 Last Admin: 02/02/19 11:08 Dose: 10 mg Ondansetron HCl (Zofran Injection) 4 mg IVPUSH Q6H PRN PRN Reason: NAUSEA AND/OR VOMITING - Objective Vital Signs: Vital Signs Temperature 97.9 F 02/02/19 08:56 Pulse Rate 79 02/02/19 08:56 Respiratory Rate 17 02/02/19 08:56 Blood Pressure 135/89 02/02/19 08:56 O2 Sat by Pulse Oximetry (%) 100 02/02/19 08:58 Constitutional: Yes: Well Nourished, No Distress, Calm Eyes: Yes: Conjunctiva Clear, EOM Intact HENT: Yes: Atraumatic, Normocephalic Gastrointestinal: Yes: Soft, Distention (some), Tenderness (upper abdomen near subxiphoid incision mainly), Tenderness, Epigastrium Extremities: No: Cool, Cyanosis Integumentary: Yes: Incision (x3 dressed plus puncture sites at umbilicus and above). No: Jaundice, Rash Wound/Incision: Yes: Dressing Dry and Intact (x3), Draining (supraumbilical puncture site with serosang drops), Other (skin prep and steris placed over supraumbilical site with gauze and tegaderm). No: Dressing Removed Neurological: Yes: Alert, Oriented. No: Unsteady Gait Labs: no new labs Problem List - Problems (1) Ventral hernia Assessment/Plan: POD1 s/p laparoscopic incarcerated supraumbilical hernia repair with umbilical hernia repair incorporated under mesh pain management with alternating tylenol and ibuprofen - pt only took twice, states "they don't work" continuing methadone 10mg daily got benzo as well incisional dressings c/d/i supraumbilical site with few drops of serosang fluid through dermabond steris and dressing placed to remove dressings tomorrow f/u 02/13 instructions in d/c plan to return to [facility] today defer pain meds stronger than nonnarcotics to [facility] physicians pt understands no narcotics will be written by me after discharge Code(s): K43.9 - VENTRAL HERNIA WITHOUT OBSTRUCTION OR GANGRENE Qualifiers: Obstruction and gangrene presence: with obstruction but without gangrene Qualified Code(s): K43.6 - Other and unspecified ventral hernia with obstruction , without gangrene (2) Umbilical hernia without obstruction and without gangrene Assessment/Plan: repaired at OR Code(s): K42.9 - UMBILICAL HERNIA WITHOUT OBSTRUCTION OR GANGRENE (3) Periumbilical pain Assessment/Plan: resolved - now incisional pain Code(s): R10.33 - PERIUMBILICAL PAIN (4) Anxiety and depression Code(s): F41.9 - ANXIETY DISORDER, UNSPECIFIED; F32.9 - MAJOR DEPRESSIVE DISORDER, SINGLE EPISODE, UNSPECIFIED (5) Opioid dependence with withdrawal Code(s): F11.23 - OPIOID DEPENDENCE WITH WITHDRAWAL (6) Constipation due to opioid therapy Assessment/Plan: had oral contrast with CT scan, which may facilitate evacuation will need bowel regimen postop - daily stool softener PLUS nightly laxative if no BM that day, plenty of fiber (25-30g daily) and plenty of water daily Code(s): K59.03 - DRUG INDUCED CONSTIPATION; T40.2X5A - ADVERSE EFFECT OF OTHER OPIOIDS, INITIAL ENCOUNTER (7) Essential hypertension Code(s): I10 - ESSENTIAL (PRIMARY) HYPERTENSION (8) GERD (gastroesophageal reflux disease) Code(s): K21.9 - GASTRO-ESOPHAGEAL REFLUX DISEASE WITHOUT ESOPHAGITIS Qualifiers: Esophagitis presence: without esophagitis Qualified Code(s): K21.9 - Gastro -esophageal reflux disease without esophagitis
--- NOTE | 2019-02-13 18:58 | OP ---
DATE OF OPERATION: 02/01/2019 PREOPERATIVE DIAGNOSIS: Incarcerated ventral hernia and umbilical hernia. POSTOPERATIVE DIAGNOSIS: Incarcerated ventral hernia and umbilical hernia. PROCEDURE: Laparoscopic incarcerated ventral hernia and nonincarcerated umbilical hernia repairs with mesh. SURGEON: Rafa Siddiqi MD ANESTHESIA: General endotracheal and TAP block along with local, 20 mL of 0.5% Marcaine. ESTIMATED BLOOD LOSS: 10 mL FLUIDS: 1 L of crystalloid. SPECIMENS: None sent. IMPLANTS: A 6 x 8-inch Bard Ventralight elliptical mesh with Echo positioning system. FINDINGS: Umbilical hernia with very little preperitoneal fat, 1-cm defect closed percutaneously. Supraumbilical hernia with incarcerated falciform fat, which was completely reduced and partially removed but not sent; 1-cm defect closed percutaneously, and the mesh used for reinforcement over both defects. DISPOSITION: Stable and extubated to PACU. INDICATIONS FOR PROCEDURE: Patient is a 58-year-old female with hypertension, reflux, anxiety, depression and a history of Percocet abuse, who had just started detoxification treatment 3 days prior including a methadone taper, also suffering from opioid-induced constipation. She had had difficulty moving her bowels for several days, had been straining at stool, and presented with constipation as well as supraumbilical pain. She was found in the emergency room on CT imaging to have a fat-containing supraumbilical hernia which was not fully reducible on exam and also quite tender. There were no skin changes. She had a normal white count. No fevers. No emesis. Also noted to have a small reducible umbilical hernia. Risks, benefits, and alternatives of laparoscopic, possible open, incarcerated ventral and umbilical hernia repair with mesh were discussed with the patient, including but not limited to bleeding , infection, injury to adjacent structures, recurrent or incisional hernia, and alternatives including delayed or no surgery with the potential risks of necrosis of the hernia contents, persistent hernia, incarceration of bowel with the sequelae thereof. The patient desired to proceed with operation and signed informed consent for the same and is now brought to the OR for this procedure. OPERATIVE TECHNIQUE: Prior to coming into the operating room, Anesthesia performed a TAP block to minimize the need for postop analgesia. The patient was then brought to the operating room and laid supine on the operating table. Sequential compression devices were applied to bilateral lower extremities and 1 g of Ancef was given as preoperative antibiotic. After induction and intubation by Anesthesia, the patient's abdomen was prepped and draped in sterile fashion. A small midline incision was made in the subxiphoid area with a scalpel and carried into subcutaneous tissues with electrocautery, until the abdominal wall fascia was identified and scored to be divided with electrocautery. The posterior sheath and peritoneum were entered bluntly with the tip of a clamp, and a fingertip inserted to ensure entry into the abdominal cavity. The falciform fat was palpable underneath the incision, but there was a clear path through into the abdominal cavity. A stay suture of 0 Vicryl in [id number] fashion was placed in the fascia for later closure, and the Josiah trocar introduced directly into the abdominal cavity and secured in place with the balloon. The abdomen was insufflated with carbon dioxide, and a 30-degree, 5-mm scope inserted to inspect the abdominal cavity. The site of the umbilical hernia was immediately apparent with only small bit of reducible preperitoneal fat noted at the site. The inferior aspect of the falciform ligament, however, appeared to be the source of the fat contained in the supraumbilical hernia. Two additional 5-mm ports were placed in the left and right lateral sides of the abdomen under direct vision, and the camera switched between these 3 ports as needed throughout the case. Hot scissors were used to take down some of the adhesions of the omental fat to the anterior abdominal wall in a few places that would have interfered with placement of the mesh. Graspers were used to begin serially reducing the fat from the supraumbilical hernia site along with external pressure on the hernia, in an attempt to completely retrieve all the fat from the hernia back into the abdominal cavity. This took some time, as the fascial opening appeared to be quite small, but ultimately all the fat contained in the supraumbilical hernia was indeed reduced. Several portions of the fat came completely free and were set aside in the abdomen to be retrieved toward the end of the case, with larger graspers, through the Josiah port. Hemostasis was achieved where needed with the [place] or scissors attached to cautery. The supraumbilical hernia defect, once it had been fully reduced of fat, was noted to be approximately 1 cm in diameter, as was the umbilical hernia. Tiny stab wounds with a scalpel were created directly over these defects in the skin, and a suture passer with 0 Vicryl suture used to close each of them individually and percutaneously, in [id number] fashion. The pneumoperitoneum was reduced during this portion of the procedure. Once both defects had been closed, a 6 x 8-inch elliptical Ventralight mesh with the Echo positioning system was chosen to cover both defects. The defects themselves were approximately 4 cm apart. The mesh itself was ultimately centered just below the supraumbilical defect, where the stab wound from the percutaneous closure could be used to retrieve the positioning system tubing. The mesh itself was dipped in saline according to electrical apprentice's instructions, rolled up and inserted through the Josiah trocar under direct vision. Again, the positioning balloon tubing was retrieved with a suture passer from the supraumbilical stab hole and the balloon inflated, according to electrical apprentice's instructions. A grasper was used to position the mesh on its long axis along the midline. Additional falciform fat had been taken down from the superior aspect of the anterior abdominal wall with the hot scissors, ensuring a clear enough surface for the mesh to lie flat against the underside of the abdominal wall. The absorbable tacker was then used to place an outer crown of tacks to secure the mesh in place. This was accomplished by moving both the camera and the tacker between the 3 ports as necessary. Once an outer crown had been placed, a grasper was used through the Josiah trocar site to remove the deflated balloon portion from the mesh. An inner crown of tacks was also placed. Final positioning appeared to be very good and the entire field was inspected and noted to be hemostatic with no bleeding from any fat or other structures. The portions of removed fat from the hernia site were extracted using large stone graspers through the Josiah port. The two 5-mm ports were then removed under direct vision, and the Josiah trocar also removed from the abdominal cavity, which was exsufflated of carbon dioxide. The stay suture at the subxiphoid port was tied to close the defect there. Hemostasis was achieved in the port sites with electrocautery where needed. Local anesthetic was infiltrated into all 3 port sites. Skin was then closed with 4-0 Vicryl subcuticular sutures, including a running at the subxiphoid. Dermabond was used over the 2 stab holes at the umbilical and supraumbilical sites. Benzoin and Steri-Strips were applied over the 3 incisions, and dressings of gauze and Tegaderm placed over these. Counts were correct at the end of the procedure. The patient was then awakened and extubated by Anesthesia, moved back to a stretcher and taken to the recovery room in stable condition having tolerated the procedure well. Rafa Siddiqi M.D. [id number] MTDD
== END 2019-02-02 18:05 | disposition home or self-care (01) | DRG 227 ==
LOC: JER 21:38 → JERBED 02-01 03:54 → J6S 02-01 09:27
PROVIDERS: ADMIT Internal Medicine; ATTEND Nurse Practitioner Family
PROC: 0WUF4JZ Supplement Abdominal Wall with Synthetic Substitute, Percutaneous Endoscopic Approach (ICD-10-PCS; 2019-02-01)
PROC: 0WUF4JZ Supplement Abdominal Wall with Synthetic Substitute, Percutaneous Endoscopic Approach (ICD-10-PCS; principal; 2019-02-01 14:00)
DX: K43.6 Other and unspecified ventral hernia with obstruction, without gangrene (principal); K42.9 Umbilical hernia without obstruction or gangrene; I10 Essential (primary) hypertension; F32.9 Major depressive disorder, single episode, unspecified; F41.9 Anxiety disorder, unspecified; K64.4 Residual hemorrhoidal skin tags; K62.5 Hemorrhage of anus and rectum; M47.896 Other spondylosis, lumbar region; M48.061 Spinal stenosis, lumbar region without neurogenic claudication; K21.9 Gastro-esophageal reflux disease without esophagitis; K59.03 Drug induced constipation; T40.2X5A Adverse effect of other opioids, initial encounter; F11.23 Opioid dependence with withdrawal
CPT/HCPCS: 36415; 71045-TC-FY; 74019-TC-FY; 74177-TC; 80053; 82150; 82272; 83605; 83690; 85025; 85610; 85730; 86850; 86900; 86901; 93005; 93010; 94760; 99285-25; J0131; J7030

== ENCOUNTER 2019-02-02 17:45 | Inpatient (IN) | payer OTHER ==
[2019-02-02 18:35] VITALS: BMI 23.7
--- NOTE | 2019-02-02 19:41 | HP ---
CIWA Score - Admission Criteria [facility] Guidelines: Admission for Medically Managed Detox: Requires at least one of the followin. CIWA greater than 12 2. Seizures within the past 24 hours 3. Delirium tremens within the past 24 hours 4. Hallucinations within the past 24 hours 5. Acute intervention needed for co occurring medical disorder 6. Acute intervention needed for co occurring psychiatric disorder 7. Severe withdrawal that cannot be handled at a lower level of care (continued vomiting, continued diarrhea, abnormal vital signs) requiring intravenous medication and/or fluids 8. Admitting History and Physical - Past Medical History Cardiovascular: Yes: HTN Gastrointestinal: Yes: Constipation, GERD Psych: Yes: Addictions (percocet - just entered rehab), Anxiety, Depression - Past Surgical History Past Surgical History: Yes: (x2) - Smoking History Smoking history: Former smoker Have you smoked in the past 12 months: No If you are a former smoker, when did you quit?: many years ago - Alcohol/Substance Use Hx Alcohol Use: No History of Substance Use: reports: Cocaine (remote snorting - quit many years ago), Prescription (percocet - used up to 13 daily, started rehab 3d ago) - Social History ADL: Independent Admission [facility] Chief Complaint: Here to complete my detox. Allergies/Adverse Reactions: Allergies Allergy/AdvReac Type Severity Reaction Status Date / Time No Known Allergies Allergy Verified 02/02/19 18:24 History of Present Illness: 58 yo was admitted to detox on 01/28/19 w/ opioid withdrawal symptoms. Patient w/ hx percocet use disorder and started on methadone taper. During course of treatment patient w/ c/o abdominal pain and abnormal BM. MHHx: Depression and anxiety. Denies thoughts of harming self or others. Plan: Patient will return to complete detox x 3 days. H&P: see [facility] on 01/28/19 and [facility] on 02/01/19. Hospital Course and Discharge notes from [facility] reviewed. [facility] Dx: VENTRAL HERNIA WITHOUT OBSTRUCTION OR GANGRENE s/p laparoscopic incarcerated supraumbilical hernia repair with umbilical hernia repair incorporated under mesh incisional dressings w/ dermabond To remove dressings tomorrow f/u 02/13 Activity: Resume your usual activities gradually, but no heavy exertion or lifting more than 10-15 pounds for 4-6 weeks. Remove dressings 48 hours after surgery; sticky tapes underneath will fall off by themselves. You may shower daily then, with the sticky tapes, just pat the incision areas dry. No bath or swimming until skin incisions have healed. Eat lightly at first, but advance to your usual diet as tolerated. Based on review will give methadone 10 mg on 02/03 and then Methadone 5 mg on x 2 days. Will prescribe Miralax to improve bowel evacuation and also start on colace. Exam Limitations: Other (Abdominal tenderness) - Ebola screening Have you traveled outside of the country in the last 21 days: No (N) Have you had contact with anyone from an Ebola affected area: No Do you have a fever: No Patient History - Patient Medical History Hx Anemia: No Hx Asthma: No Hx Chronic Obstructive Pulmonary Disease (COPD): No Hx Cancer: No Hx Cardiac Disorders: No Hx Congestive Heart Failure: No Hx Hypertension: Yes Hx Hypercholesterolemia: No Hx Pacemaker: No HX Cerebrovascular Accident: No Hx Seizures: No Hx Dementia: No Hx Diabetes: No Hx Gastrointestinal Disorders: Yes (Hx of GERD) Hx Liver Disease: No Hx Genitourinary Disorders: No Hx Sexually Transmitted Disorders: No Hx Renal Disease (ESRD): No Hx Thyroid Disease: No Hx Human Immunodeficiency Virus (HIV): No (last 10/06 negative) Hx Hepatitis C: No Hx Depression: Yes Hx Suicide Attempt: No Hx Bipolar Disorder: No Hx Schizophrenia: No - Patient Surgical History Past Surgical History: No Hx Neurologic Surgery: No Hx Cataract Extraction: No Hx Cardiac Surgery: No Hx Lung Surgery: No Hx Breast Surgery: No Hx Breast Biopsy: No Hx Abdominal Surgery: No Hx Appendectomy: No Hx Cholecystectomy: No Hx Genitourinary Surgery: No Hx Section: Yes Hx Orthopedic Surgery: No Other Surgical History: SURGERY FOR GANGLiON CYST OF RIGHT HAND in 2017 Anesthesia Reaction: No - PPD History Previous Implant?: Yes Documented Results: Negative w/proof Implanted On Prior [facility] Admission?: Yes Date: 07/02/18 Results: 0 mm PPD to be Administered?: No - Smoking Cessation Smoking history: Former smoker Have you smoked in the past 12 months: No If you are a former smoker, when did you quit?: many years ago Hx Chewing Tobacco Use: No Initiated information on smoking cessation: No - Substance & Tx. History Hx Alcohol Use: No Hx Substance Use: Yes Substance Use Type: Opiates (Percocets) Hx Substance Use Treatment: Yes (detox) - Substances abused Other Other (specify): percocet Substance route: Oral Frequency: Daily Amount used: (14-15) 10-325mg Age of first use: 56 Date of last use: 01/28/19 Admission Physical Exam [facility] - Vital Signs Vital Signs: Vital Signs - 24 hr 02/02/19 02/02/19 18:29 18:52 Temperature 98.7 F 98.7 F Pulse Rate 76 76 Respiratory 20 20 Rate Blood Pressure 168/108 H 168/108 H - Physical General Appearance: Yes: Mild Distress, Anxious Respiratory: Yes: Lungs Clear, Normal Breath Sounds, No Respiratory Distress Cardiology: Yes: Regular Rhythm, Regular Rate, S1, S2 Abdominal: Yes: Normal Bowel Sounds, Soft, Tenderness (Abdominal tenderness.), Surgical Scar (4 incisional sites w/ dressings intact.) - Diagnostic (1) Constipation Current Visit: Yes Status: Chronic Qualifiers: Constipation type: unspecified constipation type Qualified Code(s): K59.00 - Constipation, unspecified (2) History of umbilical hernia repair Current Visit: Yes Status: Acute (3) Opioid dependence with withdrawal Current Visit: Yes Status: Acute (4) Essential hypertension Current Visit: Yes Status: Chronic (5) Vitamin D deficiency Current Visit: No Status: Acute (6) GERD (gastroesophageal reflux disease) Current Visit: Yes Status: Chronic Qualifiers: Esophagitis presence: without esophagitis Qualified Code(s): K21.9 - Gastro -esophageal reflux disease without esophagitis Cleared for Admission [facility] - Detox or Rehab [facility] Level of Care: Medically Managed Detox Regimen/Protocol: Methadone Claeared for Rehab Admission: No Breathalyzer - Breathalyzer Breathalyzer: 0 Urine Drug Screen - Test Device Lot number: [id number] Expiration date: 09/17/20 - Control Is test valid?: Yes - Results Drug screen NEGATIVE: No Urine drug screen results: MTD-Methadone, BZO-Benzodiazepines Inpatient Rehab Admission - Rehab Decision to Admit Inpatient rehab admission?: No
[2019-02-02] MEDS ORDERED: MENTHOL/PHENOL 1 EACH UD MM PRN (20:01)
[2019-02-02] MEDS ORDERED: IBUPROFEN 400 MG TABLET (FP) PO PRN (20:01)
[2019-02-02] MEDS ORDERED: MAG HYDROX/AL HYDROX/SIMETH 30 ML UNIT-DOSE CUP PO PRN (20:01)
[2019-02-02] MEDS ORDERED: MAGNESIUM CITRATE 300 ML BOTTLE PO PRN (20:01)
[2019-02-02] MEDS ORDERED: MAGNESIUM HYDROX 2400MG/30ML ORAL SUSPENSION 30 ML CUP PO PRN (20:01)
[2019-02-02] MEDS ORDERED: ACETAMINOPHEN 325 MG TABLET (FP) PO PRN (20:01)
[2019-02-02] MEDS ORDERED: BISMUTH SUBSALICYLATE 524 MG/30 ML UD PO PRN (20:01)
[2019-02-02] MEDS ORDERED: COLLOIDAL OATMEAL 1 BAR EACH TP PRN (20:28)
[2019-02-02] MEDS: diazePAM 5 MG TABLET PO PRN (21:34)
[2019-02-02] MEDS: DOCUSATE SODIUM 100 MG CAPSULE (FP) PO SCH (22:22)
[2019-02-02] MEDS: MELATONIN 5 MG TABLETS PO PRN (22:22)
[2019-02-02] MEDS: MINERAL OIL/PETROLAT/WATER TOPICAL CREAM 113 GM JAR TP SCH (22:23)
[2019-02-02] MEDS: THIAMINE HCL 100 MG TABLET (FP) PO SCH (22:23)
[2019-02-02] MEDS: METHOCARBAMOL 500 MG TABLET PO PRN (22:23)
[2019-02-02] MEDS: POLYETHYLENE GLYCOL 3350 119 GM BTL PO SCH (22:25)
[2019-02-03] MEDS: IBUPROFEN 600 MG TABLET (FP) PO PRN ×2 (01:57→18:29)
[2019-02-03] MEDS: METHOCARBAMOL 500 MG TABLET PO PRN ×3 (05:41→22:18)
[2019-02-03] MEDS: DOCUSATE SODIUM 100 MG CAPSULE (FP) PO SCH ×3 (05:41→22:16)
[2019-02-03] MEDS: ACETAMINOPHEN 325 MG TABLET (FP) PO PRN ×2 (05:41→22:17)
[2019-02-03] MEDS: diazePAM 5 MG TABLET PO PRN ×3 (05:44→22:16)
[2019-02-03] MEDS ORDERED: METHADONE HCL 10 MG TABLET (FOR DETOX USE ONLY) PO ONE (06:00)
[2019-02-03 09:54] LABS: HEMATOCRIT 34.5 % (32.4-45.2); HEMOGLOBIN 11.3 GM/dL (10.7-15.3); MCH 30.1 pg (25.7-33.7); MCHC 32.8 g/dl (32.0-36.0); MEAN CELL VOLUME 91.7 fl (80-96); MEAN PLT VOLUME 9.4 fl (7.5-11.1); PLATELET COUNT 223 K/MM3 (134-434); RBC 3.77 M/mm3 (3.60-5.2); RDW 14.1 % (11.6-15.6); WHITE BLOOD COUNT 8.2 K/mm3 (4.0-10.0)
[2019-02-03] MEDS: amLODIPine BESYLATE 10 MG TABLET (FP) PO SCH (10:20)
[2019-02-03] MEDS: PRENATAL VITAMINS W/ FOLIC ACID TABLET (FP) PO SCH (10:21)
[2019-02-03] MEDS: POLYETHYLENE GLYCOL 3350 119 GM BTL PO SCH ×2 (10:21→23:09)
[2019-02-03] MEDS: MINERAL OIL/PETROLAT/WATER TOPICAL CREAM 113 GM JAR TP SCH ×2 (10:21→23:09)
[2019-02-03 10:29] LABS: ALBUMIN 3.5 g/dl (3.4-5.0); BILIRUBIN,TOTAL 0.4 mg/dL (0.2-1); CREATININE 0.9 mg/dL (0.55-1.3); POTASSIUM 4.1 mmol/L (3.5-5.1); TOT PROT 6.8 g/dl (6.4-8.2)
--- NOTE | 2019-02-03 12:40 | PN ---
[facility] COWS - Scale Resting Pulse: 0= [place] 80 or Below Sweatin= Chills/Flushing Restless Observation: 0= Sits Still Pupil Size: 1= Pupils >than Normal Bone or Joint Aches: 1= Mild Discomfort Runny Nose/ Eye Tearin= Nasal Congestion GI Upset > 30mins: 1= Stomach Cramp Tremor Observation of Outstretched Hands: 1= Tremor [place], Not Seen Yawning Observation: 1= 1-2x During Session Anxiety or Irritability: 2=Irritable/Anxious Goose Flesh Skin: 0=Smooth Skin COWS Score: 9 [facility] Progress Note (SOAP) Subjective: 58 years old female admitted on 02/02/19 for opiate withdrawal sx management treating with methadone detox regimen abdomen dressing intact denies pain ate breakfast and lunch ambulating on hallway social with peers Objective: 02/03/19 12:47 Vital Signs Temperature 97.1 F L 02/03/19 09:06 Pulse Rate 68 02/03/19 09:06 Respiratory Rate 16 02/03/19 09:06 Blood Pressure 113/69 02/03/19 09:06 O2 Sat by Pulse Oximetry (%) Laboratory Last Values WBC 8.2 K/mm3 (4.0-10.0) 02/03/19 08:00 RBC 3.77 M/mm3 (3.60-5.2) 02/03/19 08:00 Hgb 11.3 GM/dL (10.7-15.3) 02/03/19 08:00 Hct 34.5 % (32.4-45.2) 02/03/19 08:00 MCV 91.7 fl (80-96) 02/03/19 08:00 MCH 30.1 pg (25.7-33.7) 02/03/19 08:00 MCHC 32.8 g/dl (32.0-36.0) 02/03/19 08:00 RDW 14.1 % (11.6-15.6) 02/03/19 08:00 Plt Count 223 K/MM3 (134-434) 02/03/19 08:00 MPV 9.4 fl (7.5-11.1) D 02/03/19 08:00 Sodium 143 mmol/L (136-145) 02/03/19 08:00 Potassium 4.1 mmol/L (3.5-5.1) 02/03/19 08:00 Chloride 107 mmol/L (98-107) 02/03/19 08:00 Carbon Dioxide 27 mmol/L (21-32) 02/03/19 08:00 Anion Gap 9 MMOL/L (8-16) 02/03/19 08:00 BUN 16.0 mg/dL (7-18) 02/03/19 08:00 Creatinine 0.9 mg/dL (0.55-1.3) 02/03/19 08:00 Est GFR (CKD-EPI)AfAm 80.55 02/03/19 08:00 Est GFR (CKD-EPI)NonAf 69.50 02/03/19 08:00 Random Glucose 89 mg/dL (74-106) 02/03/19 08:00 Calcium 9.0 mg/dL (8.5-10.1) 02/03/19 08:00 Total Bilirubin 0.4 mg/dL (0.2-1) 02/03/19 08:00 AST 42 U/L (15-37) H 02/03/19 08:00 ALT 28 U/L (13-61) 02/03/19 08:00 Alkaline Phosphatase 78 U/L (45-117) 02/03/19 08:00 Total Protein 6.8 g/dl (6.4-8.2) 02/03/19 08:00 Albumin 3.5 g/dl (3.4-5.0) 02/03/19 08:00 RPR Titer Nonreactive (NONREACTIVE) 02/03/19 08:00 lab noted Assessment: 02/03/19 12:47 opiate withdrawal Plan: methadone regimen
--- NOTE | 2019-02-03 12:41 | PN ---
[facility] Progress Note Note: no cows upon admission cows on 02/03/19 is 9
[2019-02-03] MEDS: MELATONIN 5 MG TABLETS PO PRN (22:16)
[2019-02-03] MEDS: THIAMINE HCL 100 MG TABLET (FP) PO SCH (22:16)
[2019-02-04] MEDS: DOCUSATE SODIUM 100 MG CAPSULE (FP) PO SCH (05:56)
[2019-02-04] MEDS: METHOCARBAMOL 500 MG TABLET PO PRN (05:56)
[2019-02-04] MEDS: METHADONE HCL 5 MG TABLET (FOR DETOX USE ONLY) PO SCH ×2 (05:56→14:44)
[2019-02-04] MEDS: IBUPROFEN 600 MG TABLET (FP) PO PRN (05:58)
[2019-02-04 09:23] VITALS: BP 128/72; PULSE 65; TEMP 97.7
[2019-02-04] MEDS: MINERAL OIL/PETROLAT/WATER TOPICAL CREAM 113 GM JAR TP SCH (09:43)
[2019-02-04] MEDS: PRENATAL VITAMINS W/ FOLIC ACID TABLET (FP) PO SCH (09:43)
[2019-02-04] MEDS: amLODIPine BESYLATE 10 MG TABLET (FP) PO SCH (09:43)
--- NOTE | 2019-02-04 13:48 | DS ---
[facility] Detox Discharge Summary Admission Date: 02/02/19 Discharge Date: 02/04/19 - History Present History: Opioid Dependence Additional Comments: 58 years old female admitted on 01/28/19 for opiate withdrawal sx management treated with methadone detox regimen transferred to surgical department due to ventral hernia surgically repaired on 02/01/19 returned to detox facility on 02/02/19 continue opiate detoxing patient completed opiate detox regimen [facility]one maintenance program patient is alert oriented x 3 ate breakfast ADL's independent respiratory clear lung bilaterally on auscultation skin warm and dry extremities full range of motion ambulating from bed to bathroom to nurse station to counselor's room steady gait speech clearly coherently Pertinent Past History: patient agrees post op follow up with the surgeon today transportation arranged by the counselor patient has a supportive daughter who will stand by for support - Physical Exam Results Vital Signs: Vital Signs Temperature 97.7 F 02/04/19 09:23 Pulse Rate 65 02/04/19 09:23 Respiratory Rate 18 02/04/19 09:23 Blood Pressure 128/72 02/04/19 09:23 O2 Sat by Pulse Oximetry (%) Pertinent Admission Physical Exam Findings: opiate withdrawal Laboratory Last Values WBC 8.2 K/mm3 (4.0-10.0) 02/03/19 08:00 RBC 3.77 M/mm3 (3.60-5.2) 02/03/19 08:00 Hgb 11.3 GM/dL (10.7-15.3) 02/03/19 08:00 Hct 34.5 % (32.4-45.2) 02/03/19 08:00 MCV 91.7 fl (80-96) 02/03/19 08:00 MCH 30.1 pg (25.7-33.7) 02/03/19 08:00 MCHC 32.8 g/dl (32.0-36.0) 02/03/19 08:00 RDW 14.1 % (11.6-15.6) 02/03/19 08:00 Plt Count 223 K/MM3 (134-434) 02/03/19 08:00 MPV 9.4 fl (7.5-11.1) D 02/03/19 08:00 Sodium 143 mmol/L (136-145) 02/03/19 08:00 Potassium 4.1 mmol/L (3.5-5.1) 02/03/19 08:00 Chloride 107 mmol/L (98-107) 02/03/19 08:00 Carbon Dioxide 27 mmol/L (21-32) 02/03/19 08:00 Anion Gap 9 MMOL/L (8-16) 02/03/19 08:00 BUN 16.0 mg/dL (7-18) 02/03/19 08:00 Creatinine 0.9 mg/dL (0.55-1.3) 02/03/19 08:00 Est GFR (CKD-EPI)AfAm 80.55 02/03/19 08:00 Est GFR (CKD-EPI)NonAf 69.50 02/03/19 08:00 Random Glucose 89 mg/dL (74-106) 02/03/19 08:00 Calcium 9.0 mg/dL (8.5-10.1) 02/03/19 08:00 Total Bilirubin 0.4 mg/dL (0.2-1) 02/03/19 08:00 AST 42 U/L (15-37) H 02/03/19 08:00 ALT 28 U/L (13-61) 02/03/19 08:00 Alkaline Phosphatase 78 U/L (45-117) 02/03/19 08:00 Total Protein 6.8 g/dl (6.4-8.2) 02/03/19 08:00 Albumin 3.5 g/dl (3.4-5.0) 02/03/19 08:00 RPR Titer Nonreactive (NONREACTIVE) 02/03/19 08:00 Vital Signs Temperature 97.7 F 02/04/19 09:23 Pulse Rate 65 02/04/19 09:23 Respiratory Rate 18 02/04/19 09:23 Blood Pressure 128/72 02/04/19 09:23 O2 Sat by Pulse Oximetry (%) lab noted - Treatment Hospital Course: Detox Protocol Followed, Detoxed Safely, Responded well, Discharged Condition Good, Rehab Referral Accepted Patient has Accepted a Rehab Referral to: [facility] - Medication Discharge Medications: Ambulatory Orders Amlodipine Besylate 10 mg PO DAILY 03/07/17 Cholecalciferol (Vitamin D3) [Vitamin D3 -] 1,000 unit PO DAILY 03/07/17 Aripiprazole [Abilify -] 10 mg PO PRN PRN 10/10/18 Naloxone HCl [Narcan] 4 mg NS ASDIR PRN #1 spray 01/29/19 Acetaminophen [Tylenol .Regular Strength -] 650 mg PO Q6H tablet 02/02/19 Ketorolac Tromethamine [Toradol -] 10 mg PO Q6HPO tablet 02/02/19 - Diagnosis (1) Opioid dependence with withdrawal Status: Acute (2) Essential hypertension Status: Chronic (3) GERD (gastroesophageal reflux disease) Status: Chronic Qualifiers: Esophagitis presence: without esophagitis Qualified Code(s): K21.9 - Gastro -esophageal reflux disease without esophagitis (4) Opioid dependence with withdrawal Status: Acute (5) Substance induced mood disorder Status: Suspected - AMA Did Patient Leave Against Medical Advice: No COWS (PN) - Opiate Withdrawal Resting Pulse: 0= ME 80 or Below Sweatin= Chills/Flushing Restless Observation: 0= Sits Still Pupil Size: 0= Normal to Room Light Bone or Joint Aches: 1= Mild Discomfort Runny Nose/ Eye Tearin= None GI Upset > 30mins: 0= None Tremor Observation of Outstretched Hands: 1= Tremor [place], Not Seen Yawning Observation: 0= None Anxiety or Irritability: 1=Feels Anxious/Irritable Goose Flesh Skin: 0=Smooth Skin COWS Score: 4
== END 2019-02-04 09:46 | disposition home or self-care (01) | DRG 773 ==
LOC: YASAS 17:45 → Y3N 20:33
PROVIDERS: ADMIT Allergy & Immunology; ATTEND Allergy & Immunology
PROC: HZ2ZZZZ Detoxification Services for Substance Abuse Treatment (ICD-10-PCS; principal; 2019-02-02)
DX: F11.23 Opioid dependence with withdrawal (principal); F19.24 Other psychoactive substance dependence with psychoactive substance-induced mood disorder; I10 Essential (primary) hypertension; K21.9 Gastro-esophageal reflux disease without esophagitis; K59.00 Constipation, unspecified; E55.9 Vitamin D deficiency, unspecified; Z87.891 Personal history of nicotine dependence
CPT/HCPCS: 36415; 80053; 85027; 86593

== ENCOUNTER 2019-03-04 10:04 | Inpatient (IN) | payer OTHER ==
[2019-03-04 11:09] VITALS: BMI 23.8
--- NOTE | 2019-03-04 13:19 | HP ---
COWS - Scale Resting Pulse: 1= WI 81-100 Sweatin= Chills/Flushing Restless Observation: 1= Difficult to Sit Still Pupil Size: 0= Normal to Room Light Bone or Joint Aches: 1= Mild Discomfort Runny Nose/ Eye Tearin= Runny Nose/Eyes GI Upset > 30mins: 1= Stomach Cramp Tremor Observation: 0= None Yawning Observation: 2= >3x During Session Anxiety or Irritability: 2=Irritable/Anxious Goose Flesh Skin: 0=Smooth Skin COWS Score: 11 CIWA Score - Admission Criteria OASAS Guidelines: Admission for Medically Managed Detox: Requires at least one of the followin. CIWA greater than 12 2. Seizures within the past 24 hours 3. Delirium tremens within the past 24 hours 4. Hallucinations within the past 24 hours 5. Acute intervention needed for co occurring medical disorder 6. Acute intervention needed for co occurring psychiatric disorder 7. Severe withdrawal that cannot be handled at a lower level of care (continued vomiting, continued diarrhea, abnormal vital signs) requiring intravenous medication and/or fluids 8. Admitting History and Physical - Admission History of Present Illness: 58 year old female with opioid dependence who was here in detox and then had an umbilical hernia repair with mesh and given oral opioids that caused her to relapse. Now she is here requesting detox once again. She is using 12-16 percocets a day, last one 5:30Am today. No other substance of use. PMH: GERD< HTN Psurg: Left toe surgery, hernia repaired 2 C/S's Psych: Depression and Anxiety. 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 History Source: Patient Limitations to Obtaining History: No Limitations - Past Medical History Cardiovascular: Yes: HTN Gastrointestinal: Yes: Constipation, GERD Psych: Yes: Addictions (percocet - just entered rehab), Anxiety, Depression - Past Surgical History Past Surgical History: Yes: (x2) - Smoking History Smoking history: Former smoker Have you smoked in the past 12 months: No If you are a former smoker, when did you quit?: many years ago - Alcohol/Substance Use Hx Alcohol Use: No History of Substance Use: reports: Cocaine (remote snorting - quit many years ago), Prescription (percocet - used up to 13 daily, started rehab 3d ago) - Social History Usual Living Arrangement: Yes: Alone Do you think of yourself as: Declined to answer ADL: Independent 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 History of Recent Travel: No Admission ROS [facility] Allergies/Adverse Reactions: Allergies Allergy/AdvReac Type Severity Reaction Status Date / Time No Known Allergies Allergy Verified 03/04/19 10:49 - Ebola screening Have you traveled outside of the country in the last 21 days: No (N) Have you had contact with anyone from an Ebola affected area: No Have you been sick,other than usual withdrawal symptoms: No Do you have a fever: No - Review of Systems Constitutional: No Symptoms Reported EENT: reports: No Symptoms Reported Respiratory: reports: No Symptoms reported Cardiac: reports: No Symptoms Reported GI: reports: No Symptoms Reported : reports: No Symptoms Reported Musculoskeletal: reports: No Symptoms Reported Integumentary: reports: No Symptoms Reported Neuro: reports: No Symptoms reported Endocrine: reports: No Symptoms Reported Hematology: reports: No Symptoms Reported Psychiatric: reports: Judgement Intact, Mood/Affect Appropiate, Orientated x3 Other Systems: Reviewed and Negative Patient History - Patient Medical History Hx Anemia: No Hx Asthma: No Hx Chronic Obstructive Pulmonary Disease (COPD): No Hx Cancer: No Hx Cardiac Disorders: No Hx Congestive Heart Failure: No Hx Hypertension: Yes Hx Hypercholesterolemia: No Hx Pacemaker: No HX Cerebrovascular Accident: No Hx Seizures: No Hx Dementia: No Hx Diabetes: No Hx Gastrointestinal Disorders: Yes (Hx of GERD) Hx Liver Disease: No Hx Genitourinary Disorders: No Hx Sexually Transmitted Disorders: No Hx Renal Disease (ESRD): No Hx Thyroid Disease: No Hx Human Immunodeficiency Virus (HIV): No (last 10/06 negative) Hx Hepatitis C: No Hx Depression: Yes Hx Suicide Attempt: No Hx Bipolar Disorder: No Hx Schizophrenia: No - Patient Surgical History Past Surgical History: No Hx Neurologic Surgery: No Hx Cataract Extraction: No Hx Cardiac Surgery: No Hx Lung Surgery: No Hx Breast Surgery: No Hx Breast Biopsy: No Hx Abdominal Surgery: No Hx Appendectomy: No Hx Cholecystectomy: No Hx Genitourinary Surgery: No Hx Section: Yes Hx Orthopedic Surgery: No Other Surgical History: SURGERY FOR GANGLiON CYST OF RIGHT HAND in 2017 Anesthesia Reaction: No - PPD History Date: 07/02/18 Results: 0 mm - Smoking Cessation Smoking history: Former smoker Have you smoked in the past 12 months: No If you are a former smoker, when did you quit?: many years ago Hx Chewing Tobacco Use: No Initiated information on smoking cessation: No - Substances abused Other Other (specify): PERCOCET Substance route: Oral Frequency: Daily Amount used: 20MG PER USE UP TO 15X A DAY Age of first use: 54 Date of last use: 03/04/19 Admission Physical Exam BHS - Vital Signs Vital Signs: Vital Signs - 24 hr 03/04/19 10:43 Temperature 98.3 F Pulse Rate 71 Respiratory 18 Rate Blood Pressure 155/103 H - Physical General Appearance: Yes: Mild Distress HEENTM: Yes: EOMI, Hearing grossly Normal, Normal ENT Inspection, Normocephalic , Normal Voice, OSVALDO, Pharynx Normal, Tm's normal Respiratory: Yes: Chest Non-Tender, Lungs Clear, Normal Breath Sounds, No Respiratory Distress, No Accessory Muscle Use Neck: Yes: No masses,lesions,Nodules, Supple, Trachea in good position Breast: Yes: Breast Exam Deferred Cardiology: Yes: Regular Rhythm, Regular Rate, S1, S2 Abdominal: Yes: Normal Bowel Sounds, Flat, Soft, Tenderness, Surgical Scar Genitourinary: Yes: Within Normal Limits Back: Yes: Normal Inspection Musculoskeletal: Yes: full range of Motion, Gait Steady, Pelvis Stable Extremities: Yes: Normal Capillary Refill, Normal Inspection, Normal Range of Motion, Non-Tender Neurological: Yes: 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 NML intact, Fully Oriented, Alert, Motor Strength 5/5, Normal Mood/Affect, Normal Response Integumentary: Yes: Normal Color, Warm Lymphatic: Yes: Within Normal Limits - Diagnostic (1) Anxiety and depression Current Visit: Yes Status: Acute (2) History of umbilical hernia repair Current Visit: Yes Status: Acute (3) Opioid dependence with withdrawal Current Visit: Yes Status: Acute (4) Periumbilical pain Current Visit: Yes Status: Acute (5) Status post laparoscopic hernia repair Current Visit: Yes Status: Acute (6) Essential hypertension Current Visit: Yes Status: Chronic (7) GERD (gastroesophageal reflux disease) Current Visit: Yes Status: Chronic Qualifiers: Esophagitis presence: without esophagitis Qualified Code(s): K21.9 - Gastro -esophageal reflux disease without esophagitis (8) Insomnia Current Visit: Yes Status: Chronic Screened but not Admitted - Documentation of Visit Screened but not Admitted: No Breathalyzer - Breathalyzer Breathalyzer: 0 Urine Drug Screen - Test Device Lot number: [id number] Expiration date: 09/17/20 - Control Is test valid?: Yes - Results Drug screen NEGATIVE: No Urine drug screen results: OXY-Oxycodone, BZO-Benzodiazepines Inpatient Rehab Admission - Rehab Decision to Admit Inpatient rehab admission?: No
[2019-03-04] MEDS ORDERED: MENTHOL/PHENOL 1 EACH UD MM PRN (13:21)
[2019-03-04] MEDS ORDERED: MAG HYDROX/AL HYDROX/SIMETH 30 ML UNIT-DOSE CUP PO PRN (13:21)
[2019-03-04] MEDS ORDERED: MAGNESIUM CITRATE 300 ML BOTTLE PO PRN (13:21)
[2019-03-04] MEDS ORDERED: BISMUTH SUBSALICYLATE 524 MG/30 ML UD PO PRN (13:21)
[2019-03-04] MEDS ORDERED: MAGNESIUM HYDROX 2400MG/30ML ORAL SUSPENSION 30 ML CUP PO PRN (13:21)
[2019-03-04] MEDS ORDERED: hydrOXYzine PAMOATE 25 MG CAPSULE (FP) PO PRN (13:21)
[2019-03-04] MEDS ORDERED: cloNIDine HCL 0.1 MG TABLET PO PRN (13:21)
[2019-03-04] MEDS ORDERED: ACETAMINOPHEN 325 MG TABLET (FP) PO PRN (13:21)
[2019-03-04] MEDS ORDERED: ARIPiprazole 10 MG TABLET PO PRN (13:23)
[2019-03-04] MEDS ORDERED: diazePAM 2 MG TABLET PO PRN (13:31)
[2019-03-04] MEDS ORDERED: METHADONE HCL 10 MG TABLET (FOR DETOX USE ONLY) PO ONE (13:50)
[2019-03-04] MEDS: ACETAMINOPHEN 325 MG TABLET (FP) PO PRN (15:01)
[2019-03-04] MEDS: diazePAM 5 MG TABLET PO PRN ×2 (16:36→22:25)
[2019-03-04 17:22] LABS: HEMATOCRIT 36.2 % (32.4-45.2); HEMOGLOBIN 11.9 GM/dL (10.7-15.3); MCH 29.8 pg (25.7-33.7); MCHC 32.9 g/dl (32.0-36.0); MEAN CELL VOLUME 90.5 fl (80-96); MEAN PLT VOLUME 9.5 fl (7.5-11.1); PLATELET COUNT 279 K/MM3 (134-434); WHITE BLOOD COUNT 4.6 K/mm3 (4.0-10.0)
[2019-03-04 17:35] LABS: BILIRUBIN,TOTAL 0.3 mg/dL (0.2-1); BLOOD UREA NITROGEN 9.8 mg/dL (7-18); CALCIUM 9.8 mg/dL (8.5-10.1); CREATININE 0.8 mg/dL (0.55-1.3); POTASSIUM 4.3 mmol/L (3.5-5.1); TOT PROT 7.8 g/dl (6.4-8.2)
[2019-03-04] MEDS: THIAMINE HCL 100 MG TABLET (FP) PO SCH (22:25)
[2019-03-04] MEDS: METHOCARBAMOL 500 MG TABLET PO PRN (22:29)
[2019-03-04] MEDS: COLLOIDAL OATMEAL 1 BAR EACH TP PRN (22:29)
[2019-03-04] MEDS: MELATONIN 5 MG TABLETS PO PRN (22:30)
[2019-03-05] MEDS: ACETAMINOPHEN 325 MG TABLET (FP) PO PRN (06:05)
[2019-03-05] MEDS: diazePAM 5 MG TABLET PO PRN ×3 (06:05→18:41)
[2019-03-05] MEDS ORDERED: METHADONE HCL 10 MG TABLET (FOR DETOX USE ONLY) ONE (09:24)
[2019-03-05] MEDS ORDERED: METHADONE HCL 5 MG TABLET (FOR DETOX USE ONLY) ONE (09:24)
[2019-03-05] MEDS ORDERED: METHADONE (DETOX) 20 MG, METHADONE (DETOX) 5 MG PO ONE (10:00)
[2019-03-05] MEDS: amLODIPine BESYLATE 10 MG TABLET (FP) PO SCH (10:29)
[2019-03-05] MEDS: CHOLECALCIFEROL (VIT D3) 1,000 UNIT (25 MCG) TABLET PO SCH (10:29)
[2019-03-05] MEDS: PRENATAL VITAMINS W/ FOLIC ACID TABLET (FP) PO SCH (10:31)
[2019-03-05] MEDS: METHOCARBAMOL 500 MG TABLET PO PRN ×2 (10:32→22:14)
[2019-03-05] MEDS ORDERED: P-EPHED 60MG/TRIPROLIDI 2.5MG TABLET PO PRN (11:44)
--- NOTE | 2019-03-05 11:44 | PN ---
[facility] COWS - Scale Resting Pulse: 0= WI 80 or Below Sweatin=Flushed/Facial Moisture Restless Observation: 1= Difficult to Sit Still Pupil Size: 0= Normal to Room Light Bone or Joint Aches: 2= Severe Diffuse Aches Runny Nose/ Eye Tearin= Runny Nose/Eyes GI Upset > 30mins: 1= Stomach Cramp Tremor Observation of Outstretched Hands: 1= Tremor [place], Not Seen Yawning Observation: 1= 1-2x During Session Anxiety or Irritability: 2=Irritable/Anxious Goose Flesh Skin: 0=Smooth Skin COWS Score: 12 S Progress Note (SOAP) Subjective: stomach cramping sweats running nose chills body aches dry/itchy skin Objective: 03/05/19 11:43 Vital Signs Temperature 98.2 F 03/05/19 10:00 Pulse Rate 80 03/05/19 10:00 Respiratory Rate 18 03/05/19 10:00 Blood Pressure 133/74 03/05/19 10:00 O2 Sat by Pulse Oximetry (%) Laboratory Tests 03/04/19 03/04/19 03/04/19 14:00 14:00 14:00 WBC 4.6 RBC 4.00 Hgb 11.9 Hct 36.2 MCV 90.5 MCH 29.8 MCHC 32.9 RDW 13.0 Plt Count 279 D MPV 9.5 Sodium 140 Potassium 4.3 Chloride 106 Carbon Dioxide 28 Anion Gap 5 L BUN 9.8 Creatinine 0.8 Est GFR (CKD-EPI)AfAm 92.87 Est GFR (CKD-EPI)NonAf 80.13 Random Glucose 77 Calcium 9.8 Total Bilirubin 0.3 AST 22 ALT 23 Alkaline Phosphatase 134 H Total Protein 7.8 Albumin 4.0 RPR Titer Nonreactive aaox3 ambulating no acute distress Assessment: 03/05/19 11:43 withdrawals Plan: continue detox increase fluids colace 100mg tid eurcerin oint acitifed prn
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
[2019-03-05] MEDS: MINERAL OIL/PETROLAT/WATER TOPICAL CREAM 113 GM JAR TP SCH ×2 (15:05→22:13)
[2019-03-05] MEDS: DOCUSATE SODIUM 100 MG CAPSULE (FP) PO SCH ×2 (15:05→22:12)
[2019-03-05] MEDS: valACYclovir HCL 500 MG TABLET (FP) PO SCH (22:12)
[2019-03-05] MEDS: THIAMINE HCL 100 MG TABLET (FP) PO SCH (22:13)
[2019-03-05] MEDS: MELATONIN 5 MG TABLETS PO PRN (22:14)
[2019-03-06] MEDS: ACETAMINOPHEN 325 MG TABLET (FP) PO PRN ×2 (01:02→21:38)
[2019-03-06] MEDS: diazePAM 5 MG TABLET PO PRN ×5 (01:08→21:39)
[2019-03-06] MEDS: DOCUSATE SODIUM 100 MG CAPSULE (FP) PO SCH ×3 (05:50→21:40)
[2019-03-06] MEDS: METHOCARBAMOL 500 MG TABLET PO PRN ×2 (05:51→21:42)
[2019-03-06] MEDS ORDERED: METHADONE HCL 10 MG TABLET (FOR DETOX USE ONLY) PO ONE (10:00)
[2019-03-06] MEDS: amLODIPine BESYLATE 10 MG TABLET (FP) PO SCH (10:05)
[2019-03-06] MEDS: valACYclovir HCL 500 MG TABLET (FP) PO SCH (10:05)
[2019-03-06] MEDS: MINERAL OIL/PETROLAT/WATER TOPICAL CREAM 113 GM JAR TP SCH ×2 (10:06→21:39)
[2019-03-06] MEDS: CHOLECALCIFEROL (VIT D3) 1,000 UNIT (25 MCG) TABLET PO SCH (10:50)
[2019-03-06] MEDS: PRENATAL VITAMINS W/ FOLIC ACID TABLET (FP) PO SCH (10:50)
--- NOTE | 2019-03-06 12:16 | PN ---
BHS COWS - Scale Resting Pulse: 0= [place] 80 or Below Sweatin= Chills/Flushing Restless Observation: 1= Difficult to Sit Still Pupil Size: 0= Normal to Room Light Bone or Joint Aches: 1= Mild Discomfort Runny Nose/ Eye Tearin= Nasal Congestion GI Upset > 30mins: 0= None Tremor Observation of Outstretched Hands: 1= Tremor [place], Not Seen Yawning Observation: 1= 1-2x During Session Anxiety or Irritability: 2=Irritable/Anxious Goose Flesh Skin: 0=Smooth Skin COWS Score: 8 BHS Progress Note (SOAP) Subjective: sweats shakes body aches restless Objective: 03/06/19 12:15 Vital Signs Temperature 96.2 F L 03/06/19 09:41 Pulse Rate 70 03/06/19 09:41 Respiratory Rate 17 03/06/19 09:41 Blood Pressure 125/62 03/06/19 09:41 O2 Sat by Pulse Oximetry (%) Laboratory Tests 03/04/19 03/04/19 03/04/19 14:00 14:00 14:00 WBC 4.6 RBC 4.00 Hgb 11.9 Hct 36.2 MCV 90.5 MCH 29.8 MCHC 32.9 RDW 13.0 Plt Count 279 D MPV 9.5 Sodium 140 Potassium 4.3 Chloride 106 Carbon Dioxide 28 Anion Gap 5 L BUN 9.8 Creatinine 0.8 Est GFR (CKD-EPI)AfAm 92.87 Est GFR (CKD-EPI)NonAf 80.13 Random Glucose 77 Calcium 9.8 Total Bilirubin 0.3 AST 22 ALT 23 Alkaline Phosphatase 134 H Total Protein 7.8 Albumin 4.0 RPR Titer Nonreactive aaox3 ambulating no acute distress Assessment: 03/06/19 12:16 withdrawal sx Plan: continue detox increase fluids
[2019-03-06] MEDS: IBUPROFEN 400 MG TABLET (FP) PO PRN (18:07)
[2019-03-06] MEDS: THIAMINE HCL 100 MG TABLET (FP) PO SCH (21:38)
[2019-03-06] MEDS: MELATONIN 5 MG TABLETS PO PRN (21:55)
[2019-03-07] MEDS: DOCUSATE SODIUM 100 MG CAPSULE (FP) PO SCH ×3 (05:22→22:28)
[2019-03-07] MEDS: diazePAM 5 MG TABLET PO PRN ×2 (05:22→12:22)
[2019-03-07] MEDS: ACETAMINOPHEN 325 MG TABLET (FP) PO PRN ×2 (05:23→16:57)
[2019-03-07] MEDS: METHOCARBAMOL 500 MG TABLET PO PRN ×2 (05:24→18:26)
[2019-03-07] MEDS ORDERED: METHADONE HCL 10 MG TABLET (FOR DETOX USE ONLY) ONE (09:08)
[2019-03-07] MEDS ORDERED: METHADONE HCL 5 MG TABLET (FOR DETOX USE ONLY) ONE (09:08)
[2019-03-07] MEDS ORDERED: METHADONE (DETOX) 10 MG, METHADONE (DETOX) 5 MG PO ONE (10:00)
[2019-03-07] MEDS: CHOLECALCIFEROL (VIT D3) 1,000 UNIT (25 MCG) TABLET PO SCH (10:11)
[2019-03-07] MEDS: amLODIPine BESYLATE 10 MG TABLET (FP) PO SCH (10:12)
[2019-03-07] MEDS: valACYclovir HCL 500 MG TABLET (FP) PO SCH (10:12)
[2019-03-07] MEDS: PRENATAL VITAMINS W/ FOLIC ACID TABLET (FP) PO SCH (10:12)
[2019-03-07] MEDS: MINERAL OIL/PETROLAT/WATER TOPICAL CREAM 113 GM JAR TP SCH ×2 (10:13→22:28)
[2019-03-07] MEDS ORDERED: BENZOCAINE 28 GM HEMORRHOIDAL OINTMENT PR PRN (10:31)
[2019-03-07] MEDS ORDERED: WITCH HAZEL 50% (TUCKS) 40 PAD/JAR PAD TP PRN (10:34)
--- NOTE | 2019-03-07 17:13 | PN ---
BHS COWS - Scale Resting Pulse: 2= [place] 101-120 Sweatin= Chills/Flushing Restless Observation: 1= Difficult to Sit Still Pupil Size: 0= Normal to Room Light Bone or Joint Aches: 2= Severe Diffuse Aches Runny Nose/ Eye Tearin= None GI Upset > 30mins: 0= None Tremor Observation of Outstretched Hands: 0= None Yawning Observation: 1= 1-2x During Session Anxiety or Irritability: 2=Irritable/Anxious Goose Flesh Skin: 0=Smooth Skin COWS Score: 9 BHS Progress Note (SOAP) Subjective: Sweating, Body Aches, Anxious, Restless. Objective: PATIENT A & O X 3, OBSERVED AMBULATING ON DETOX UNIT UNASSISTED. IN NO ACUTE DISTRESS. 03/07/19 17:11 Vital Signs Temperature 96.8 F L 03/07/19 15:40 Pulse Rate 116 H 03/07/19 15:40 Respiratory Rate 20 03/07/19 15:40 Blood Pressure 159/89 03/07/19 15:40 O2 Sat by Pulse Oximetry (%) Laboratory Tests 03/04/19 03/04/19 03/04/19 14:00 14:00 14:00 WBC 4.6 RBC 4.00 Hgb 11.9 Hct 36.2 MCV 90.5 MCH 29.8 MCHC 32.9 RDW 13.0 Plt Count 279 D MPV 9.5 Sodium 140 Potassium 4.3 Chloride 106 Carbon Dioxide 28 Anion Gap 5 L BUN 9.8 Creatinine 0.8 Est GFR (CKD-EPI)AfAm 92.87 Est GFR (CKD-EPI)NonAf 80.13 Random Glucose 77 Calcium 9.8 Total Bilirubin 0.3 AST 22 ALT 23 Alkaline Phosphatase 134 H Total Protein 7.8 Albumin 4.0 RPR Titer Nonreactive LABS NOTED. Assessment: 03/07/19 17:12 WITHDRAWAL SYMPTOMS. ELEVATED ALK. PHOS. LEVEL. Plan: CONTINUE DETOX. INCREASE DAILY ORAL WATER INTAKE.
[2019-03-07] MEDS: THIAMINE HCL 100 MG TABLET (FP) PO SCH (22:27)
[2019-03-07] MEDS: MELATONIN 5 MG TABLETS PO PRN (22:29)
[2019-03-07] MEDS: IBUPROFEN 400 MG TABLET (FP) PO PRN (22:30)
[2019-03-08] MEDS: ACETAMINOPHEN 325 MG TABLET (FP) PO PRN ×2 (02:19→22:07)
[2019-03-08] MEDS: METHOCARBAMOL 500 MG TABLET PO PRN ×2 (02:19→17:01)
[2019-03-08] MEDS: DOCUSATE SODIUM 100 MG CAPSULE (FP) PO SCH ×3 (06:18→22:07)
[2019-03-08] MEDS: COLLOIDAL OATMEAL 1 BAR EACH TP PRN (06:25)
[2019-03-08] MEDS ORDERED: METHADONE HCL 10 MG TABLET (FOR DETOX USE ONLY) PO ONE (10:00)
[2019-03-08] MEDS: PRENATAL VITAMINS W/ FOLIC ACID TABLET (FP) PO SCH (10:58)
[2019-03-08] MEDS: valACYclovir HCL 500 MG TABLET (FP) PO SCH (10:58)
[2019-03-08] MEDS: amLODIPine BESYLATE 10 MG TABLET (FP) PO SCH (10:59)
[2019-03-08] MEDS: CHOLECALCIFEROL (VIT D3) 1,000 UNIT (25 MCG) TABLET PO SCH (11:00)
[2019-03-08] MEDS: MINERAL OIL/PETROLAT/WATER TOPICAL CREAM 113 GM JAR TP SCH ×2 (11:00→23:31)
[2019-03-08] MEDS: diazePAM 5 MG TABLET PO PRN ×3 (13:30→22:08)
[2019-03-08] MEDS: HYDROCORTISONE 2.5% TOPICAL CREAM 30 GM TUBE TP SCH ×2 (13:33→22:07)
--- NOTE | 2019-03-08 14:36 | PN ---
BHS COWS - Scale Resting Pulse: 0= [place] 80 or Below Sweatin= Chills/Flushing Restless Observation: 1= Difficult to Sit Still Pupil Size: 0= Normal to Room Light Bone or Joint Aches: 0= None Runny Nose/ Eye Tearin= None GI Upset > 30mins: 0= None Tremor Observation of Outstretched Hands: 1= Tremor [place], Not Seen Yawning Observation: 1= 1-2x During Session Anxiety or Irritability: 0= None Goose Flesh Skin: 0=Smooth Skin COWS Score: 4 BHS Progress Note (SOAP) Subjective: agitation sweats raw noted to by anal area from straining when i use the bathroom to defecate. Objective: 03/08/19 14:40 Vital Signs Temperature 98.1 F 03/08/19 14:24 Pulse Rate 71 03/08/19 14:24 Respiratory Rate 03/08/19 14:24 Blood Pressure 139/61 03/08/19 14:24 O2 Sat by Pulse Oximetry (%) aaox3 ambulating no acute distress Assessment: 03/08/19 14:40 withdrawals Plan: continue valium prn x one day only hydrocortizone pr colace tid d/c in am
[2019-03-08] MEDS: IBUPROFEN 400 MG TABLET (FP) PO PRN (19:35)
[2019-03-08] MEDS: MELATONIN 5 MG TABLETS PO PRN (22:07)
[2019-03-08] MEDS: THIAMINE HCL 100 MG TABLET (FP) PO SCH (22:07)
[2019-03-09] MEDS: diazePAM 5 MG TABLET PO PRN (02:46)
[2019-03-09] MEDS: IBUPROFEN 400 MG TABLET (FP) PO PRN (02:46)
[2019-03-09] MEDS ORDERED: METHADONE HCL 5 MG TABLET (FOR DETOX USE ONLY) PO ONE (06:00)
[2019-03-09] MEDS: DOCUSATE SODIUM 100 MG CAPSULE (FP) PO SCH (06:17)
[2019-03-09 07:00] VITALS: BP 122/85; PULSE 68; TEMP 96.6
--- NOTE | 2019-03-09 09:35 | DS ---
[facility] Detox Discharge Summary Admission Date: 03/04/19 Discharge Date: 03/09/19 - History Present History: Opioid Dependence - Physical Exam Results Vital Signs: Vital Signs Temperature 96.6 F L 03/09/19 07:00 Pulse Rate 68 03/09/19 07:00 Respiratory Rate 16 03/09/19 07:00 Blood Pressure 122/85 03/09/19 07:00 O2 Sat by Pulse Oximetry (%) Pertinent Admission Physical Exam Findings: Vital Signs Temperature 96.6 F L 03/09/19 07:00 Pulse Rate 68 03/09/19 07:00 Respiratory Rate 16 03/09/19 07:00 Blood Pressure 122/85 03/09/19 07:00 O2 Sat by Pulse Oximetry (%) Laboratory Tests 03/04/19 03/04/19 03/04/19 14:00 14:00 14:00 WBC 4.6 RBC 4.00 Hgb 11.9 Hct 36.2 MCV 90.5 MCH 29.8 MCHC 32.9 RDW 13.0 Plt Count 279 D MPV 9.5 Sodium 140 Potassium 4.3 Chloride 106 Carbon Dioxide 28 Anion Gap 5 L BUN 9.8 Creatinine 0.8 Est GFR (CKD-EPI)AfAm 92.87 Est GFR (CKD-EPI)NonAf 80.13 Random Glucose 77 Calcium 9.8 Total Bilirubin 0.3 AST 22 ALT 23 Alkaline Phosphatase 134 H Total Protein 7.8 Albumin 4.0 RPR Titer Nonreactive aaox3 ambulating no acute distress - Treatment Hospital Course: Detox Protocol Followed, Detoxed Safely, Responded well, Discharged Condition Good, Rehab Referral Accepted - Medication Discharge Medications: Ambulatory Orders Amlodipine Besylate 10 mg PO DAILY 03/07/17 Cholecalciferol (Vitamin D3) [Vitamin D3 -] 1,000 unit PO DAILY 03/07/17 Aripiprazole [Abilify -] 10 mg PO PRN PRN 10/10/18 Valacyclovir HCl [Valtrex] 500 mg PO DAILY 03/04/19 - Diagnosis (1) Anxiety and depression Current Visit: Yes Status: Acute (2) Elevated alkaline phosphatase level Current Visit: Yes Status: Chronic (3) History of umbilical hernia repair Current Visit: Yes Status: Acute (4) Opioid dependence with withdrawal Current Visit: Yes Status: Acute (5) Status post laparoscopic hernia repair Current Visit: Yes Status: Acute (6) Substance induced mood disorder Current Visit: Yes Status: Acute (7) Substance-induced sleep disorder Current Visit: Yes Status: Acute (8) Essential hypertension Current Visit: Yes Status: Chronic (9) GERD (gastroesophageal reflux disease) Current Visit: Yes Status: Chronic Qualifiers: Esophagitis presence: without esophagitis Qualified Code(s): K21.9 - Gastro -esophageal reflux disease without esophagitis (10) Insomnia Current Visit: Yes Status: Chronic (11) MDD (major depressive disorder), recurrent episode, moderate Current Visit: Yes Status: Chronic (12) Anxiety Current Visit: No Status: Acute (13) Constipation due to opioid therapy Current Visit: No Status: Acute (14) Depression Current Visit: No Status: Acute (15) Encounter for surgical aftercare following surgery on the digestive system Current Visit: No Status: Acute (16) Incarcerated hernia Current Visit: No Status: Acute (17) Opioid dependence with withdrawal Current Visit: Yes Status: Chronic (18) Umbilical hernia without obstruction and without gangrene Current Visit: No Status: Acute (19) Alcohol dependence with uncomplicated withdrawal Current Visit: Yes Status: Chronic (20) Constipation Current Visit: Yes Status: Chronic Qualifiers: Constipation type: unspecified constipation type Qualified Code(s): K59.00 - Constipation, unspecified (21) Depressive disorder Current Visit: No Status: Chronic (22) History of herpes simplex infection Current Visit: No Status: Chronic (23) MDD (major depressive disorder), single episode Current Visit: No Status: Suspected (24) Substance induced mood disorder Current Visit: No Status: Suspected - AMA Did Patient Leave Against Medical Advice: No
== END 2019-03-09 10:39 | disposition home or self-care (01) | DRG 773 ==
LOC: YASAS 10:04 → Y6N 13:48
PROVIDERS: ADMIT Allergy & Immunology; ATTEND Allergy & Immunology
PROC: HZ2ZZZZ Detoxification Services for Substance Abuse Treatment (ICD-10-PCS; principal; 2019-03-04)
DX: F11.23 Opioid dependence with withdrawal (principal); F10.230 Alcohol dependence with withdrawal, uncomplicated; F41.9 Anxiety disorder, unspecified; F19.24 Other psychoactive substance dependence with psychoactive substance-induced mood disorder; F19.282 Other psychoactive substance dependence with psychoactive substance-induced sleep disorder; F33.1 Major depressive disorder, recurrent, moderate; I10 Essential (primary) hypertension; K21.9 Gastro-esophageal reflux disease without esophagitis; G47.00 Insomnia, unspecified; R74.0 Nonspecific elevation of levels of transaminase and lactic acid dehydrogenase [LDH]; K59.00 Constipation, unspecified; R10.33 Periumbilical pain; Z87.891 Personal history of nicotine dependence; Z86.19 Personal history of other infectious and parasitic diseases; Z91.410 Personal history of adult physical and sexual abuse
CPT/HCPCS: 36415; 80053; 85027; 86593